=== PATIENT | female | born 1930 | race Caucasian/White ===

== ENCOUNTER 2017-11-14 11:50 | Inpatient (IN) | payer MEDICARE, OTHER ==
[2017-11-14] MEDS ORDERED: SODIUM CHLORIDE 1,000 ML IV STA (12:44)
[2017-11-14] MEDS ORDERED: ACETAMINOPHEN 1000 MG/100 ML VIAL (NON FORMULARY) IVPB ONE (12:47)
[2017-11-14] MEDS ORDERED: PIPERACILLIN/TAZOB 4.5 GM 4.5 GM in DEXTROSE 5%-WATER - 100 ML IVPB ONE (12:47)
[2017-11-14 12:49] VITALS: BMI 31.7
[2017-11-14] MEDS ORDERED: PIPERACILLIN/TAZOB 4.5 GM 4.5 GM/100 ML BAG IVPB ONE (13:05)
[2017-11-14] MEDS ORDERED: VANCOMYCIN 1 GRAM (PRE-DOCKED) 1,000 MG/250 ML BAG IVPB ONE (13:05)
[2017-11-14 13:10] LABS: BASO % 0.6 % (0-2.0); EOS % 0.2 % (0-4.5); HEMATOCRIT 40.9 % (32.4-45.2); HEMOGLOBIN 13.6 GM/dL (10.7-15.3); LYMPH % 7.7 % (8-40); MCH 32.2 pg (25.7-33.7); MCHC 33.3 g/dl (32.0-36.0); MEAN CELL VOLUME 96.9 fl (80-96); MEAN PLT VOLUME 11.3 fl (7.5-11.1); MONO % 10.4 % (3.8-10.2); NEUT % 81.1 % (42.8-82.8); PLATELET COUNT 118 K/MM3 (134-434); RBC 4.23 M/mm3 (3.60-5.2); RDW 12.2 % (11.6-15.6); WHITE BLOOD COUNT 6.1 K/mm3 (4.0-10.0)
[2017-11-14 13:13] LABS: URINE APPEARANCE CLEAR; URINE BILIRUBIN NEGATIVE (<2.0 mg/dL); URINE BLOOD NEGATIVE (NEGATIVE); URINE COLOR YELLOW; URINE GLUCOSE (UA) NEGATIVE (NEGATIVE); URINE KETONE NEGATIVE (NEGATIVE); URINE LEUK ESTERASE NEGATIVE (NEGATIVE); URINE NITRITE NEGATIVE (NEGATIVE); URINE UROBILINOGEN NEGATIVE mg/dL (0.2-1.0)
[2017-11-14 13:14] LABS: URINE PROTEIN 1+ (NEGATIVE)
--- NOTE | 2017-11-14 13:17 | PDOC ---
History of Present Illness - General History Source: Patient, Family, Snf Records Exam Limitations: Clinical Condition - History of Present Illness Initial Comments: 11/14/17 14:26 The patient is an 87 year old female, accompanied by her daughter, with past medical history of hypertension s/p pacemaker, arthritis, and dementia who presents to the ED with altered mental status that began today. The patients family member states she was increasingly lethargic over the past few days with a productive cough and decreased in appetite. This morning the daughter reports the patient was unarousable, not speaking clearly, and is not at her normal baseline where she is usually fully aware, walking and talking. She also reports the patient had urinary incontinence today as well. Family denies any sick contacts or recent illness. No further history can be provided due to patients change in mental status. <Kristie Mendoza - Last Filed: 11/14/17 15:59> <Valeria Leach - Last Filed: 11/14/17 16:21> - General Chief Complaint: Lethargy Stated Complaint: WEAKNESS Time Seen by Provider: 11/14/17 12:28 Past History <Kristie Mendoza - Last Filed: 11/14/17 15:59> - Past Medical History Cardiac Disorders: Yes COPD: No Dementia: Yes HTN: Yes Hypercholesterolemia: Yes Psychiatric Problems: Yes (DEPRESSION) - Surgical History Cardiac Surgery: Yes (PPM) - Suicide/Smoking/Psychosocial Hx Smoking History: Never smoked Have you smoked in the past 12 months: No Information on smoking cessation initiated: No Hx Alcohol Use: No Drug/Substance Use Hx: No Substance Use Type: None <Valeria Leach - Last Filed: 11/14/17 16:21> - Past Medical History Allergies/Adverse Reactions: Allergies Allergy/AdvReac Type Severity Reaction Status Date / Time No Known Allergies Allergy Verified 11/14/17 13:03 Home Medications: Ambulatory Orders Aspirin [ASA -] 81 mg PO DAILY 11/14/17 Furosemide [Lasix] 20 mg PO DAILY 11/14/17 Review of Systems - Review of Systems Able to Perform ROS?: No (due to clinical condition) <Kristie Mendoza - Last Filed: 11/14/17 15:59> *Physical Exam - Vital Signs Last Vital Signs Temp Pulse Resp BP Pulse Ox 101.4 F H 78 16 165/87 96 11/14/17 12:20 11/14/17 13:18 11/14/17 13:18 11/14/17 13:18 11/14/17 13:21 - Physical Exam Comments: 11/14/17 14:26 GENERAL: lethargic but arousable HEAD: No signs of trauma EYES: PERRLA, +roving eye movements ENT: mildly dry MM NECK: Normal ROM, supple, no lymphadenopathy, JVD, or masses LUNGS: Breath sounds equal, clear to auscultation bilaterally. No wheezes, and no crackles. tachypneic to 26, hypoxic to 87% RA, corrects to 94% on 4L HEART: Regular rate and rhythm, normal S1 and S2, no murmurs, rubs or gallops ABDOMEN: Obese.Soft, nontender, normoactive bowel sounds. No guarding, no rebound. No masses EXTREMITIES: Normal range of motion, no edema. No clubbing or cyanosis. No cords, erythema, or tenderness NEUROLOGICAL: cranial nerves intact, gait deferred SKIN: Warm, Dry, normal turgor, no rashes or lesions noted. <Kristie Mendoza - Last Filed: 11/14/17 15:59> - Vital Signs Last Vital Signs Temp Pulse Resp BP Pulse Ox 101.4 F H 80 16 164/78 88 L 11/14/17 12:20 11/14/17 12:20 11/14/17 12:20 11/14/17 12:20 11/14/17 12:20 <Valeria Leach - Last Filed: 11/14/17 16:21> ED Treatment Course - LABORATORY CBC & Chemistry Diagram: 11/14/17 12:50 11/14/17 12:50 - ADDITIONAL ORDERS Additional order review: Laboratory Results 11/14/17 11/14/17 11/14/17 13:00 12:51 12:50 PT with INR INR PTT (Actin FS) Sodium Potassium Chloride Carbon Dioxide Anion Gap BUN Creatinine Creat Clearance w eGFR POC Glucometer [id number] Random Glucose Lactic Acid Calcium Total Bilirubin AST ALT Alkaline Phosphatase Troponin I B-Natriuretic Peptide Cancelled Total Protein Albumin Urine Color Yellow Urine Appearance Clear Urine pH 5.0 Ur Specific [place] 1.017 Urine Protein 1+ H Urine Glucose (UA) Negative Urine Ketones Negative Urine Blood Negative Urine Nitrite Negative Urine Bilirubin Negative Urine Urobilinogen Negative Ur Leukocyte Esterase Negative Urine WBC (Auto) 2 Urine RBC (Auto) 1 Ur Epithelial Cells Rare 11/14/17 11/14/17 11/14/17 12:50 12:50 12:50 PT with INR INR PTT (Actin FS) Sodium 138 Potassium 4.0 Chloride 97 L Carbon Dioxide 32 Anion Gap 9 BUN 24 H Creatinine 1.5 H Creat Clearance w eGFR 33.00 POC Glucometer Random Glucose 195 H Lactic Acid 1.3 Calcium 9.4 Total Bilirubin 0.4 AST 26 ALT 19 Alkaline Phosphatase 70 Troponin I 0.14 H B-Natriuretic Peptide 3376.64 H Total Protein 7.5 Albumin 4.1 Urine Color Urine Appearance Urine pH Ur Specific [place] Urine Protein Urine Glucose (UA) Urine Ketones Urine Blood Urine Nitrite Urine Bilirubin Urine Urobilinogen Ur Leukocyte Esterase Urine WBC (Auto) Urine RBC (Auto) Ur Epithelial Cells 11/14/17 12:50 PT with INR 11.60 INR 1.03 PTT (Actin FS) 29.6 Sodium Potassium Chloride Carbon Dioxide Anion Gap BUN Creatinine Creat Clearance w eGFR POC Glucometer Random Glucose Lactic Acid Calcium Total Bilirubin AST ALT Alkaline Phosphatase Troponin I B-Natriuretic Peptide Total Protein Albumin Urine Color Urine Appearance Urine pH Ur Specific [place] Urine Protein Urine Glucose (UA) Urine Ketones Urine Blood Urine Nitrite Urine Bilirubin Urine Urobilinogen Ur Leukocyte Esterase Urine WBC (Auto) Urine RBC (Auto) Ur Epithelial Cells 11/14/17 12:50 Influenza Types A,B Antigen (KOBI) - Final Nasopharyngeal Swab - Final 11/14/17 11/14/17 12:51 12:50 RBC 4.23 MCV 96.9 H MCHC 33.3 RDW 12.2 MPV 11.3 H Neutrophils % 81.1 Lymphocytes % 7.7 L Monocytes % 10.4 H Eosinophils % 0.2 Basophils % 0.6 POC Glucometer [phone] - RADIOLOGY Radiograph Interpretation: 11/14/17 15:[address] as reviewed by Dr. Davies reports mild atrophy and extensive periventricular chronic microvascular ischemic changes. 4 mm focal hyperdensity in the right cerebellum, medially seen on axial image number 8 that may represent a tiny focus of acute/subacute hemmorhage, contusion in view of the clinical history. 11/14/17 15:25 Chest X-ray as reviewed by Dr. Anderson reports cardiomegaly but no acute disease. - Medications Given in the ED: ED Medications Discontinued Medications Generic Name Dose Route Start Last Admin Trade Name Marciano PRN Reason Stop Dose Admin Acetaminophen 1,000 mg 11/14/17 12:47 11/14/17 13:05 Ofirmev Injection - IVPB 11/14/17 12:48 1,000 mg ONCE ONE Administration Piperacillin Sod/Tazobactam 100 mls @ 200 mls/hr 11/14/17 12:47 11/14/17 13: 14 Sod 4.5 gm/ Dextrose IVPB 11/14/17 13:16 200 mls/hr ONCE ONE Administration Protocol <Kristie Mendoza - Last Filed: 11/14/17 15:59> - LABORATORY CBC & Chemistry Diagram: 11/14/17 12:50 11/14/17 12:50 - ADDITIONAL ORDERS Additional order review: Laboratory Results 11/14/17 11/14/17 13:00 12:50 B-Natriuretic Peptide Cancelled Urine Color Yellow Urine Appearance Clear Urine pH 5.0 Ur Specific [place] 1.017 Urine Protein 1+ H Urine Glucose (UA) Negative Urine Ketones Negative Urine Blood Negative Urine Nitrite Negative Urine Bilirubin Negative Urine Urobilinogen Negative Ur Leukocyte Esterase Negative - RADIOLOGY Radiology Studies Ordered: Category Date Time Status HEAD CT WITHOUT CONTRAST [CT] Stat CT Scan 11/14/17 12:46 Ordered CHEST X-RAY PORTABLE* [RAD] Stat Radiology 11/14/17 12:44 Completed <Valeria Leach - Last Filed: 11/14/17 16:21> Medical Decision Making - Medical Decision Making 11/14/17 15:59 Phone call placed to neurosurgery electrical electronics engineers. Case discussed with Dr. Ric Minor <Kristie Mendoza - Last Filed: 11/14/17 15:59> - Medical Decision Making 11/14/17 13:38 87-year-old female history of pacemaker, dementia, hypertension, cardiac arrest 5 years ago secondary to respiratory failure presents the emergency department with shortness of breath, new urine incontinence, hypoxia to 87% on room air and fever to 101.4. Patient's daughter reports she's had a cough for 3 days, however this morning was very weak and unable to get out of bed. Daughter reports she is lethargic, when at baseline she is very active, goes to the supermarket, and even partakes in dancing lessons. Concern for infection, possible pneumonia versus urinary tract infection. Will obtain a CT head to eval for intracranial pathology. Will cover empirically, patient will require admission 11/14/17 16:15 Flu A + Tamiflu given Pt continues to have O2 requirement +trop leak 0.49 BNP elevated CXR negative, will order CT Chest for further PNA eval CTh with 4mm possible SAH? pt with no head trauma Discussed case with Dr. Minor from [facility], will repeat CTH in 6hrs. He states 4mm lesion is unlikely to make patient that altered Case discussed with COUNTRY MANAGER Roxy, pt accepted for admission to inpatient telemetry under Dr. Mera Case discussed in detail with admitting physician including history, physical exam and ancillary studies. Admitting physician has assumed care for the patient, will follow all pending diagnostics and will complete the evaluation and treatment. <Valeria Leach - Last Filed: 11/14/17 16:21> *DC/Admit/Observation/Transfer - Attestations Scribe Attestion: 11/14/17 14:27 Documentation prepared by Kristie Mendoza, acting as program medical director for Valeria Leach MD. <Kristie Mendoza - Last Filed: 11/14/17 15:59> - Discharge Dispostion Admit: Yes - Attestations Physician Attestion: 11/14/17 16:21 I, Dr. Valeria Leach MD, attest that this document has been prepared under my direction and personally reviewed by me in its entirety. I further attest, that it accurately reflects all work, treatment, procedures and medical decision -making performed by me. <Valeria Leach - Last Filed: 11/14/17 16:21> Diagnosis at time of Disposition: Hypoxia, Altered mental status, Influenza A - Discharge Dispostion Condition at time of disposition: Stable - Referrals Referrals: Kev Justice MD [Primary Care Provider] - - Patient Instructions - Post Discharge Activity
[2017-11-14 13:27] LABS: INR 1.03 (0.82-1.09); PROTHROMBIN TIME (PATIENT) 11.6 SEC (9.98-11.88)
[2017-11-14 13:27] LABS: EPI CELLS RARE /HPF (FEW)
[2017-11-14 13:29] LABS: ACTIVATED PTT 29.6 SECONDS (26.9-34.4)
[2017-11-14] MEDS ORDERED: VANCOMYCIN 1,000 MG in DEXTROSE 5%-WATER - 250 ML IVPB ONE (13:30)
[2017-11-14 13:51] LABS: ALBUMIN 4.1 g/dl (3.4-5.0); ANION GAP 9 (8-16); BILIRUBIN,TOTAL 0.4 mg/dL (0.2-1.0); BLOOD UREA NITROGEN 24 mg/dL (7-18); CALCIUM 9.4 mg/dL (8.5-10.1); CHLORIDE 97 mmol/L (98-107); CO2 32 mmol/L (21-32); CREATININE 1.5 mg/dL (0.55-1.02); GLUCOSE,RANDOM 195 mg/dL (74-106); SGOT/AST 26 U/L (15-37); SGPT/ALT 19 U/L (12-78); SODIUM 138 mmol/L (136-145); TOT PROT 7.5 g/dl (6.4-8.2)
[2017-11-14 13:53] LABS: ALK PHOS 70 U/L (45-117); N-TERMINAL BNP 3376.64 pg/ml (5-450)
[2017-11-14] MEDS ORDERED: OSELTAMIVIR PHOSPHATE 75 MG CAPSULE PO ONE (13:53)
[2017-11-14 14:41] LABS: VENOUS PC02 55.6 mmHg (38-52); VENOUS PH 7.34 (7.32-7.42); VENOUS PO2 28.7 mmHg (28-48)
[2017-11-14] MEDS ORDERED: OSELTAMIVIR PHOSPHATE 75 MG CAPSULE ONE (15:18)
--- NOTE | 2017-11-14 16:53 | EKG ---
Test Reason : Blood Pressure : / mmHG Vent. Rate : 084 BPM Atrial Rate : 084 BPM P-R Int : 178 ms QRS Dur : 172 ms QT Int : 480 ms P-R-T Axes : 067 -69 102 degrees QTc Int : 567 ms Atrial-sensed ventricular-paced rhythm ABNORMAL ECG NO PREVIOUS ECGS AVAILABLE Confirmed by MD Jerrod, Dewey ([id number]) on 11/14/2017 4:52:33 PM Referred By: Confirmed By:Deewy Elder MD
--- NOTE | 2017-11-14 17:26 | PN ---
Progress Note (short form) - Note Progress Note: NEUROSURGERY H/o hypertension s/p pacemaker, OA and dementia who presents to the ED with altered mental status today. The patients family member reported pt to be increasingly lethargic over the past few days with a productive cough and decreased in appetite. This morning the daughter reports the patient was unarousable, not speaking clearly, and is not at her normal baseline where she is usually fully aware, walking and talking. Urinary incontinence is also reported. Daughter at bedside in ED. PE: T 98.9, VSS HEENT- NBC/AT; neck- supple; cor- RR; lungs- decreased BS LL B; ext- no sign of DVT Lethargic, minimally arousable, does not follow commands well CN- intact II-XII; Motor- 4/5 b UE/LE; Sensation- intact LT; DTR- hyporeflexic INR 1.03, ptt 29.6; WBC 6.1, Hgb 13.[address]- extensive B periventricular small vessel dz; moderate atrophy, R cerebellar dentate 3 mm hyperdensity; small hypertensive bleed vs cavernous angioma Influenza A Extensive periventricular microvascular disease, though chronic appearing Repeat head CT in 6 hoursto ascertain stability of R cerebellar small hyperdensity No anticonvulsant given infratentorial lesion D/w ED team and daughter
--- NOTE | 2017-11-14 17:42 | HP ---
CHIEF COMPLAINT: Altered mental status PCP: unknown HISTORY OF PRESENT ILLNESS: Obtained from chart review, patient not speaking This is an 87 year old female with PMHx of arthritis, dementia, HTN, pacemaker, who presented to the ED with altered mental status. The patient was increasingly more lethargic over the past few days with a productive cough, runny nose, and decreased appetite. The daughter reported this morning she was unarousable and then not speaking clearly. She also fell twice (no head trauma) . The patient also had one episode of urinary incontinence today as well. ER course was notable for: (1) Temp 101.4, pulse 80, BP 164/78, resp 16, O2 88% on RA (2) Platelets 118 (3) Cr 1.5 (4) Trop 0.14 (5) Influenza A positive (6) Head CT: moderate atrophy and extensive periventricular chronic microvascular ischemic changes. 4mm focal hyperdenisty in the right cerebellum, medially (7) Chest X-ray with no acute disease (8) UA negative Recent Travel: unknown PAST MEDICAL HISTORY: as above PAST SURGICAL HISTORY: as above Social History: Smoking: unable to obtain Alcohol: unable to obtain Drugs: unable to obtain Family History: Allergies No Known Allergies Allergy (Verified 11/14/17 13:03) HOME MEDICATIONS: Home Medications Medication Instructions Recorded Aspirin [ASA -] 81 mg PO DAILY 11/14/17 Furosemide [Lasix] 20 mg PO DAILY 11/14/17 REVIEW OF SYSTEMS: limited, obtained from chart review HEENT: Absent: nasal discharge RESPIRATORY: +cough GENITOURINARY: Urinary incontinence this morning NEUROLOGIC: Lethargy, change in mental status x3 days. PHYSICAL EXAMINATION Vital Signs - 24 hr 11/14/17 11/14/17 11/14/17 12:20 13:18 13:21 Temperature 101.4 F H Pulse Rate 80 Pulse Rate [ 78 Apical] Respiratory 16 16 Rate Blood Pressure 164/78 Blood Pressure 165/87 [Right Arm] O2 Sat by Pulse 88 L 96 96 Oximetry (%) 11/14/17 15:25 Temperature 98.9 F Pulse Rate Pulse Rate [ 69 Apical] Respiratory 17 Rate Blood Pressure Blood Pressure 144/66 [Right Arm] O2 Sat by Pulse 96 Oximetry (%) GENERAL: Lethargic, eyes closed. Moans with verbal stimuli HEAD: Normal with no signs of trauma. EYES: Uncooperative for exam EARS, NOSE, THROAT: Ears normal, nares patent. Moist mucous membranes. LUNGS: Breath sounds equal, clear to auscultation bilaterally. HEART: Regular rate and rhythm, normal S1 and S2 ABDOMEN: Soft, nontender, not distended, normoactive bowel sounds UPPER EXTREMITIES: 2+ pulses, warm, well-perfused. No cyanosis. No clubbing. No peripheral edema. LOWER EXTREMITIES: 2+ pulses, warm, well-perfused. No calf tenderness. No peripheral edema. NEUROLOGICAL: Unable to assess cranial nerves, patient uncooperative PSYCHIATRIC: Lethargic SKIN: Warm, dry, normal turgor, normal capillary refill. Laboratory Results - last 24 hr 11/14/17 11/14/17 11/14/17 12:44 12:50 12:50 WBC 6.1 RBC 4.23 Hgb 13.6 Hct 40.9 MCV 96.9 H MCH 32.2 MCHC 33.3 RDW 12.2 Plt Count 118 L MPV 11.3 H Neutrophils % 81.1 Lymphocytes % 7.7 L Monocytes % 10.4 H Eosinophils % 0.2 Basophils % 0.6 PT with INR 11.60 INR 1.03 PTT (Actin FS) 29.6 VBG pH 7.34 POC VBG pCO2 55.6 H POC VBG pO2 28.7 Mixed VBG HCO3 28.9 H Sodium Potassium Chloride Carbon Dioxide Anion Gap BUN Creatinine Creat Clearance w eGFR POC Glucometer Random Glucose Lactic Acid Calcium Total Bilirubin AST ALT Alkaline Phosphatase Troponin I B-Natriuretic Peptide Total Protein Albumin Urine Color Urine Appearance Urine pH Ur Specific [place] Urine Protein Urine Glucose (UA) Urine Ketones Urine Blood Urine Nitrite Urine Bilirubin Urine Urobilinogen Ur Leukocyte Esterase Urine WBC (Auto) Urine RBC (Auto) Ur Epithelial Cells 11/14/17 11/14/17 11/14/17 12:50 12:50 12:50 WBC RBC Hgb Hct MCV MCH MCHC RDW Plt Count MPV Neutrophils % Lymphocytes % Monocytes % Eosinophils % Basophils % PT with INR INR PTT (Actin FS) VBG pH POC VBG pCO2 POC VBG pO2 Mixed VBG HCO3 Sodium 138 Potassium 4.0 Chloride 97 L Carbon Dioxide 32 Anion Gap 9 BUN 24 H Creatinine 1.5 H Creat Clearance w eGFR 33.00 POC Glucometer Random Glucose 195 H Lactic Acid 1.3 Calcium 9.4 Total Bilirubin 0.4 AST 26 ALT 19 Alkaline Phosphatase 70 Troponin I 0.14 H B-Natriuretic Peptide 3376.64 H Total Protein 7.5 Albumin 4.1 Urine Color Urine Appearance Urine pH Ur Specific [place] Urine Protein Urine Glucose (UA) Urine Ketones Urine Blood Urine Nitrite Urine Bilirubin Urine Urobilinogen Ur Leukocyte Esterase Urine WBC (Auto) Urine RBC (Auto) Ur Epithelial Cells 11/14/17 11/14/17 11/14/17 12:50 12:51 13:00 WBC RBC Hgb Hct MCV MCH MCHC RDW Plt Count MPV Neutrophils % Lymphocytes % Monocytes % Eosinophils % Basophils % PT with INR INR PTT (Actin FS) VBG pH POC VBG pCO2 POC VBG pO2 Mixed VBG HCO3 Sodium Potassium Chloride Carbon Dioxide Anion Gap BUN Creatinine Creat Clearance w eGFR POC Glucometer 198.28996 Random Glucose Lactic Acid Calcium Total Bilirubin AST ALT Alkaline Phosphatase Troponin I B-Natriuretic Peptide Cancelled Total Protein Albumin Urine Color Yellow Urine Appearance Clear Urine pH 5.0 Ur Specific [place] 1.017 Urine Protein 1+ H Urine Glucose (UA) Negative Urine Ketones Negative Urine Blood Negative Urine Nitrite Negative Urine Bilirubin Negative Urine Urobilinogen Negative Ur Leukocyte Esterase Negative Urine WBC (Auto) 2 Urine RBC (Auto) 1 Ur Epithelial Cells Rare Assessment: This is an 87 year old female with PMHx of arthritis, dementia, HTN , pacemaker, who presented to the ED with altered mental status. The patient was increasingly more lethargic over the past few days with a productive cough, runny nose, and decreased appetite. Plan: 1) Acute metabolic encephalopathy 2/2 influenza, Acute hypoxic respiratory failure 2/2 Influenza A - Isolation precautions - Tamiflu 30mg po bid (if more alert; crcl 36) - O2 via NC as needed - F/u chest ct; no evidence of acute process on x-ray. Given Zosyn and Vancomycin in the ED. Will hold abx and f/u CT chest, urine culture, blood cultures - F/u pulmonary consult 2) 4mm hyperdenisty in right cerebellum - Repeat head CT in 6 hours - Appreciate neurosurgery consult - F/u neurology consult 3) OPAL on CKD - UA with 1+ protein, indicating possible chronic kidney disease - Continue to trend, if Cr not improving, consider urine/kidney ultrasound, urine lytes 4) Pacemaker - F/u interrogation 5) F/E/N: - Monitor electrolytes - NPO until more awake and alert 6) Prophylaxis: - SCDs bilaterally - No chemical anticoagulation give CT head findings 7) Dispo: - Requires continued inpatient care CODE STATUS: FULL CODE Visit type - Emergency Visit Emergency Visit: Yes ED Registration Date: 11/14/17 Care time: The patient presented to the Emergency Department on the above date and was hospitalized for further evaluation of their emergent condition. - New Patient This patient is new to me today: Yes Date on this admission: 11/14/17 - Critical Care Critical Care patient: No Hospitalist Screening - Colonoscopy Questionnaire Colonoscopy Questionnaire: Colonoscopy Questionnaire - Patient: 50 - 75 years old and never had a screening colonoscopy: Unknown History of colon or rectal polyps, or CA: Unknown History of IBD, Crohn's disease or UC: Unknown History of abdominal radiation therapy as a child: Unknown - Relative: 1 with colon or rectal CA, or polyps at age 60 or younger: Unknown Colon or rectal CA diagnosed at age 45 or younger: Unknown Multiple relatives with colon or rectal CA: Unknown - Outcome: Screening Result: Negative Screen
[2017-11-15] MEDS: ALBUTEROL SO4 0.083% IH SOL 2.5 MG/3 ML VIAL.NEB. NEB PRN (02:02)
[2017-11-15] MEDS ORDERED: HEMOQUE TEST 1 EACH EACH ONE (02:03)
[2017-11-15] MEDS ORDERED: ALBUTEROL SO4 0.083% IH SOL 2.5 MG/3 ML VIAL.NEB. NEB ONE (02:03)
[2017-11-15] MEDS: OSELTAMIVIR PHOSPHATE 30 MG CAPSULE PO SCH ×2 (06:42→18:57)
--- NOTE | 2017-11-15 07:52 | CONS ---
DATE OF CONSULTATION: REQUESTING PHYSICIAN: Dr. Leach MINE SURVEYOR: Jesse Pyle MD, Neurosurgery. CHIEF COMPLAINT: Cough and altered mental status. HISTORY OF PRESENT ILLNESS: The patient is an 87-year-old right-handed female with history of hypertension, osteoarthritis, pacemaker placement, borderline diabetes, dementia, who was found to have altered mental status changes today at home. She had moved from [place] to [place] recently. The patient has become increasingly lethargic over the past 2 days with a productive cough and decreased mental status and appetite. She was not arousable today and was not speaking clearly and was brought in by the daughter. At baseline, she is able to walk and able to perform most activities of daily living on her own. The daughter was present through the examination. PAST MEDICAL HISTORY: Significant for hypertension, pacemaker, osteoarthritis, and dementia. CURRENT MEDICATIONS: Included baby aspirin and Lasix. ALLERGIES: There are no known drug allergies. FAMILY HISTORY: Noncontributory. SOCIAL HISTORY: She does not smoke or drink. She lives at home with her daughter. REVIEW OF SYSTEMS: Otherwise negative for other major constitutional, head and neck, cardiovascular, pulmonary, gastrointestinal, genitourinary, endocrinological, neurological, psychological problem except for the above. PHYSICAL EXAMINATION: General: She is drowsy. Vital Signs: Temperature is 98.9. Blood pressure is 147/72 with a pulse rate of 65. O2 saturation is 96% on 2 L. HEENT: Head normocephalic, atraumatic. Anicteric. Neck: Supple, with no carotid bruit. There is no obvious nuchal rigidity. Coronary: Examination demonstrated a regular rhythm. Lungs: Clear. There is an implanted pacemaker in the chest. Lungs show decreased breath sounds in the bases. Abdomen: Obese but benign. Extremities: No signs of DVT. Neurologic: She is drowsy and periodically arousable. She does not consistently follow commands. Cranial nerve examination is grossly intact. Motor examination shows her to have at least 3/5 strength upper and lower extremities; however, she does not follow commands enough for one to perform a full exam. Sensory examination is grossly intact to light touch. Deep tendon reflexes are hyporeflexic throughout. LABORATORY: Examination shows white blood cell count of 6.1. Hemoglobin was 13.6. Platelet count is 118,000. INR is 1.03 and PTT is 29.6. Blood gas shows a PCO2 of 55.6 and PO2 was 28.7, with pH of 7.36. Serum sodium was 138. BUN and creatinine are 24 and 1.5, respectively. Urinalysis shows 2 RBCs and 1 WBC. Leukocyte esterase was negative. Chest x-ray shows some cardiomegaly with a dual-chamber pacemaker in place. There is no acute infiltrate. CT scan of the head demonstrated marked periventricular small vessel disease. There is mild atrophy. There is a 3- to 4-mm right cerebellar dentate hyperdensity which could be acute/subacute hemorrhage. IMPRESSION: 1. Right cerebellar dentate 3- to 4-mm hyperdensity, rule out small hypertensive hemorrhage, though the patient is not hypertensive at this time. 2. Influenza A positive. 3. Obesity/borderline diabetes. 4. Cardiac arrhythmia status post pacemaker placement. 5. Dementia. RECOMMENDATIONS: The patient presents with several-day history of decreasing appetite and this morning presented with worsening mental status. She has no fever in the emergency room, even though she had had a cough for several days. Influenza A antigen was positive. She should be treated by her medical team as such. She does have a punctate hyperdensity in the right cerebellar dentate region which could be a cavernous angioma or small hypertensive hemorrhage in the acute/subacute stage. A repeat CT scan is to be done in the next 6-12 hours or so to assess the nature and the stability of the lesion. Given the relatively small lesion in the right cerebellum, I do not expect that to be the cause of her current mental status deterioration. The patient does have underlying marked periventricular small vessel disease, but that is also unlikely to be the cause of her current acute deterioration. The above was discussed with patient at bedside as well as the emergency room team. All questions were answered at bedside. JESSE PYLE M.D. ZACHARY/[id number]
[2017-11-15 07:56] LABS: BASO % 0.5 % (0-2.0); EOS % 0.1 % (0-4.5); HEMATOCRIT 37.6 % (32.4-45.2); HEMOGLOBIN 12.8 GM/dL (10.7-15.3); LYMPH % 19.7 % (8-40); MCH 32.7 pg (25.7-33.7); MEAN CELL VOLUME 96.3 fl (80-96); MEAN PLT VOLUME 11.3 fl (7.5-11.1); MONO % 15.4 % (3.8-10.2); NEUT % 64.3 % (42.8-82.8); PLATELET COUNT 105 K/MM3 (134-434); RBC 3.91 M/mm3 (3.60-5.2); RDW 12.2 % (11.6-15.6); WHITE BLOOD COUNT 5.8 K/mm3 (4.0-10.0)
--- NOTE | 2017-11-15 08:10 | PN ---
Progress Note (short form) - Note Progress Note: NEUROSURGERY No new reported issues PE: Tmax 101.4 now 100.3; VSS HEENT- NC/AT; neck- supple; cor- RR; lungs- decreased BS LL B; ext- no sign of DVT Lethargic, minimally arousable, does not follow commands well CN- intact II-XII; Motor- 4/5 b UE/LE; Sensation- intact LT; DTR- hyporeflexic INR 1.03, ptt 29.6; WBC 6.1, Hgb 13.[address]- extensive B periventricular small vessel dz; moderate atrophy, R cerebellar dentate 3 mm hyperdensity; small hypertensive bleed vs cavernous angioma F/u CT- unchanged faint R dentate hyperdenisty 3 mm; no other changes Influenza A+ Extensive periventricular microvascular disease, 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
[2017-11-15 08:15] LABS: ALBUMIN 3.4 g/dl (3.4-5.0); ANION GAP 6 (8-16); BLOOD UREA NITROGEN 22 mg/dL (7-18); CALCIUM 8.7 mg/dL (8.5-10.1); CHLORIDE 102 mmol/L (98-107); CO2 30 mmol/L (21-32); CREATININE 1.3 mg/dL (0.55-1.02); GLUCOSE,RANDOM 90 mg/dL (74-106); MAGNESIUM 1.8 mg/dL (1.8-2.4); POTASSIUM 3.7 mmol/L (3.5-5.1); SGOT/AST 29 U/L (15-37); SGPT/ALT 15 U/L (12-78); SODIUM 138 mmol/L (136-145)
[2017-11-15 08:17] LABS: ALK PHOS 61 U/L (45-117); BILIRUBIN,TOTAL 0.2 mg/dL (0.2-1.0); CHOLESTEROL 172 mg/dL (50-200); HDL CHOLESTEROL 55 mg/dL (40-60); LDL CHOLESTEROL (ONLY SJRH) 105 mg/dL (5-100); PHOSPHOROUS 3.5 mg/dL (2.5-4.9); TOT PROT 6.7 g/dl (6.4-8.2); TRIGLYCERIDES 126 mg/dL (35-160)
--- NOTE | 2017-11-15 10:52 | CON.NEURO ---
Consult - History of Present Illness History of Present Illness: 87 year old female with PMHx of arthritis, dementia, HTN, pacemaker, who presented to the ED with altered mental status. The patient was increasingly more lethargic over the past few days with a productive cough, runny nose, and decreased appetite. The daughter reported this morning she was unarousable and then not speaking clearly. She also fell twice (no head trauma). The patient also had one episode of urinary incontinence today as well. Pt sleeping awakens but then goes back to asleep. she is a very limited HX. Head CT: moderate atrophy and extensive periventricular chronic microvascular ischemic changes. 4mm focal hyperdenisty in the right cerebellum, medially - Alcohol/Substance Use Hx Alcohol Use: No - Smoking History Smoking history: Never smoked Have you smoked in the past 12 months: No Home Medications - Allergies Allergies/Adverse Reactions: Allergies Allergy/AdvReac Type Severity Reaction Status Date / Time No Known Allergies Allergy Verified 11/14/17 13:03 - Home Medications Home Medications: Ambulatory Orders Aspirin [ASA -] 81 mg PO DAILY 11/14/17 Furosemide [Lasix] 20 mg PO DAILY 11/14/17 Physical Exam-Neuro Vital Signs: Vital Signs Temperature 100.3 F H 11/14/17 23:51 Pulse Rate 77 11/15/17 06:37 Respiratory Rate 21 11/15/17 06:37 Blood Pressure 115/54 11/15/17 06:37 O2 Sat by Pulse Oximetry (%) 97 11/15/17 06:37 Labs: CBC, BMP 11/15/17 07:13 11/15/17 07:13 INR, PTT INR 1.03 (0.82-1.09) 11/14/17 12:50 - Neuro Exam Level Of Consciousness: Yes: Sedated (sleepy, answers name buyt goes back to sleep, no facial, limited cooperation with strength testing, plantars dwon, no neck stiffness ) Problem List - Problems (1) Acute kidney injury Code(s): N17.9 - ACUTE KIDNEY FAILURE, UNSPECIFIED (2) Altered mental status Code(s): R41.82 - ALTERED MENTAL STATUS, UNSPECIFIED (3) Hypoxia Code(s): R09.02 - HYPOXEMIA (4) Influenza A Code(s): J10.1 - FLU DUE TO OTH IDENT INFLUENZA VIRUS W OTH RESP MANIFEST Assessment/Plan suspect encephalopathy from influeza, ARF, ? component of hypoxia CT -r cerebellar hyperdentisty -- may have small hypertensive bleed -would no account for mental state repeat CT in AM (or just get MRI BRAIN ) + viral source, less likely meningitis /encephalitis --if continues to be sedated will LP metabolic KULKARNI and PULM ERIKA Mccain
--- NOTE | 2017-11-15 11:17 | CON.CARD ---
Consult Consult Specialty:: Cardiology Referred by:: Gianna Mera Reason for Consultation:: Troponin - History of Present Illness Chief Complaint: AMS. cough. fever History of Present Illness: 87 year old female with a pmhx of dementia, arthritis, htn, and h/o ppm who presents with worsening lethargy over last few days. +cough and runny nose. No chest pain. No palpitations. Patient was less arousable this morning and fell twice. 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 Cardio/Vascular: Yes: HTN, Other (ppm) - Alcohol/Substance Use Hx Alcohol Use: No - Smoking History Smoking history: Never smoked Have you smoked in the past 12 months: No Home Medications - Allergies Allergies/Adverse Reactions: Allergies Allergy/AdvReac Type Severity Reaction Status Date / Time No Known Allergies Allergy Verified 11/14/17 13:03 - Home Medications Home Medications: Ambulatory Orders Aspirin [ASA -] 81 mg PO DAILY 11/14/17 Furosemide [Lasix] 20 mg PO DAILY 11/14/17 Vital Signs: Vital Signs Temperature 100.3 F H 11/14/17 23:51 Pulse Rate 77 11/15/17 06:37 Respiratory Rate 21 11/15/17 06:37 Blood Pressure 115/54 11/15/17 06:37 O2 Sat by Pulse Oximetry (%) 97 11/15/17 06:37 Constitutional: Yes: Mild Distress Neck: Yes: Supple Respiratory: Yes: Rales, Rhonchi Gastrointestinal: Yes: Soft Cardiovascular: Yes: Regular Rate and Rhythm JVD: No Carotid Bruit: No PMI: Non-Displaced Heart Sounds: Yes: S1, S2 Murmur: No: Systolic Murmur Edema: No - Other Data Labs, Other Data: CBC, BMP 11/15/17 07:13 11/15/17 07:13 INR, PTT INR 1.03 (0.82-1.09) 11/14/17 12:50 Troponin, BNP 11/14/17 11/14/17 11/14/17 12:50 12:50 12:50 Troponin I 0.14 H B-Natriuretic Peptide 3376.64 H Cancelled 11/14/17 11/15/17 11/15/17 19:20 07:13 09:20 Troponin I 0.15 H 0.18 H Cancelled B-Natriuretic Peptide Troponin, BNP 11/14/17 11/14/17 11/14/17 12:50 12:50 12:50 Troponin I 0.14 H B-Natriuretic Peptide 3376.64 H Cancelled 11/14/17 11/15/17 11/15/17 19:20 07:13 09:20 Troponin I 0.15 H 0.18 H Cancelled B-Natriuretic Peptide Imaging - Results Chest X-ray: Report Reviewed EKG: Image Reviewed Assessment/Plan 87 year old female with a pmhx of dementia, arthritis, htn, and h/o ppm who presents with worsening lethargy over last few days. +cough and runny nose. No chest pain. No palpitations. Patient was less arousable this morning and fell twice. Found to have temp 101.4 Influenza A positive Trop 0.14 CXR no acute disease EKG: a sensed and v paced at 84bpm 1) Troponin minimally elevated and not significantly rising on repeats with normal CK. No chest pain. This troponin level is likely due to demand/stress in setting of influenza and decreased 02 sats Would treat influenza as per primary team with tamiflu and supportive care On aspirin Should attempt to get records from patients doctors in [place] regarding cardiac history/ppm history
[2017-11-15] MEDS: SODIUM CHLORIDE 1,000 ML IV SCH (11:29)
--- NOTE | 2017-11-15 12:41 | CON.PULM ---
Consult Consult Specialty:: PULMONARY Referred by:: PRAKASH Hernandes Reason for Consultation:: influenza - History of Present Illness Chief Complaint: altered mental status History of Present Illness: 87yo female with h/o HTN, arthritis, s/p PPM who was admitted with worsening lethargy. History obtained from daughter at bedside. Reports a nonproductive cough, subjective fevers and decreased PO intake. No chest pain or palpitations. Reports multiple sick contacts at home. Febrile to 101.4 o presentation and hypoxic to 88% on room air. Reports being a never smoker. No history of asthma or COPD. 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 Cardio/Vascular: Yes: HTN, Other (ppm) - Alcohol/Substance Use Hx Alcohol Use: No - Smoking History Smoking history: Never smoked Have you smoked in the past 12 months: No Home Medications - Allergies Allergies/Adverse Reactions: Allergies Allergy/AdvReac Type Severity Reaction Status Date / Time No Known Allergies Allergy Verified 11/14/17 13:03 - Home Medications Home Medications: Ambulatory Orders Aspirin [ASA -] 81 mg PO DAILY 11/14/17 Furosemide [Lasix] 20 mg PO DAILY 11/14/17 Review of Systems - Review of Systems Constitutional: reports: Lethargy, Weakness Eyes: denies: Recent Change in Vision HENT: denies: Nasal Congestion, Throat Pain Neck: denies: Tenderness Cardiovascular: denies: Chest Pain, Palpitations, Shortness of Breath Respiratory: reports: Cough. denies: Hemoptysis, Wheezing Gastrointestinal: denies: Abdominal Pain, Nausea, Vomiting Genitourinary: denies: Dysuria, Hematuria Neurological: reports: Dizziness, Headache Physical Exam Vital Sings: Vital Signs Temperature 99 F 11/15/17 11:35 Pulse Rate 70 11/15/17 11:35 Respiratory Rate 16 11/15/17 11:35 Blood Pressure 141/58 11/15/17 11:35 O2 Sat by Pulse Oximetry (%) 98 11/15/17 11:35 Constitutional: Yes: Calm Eyes: Yes: Conjunctiva Clear, EOM Intact HENT: Yes: Atraumatic, Normocephalic Neck: Yes: Supple, Trachea Midline Cardiovascular: Yes: Regular Rate and Rhythm Respiratory: Yes: Rhonchi (bilateral) ...Clubbing: No Gastrointestinal: Yes: Normal Bowel Sounds, Soft. No: Tenderness Edema: No Neurological: Yes: Alert, Oriented Labs: CBC, BMP 11/15/17 07:13 11/15/17 07:13 Problem List - Problems (1) Influenza A Code(s): J10.1 - FLU DUE TO OTH IDENT INFLUENZA VIRUS W OTH RESP MANIFEST (2) Altered mental status Code(s): R41.82 - ALTERED MENTAL STATUS, UNSPECIFIED (3) Hypoxia Code(s): R09.02 - HYPOXEMIA (4) Sepsis Code(s): A41.9 - SEPSIS, UNSPECIFIED ORGANISM (5) Acute kidney injury Code(s): N17.9 - ACUTE KIDNEY FAILURE, UNSPECIFIED (6) Demand ischemia Code(s): I24.8 - OTHER FORMS OF ACUTE ISCHEMIC HEART DISEASE Assessment/Plan Altered Mental Status Influenza A r/o Bacteremia Sepsis Acute Kidney Injury +Troponins likely Demand Ischemia s/p PPM - tamiflu - inhaled bronchodilators standing and PRN - if no improvement of lung exam, can start short course of steroids - O2 to keep SpO2 >90% - monitor urine output, creatinine - empiric antibiotics, repeat blood cultures - ?contaminant - DVT prophylaxis Thank you for this consult Jose Osborne MD
--- NOTE | 2017-11-15 12:49 | PN ---
Progress Note (short form) - Note Progress Note: ID Consult dictated Acute influenza A +BC GPCCL ? significance Toxic metabolic encephalopathy Await c/s Tamiflu Empiric ceftriaxone/ vancomycin
--- NOTE | 2017-11-15 13:20 | CONS ---
DATE OF CONSULTATION: DATE OF DICTATION: 11/15/2017 INFECTIOUS DISEASE CONSULTATION HISTORY OF PRESENT ILLNESS: The patient is an 87-year-old female who was evaluated for sepsis and positive blood cultures. History was obtained from the chart as well as the patient's daughter, who was present at the time of the examination. She resides at home. The daughter reports that family members have been ill with a viral illness. Over the past 3 days she has had worsening generalized weakness, body ache with cough, anorexia and lethargy. She has also had increased confusion. She was evaluated in the emergency room, where she was noted to have fever of 101.4. A rapid influenza swab was performed and was positive for influenza A. She was started on Tamiflu. Blood cultures are now positive for gram-positive cocci in clusters in 1 bottle. At the present time she is awake and alert. Via scientific programmer, she denies any focal complaint. She complains of generalized weakness. No complaints of chest pain, shortness of breath, cough or sputum production. She has urinary incontinence. Denies dysuria. No vomiting or diarrhea. 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 PAST SURGICAL HISTORY: Status post section, permanent pacemaker. ALLERGIES: No known allergies. MEDICATIONS: Tylenol, albuterol, Tamiflu. SOCIAL HISTORY: She lives at home with family members. She is originally from the [place]. She has been living in the [place] for many years. Nonsmoker, nondrinker. No recent travel or recent hospitalizations. REVIEW OF SYSTEMS: Neurologic: Positive for altered mental status. No loss of consciousness, seizure activity or focal weakness. Cardiac: Negative for chest pain or palpitations. Respiratory: As per HPI. Gastrointestinal: Negative for vomiting or diarrhea. Genitourinary: Negative for urinary tract infection. LABORATORY DATA: White count 5.8, neutrophils 64, lymphocytes 19, monocytes 15; hematocrit 37.6; platelet count 105. BUN 22, creatinine 1.3. Liver enzymes normal. Urinalysis with 2 white cells. Urine culture negative. Influenza swab positive for influenza A. RADIOLOGY: CAT scan of the chest negative for acute infiltrate. PHYSICAL EXAMINATION: General: She is awake. She is lying on the stretcher. She is responsive. She is appropriate, as per her daughter. Breathing is nonlabored. Vital Signs: Temperature 99, maximum temperature 101.4. Blood pressure 141/58, pulse 70 and regular, respirations 16 per minute. HEENT: Sclerae anicteric. Dry mucous membranes. Cardiac: Heart sounds S1, S2. Lungs: Diminished breath sounds bilaterally. No rhonchi, rales or wheezing. Abdomen: Soft. No tenderness elicited. Obese. No mass, rebound or rigidity. Healed surgical scar. Extremities: Positive for edema. IMPRESSION: 1. Acute influenza A. 2. Positive blood culture, unclear significance. 3. Toxic metabolic encephalopathy. 4. Azotemia. 5. Thrombocytopenia, likely secondary to influenza versus sepsis. PLAN: Await culture results. We will repeat blood cultures. Empiric antibiotic coverage with ceftriaxone plus vancomycin. Continue Tamiflu. Droplet precautions. The case was discussed with the patient's daughter, present at the time of the examination. Thank you for the kind referral. GLENN MEYER M.D. [id number]
[2017-11-15] MEDS ORDERED: VANCOMYCIN 1 GRAM (PRE-DOCKED) 1,000 MG/250 ML BAG IVPB ONE (14:38)
[2017-11-15] MEDS: VANCOMYCIN 1,000 MG in DEXTROSE 5%-WATER - 250 ML IVPB SCH (14:45)
[2017-11-15] MEDS: ALBUTEROL SO4 2.5/IPRATROPIUM 0.5 INH SOL 3 ML VIAL.NEB. NEB SCH ×2 (16:00→20:40)
--- NOTE | 2017-11-15 17:47 | PN ---
Progress Note (short form) - Note Progress Note: Subjective: The patient was seen and examined at the bedside, lethargic, arousable to name Current Medications Generic Name Dose Route Start Last Admin Trade Name Marciano PRN Reason Stop Dose Admin Albuterol Sulfate 1 amp 11/14/17 17:36 11/15/17 02:02 Ventolin 0.083% Nebulizer Soln - NEB 1 amp Q6H PRN Administration SHORT OF BREATH/WHEEZING Albuterol/Ipratropium 1 amp 11/15/17 16:00 Duoneb - NEB RQID RAZ Sodium Chloride 1,000 mls @ 75 mls/hr 11/15/17 08:30 11/15/17 11:29 Normal Saline - IV 75 mls/hr ASDIR RAZ Administration Ceftriaxone Sodium 2 gm/ 100 mls @ 200 mls/hr 11/15/17 14:15 Dextrose IVPB DAILY RAZ Vancomycin HCl 1,000 mg/ 250 mls @ 166.667 mls/hr 11/15/17 14:00 11/15/17 14: 45 Dextrose IVPB 166.667 mls/hr Q24H RZA Administration Oseltamivir Phosphate 30 mg 11/15/17 06:00 11/15/17 06:42 Tamiflu - PO 11/20/17 05:59 Not Given BID@0600,1800 RAZ Objective: Vital Signs Period Temp Pulse Resp BP Sys/Childress Pulse Ox Last 24 Hr 99 F-100.3 F 66-92 16-21 115-167/54-89 95-100 Physical Exam: General: NAD, lethargic, opens eyes to name Lungs: B/l rhonchi Heart: RRR, S1S2 Abd: Soft, non-distended. Normoactive bowel sounds Ext: Warm, well-perfused. No edema CBCD WBC 5.8 K/mm3 (4.0-10.0) 11/15/17 07:13 RBC 3.91 M/mm3 (3.60-5.2) 11/15/17 07:13 Hgb 12.8 GM/dL (10.7-15.3) 11/15/17 07:13 Hct 37.6 % (32.4-45.2) 11/15/17 07:13 MCV 96.3 fl (80-96) H 11/15/17 07:13 MCHC 34.0 g/dl (32.0-36.0) 11/15/17 07:13 RDW 12.2 % (11.6-15.6) 11/15/17 07:13 Plt Count 105 K/MM3 (134-434) L 11/15/17 07:13 MPV 11.3 fl (7.5-11.1) H 11/15/17 07:13 CMP Sodium 138 mmol/L (136-145) 11/15/17 07:13 Potassium 3.7 mmol/L (3.5-5.1) 11/15/17 07:13 Chloride 102 mmol/L (98-107) 11/15/17 07:13 Carbon Dioxide 30 mmol/L (21-32) 11/15/17 07:13 Anion Gap 6 (8-16) L 11/15/17 07:13 BUN 22 mg/dL (7-18) H 11/15/17 07:13 Creatinine 1.3 mg/dL (0.55-1.02) H 11/15/17 07:13 Creat Clearance w eGFR 38.93 (>60) 11/15/17 07:13 Random Glucose 90 mg/dL (74-106) 11/15/17 07:13 Calcium 8.7 mg/dL (8.5-10.1) 11/15/17 07:13 Total Bilirubin 0.2 mg/dL (0.2-1.0) D 11/15/17 07:13 AST 29 U/L (15-37) 11/15/17 07:13 ALT 15 U/L (12-78) 11/15/17 07:13 Alkaline Phosphatase 61 U/L (45-117) 11/15/17 07:13 Total Protein 6.7 g/dl (6.4-8.2) 11/15/17 07:13 Albumin 3.4 g/dl (3.4-5.0) 11/15/17 07:13 CARDIAC ENZYMES Creatine Kinase 102 IU/L (26-192) 11/15/17 07:13 Troponin I 0.18 ng/ml (0.00-0.05) H 11/15/17 07:13 Microbiology 11/14/17 12:55 Blood - Peripheral Venous Blood Culture - Preliminary NO GROWTH OBTAINED AFTER 24 HOURS, INCUBATION TO CONTINUE FOR 4 DAYS. 11/14/17 13:00 Urine - Urine Clean Catch Urine Culture - Final NO GROWTH OBTAINED 11/14/17 12:50 Blood - Peripheral Venous Blood Culture - Preliminary Pending Organism 11/14/17 12:50 Nasopharyngeal Swab Influenza Types A,B Antigen (KOBI) - Final 11/14/17 12:50 Nasopharyngeal Swab - Final Assessment: This is an 87 year old female with PMHx of arthritis, dementia, HTN , pacemaker, who presented to the ED with altered mental status. The patient was increasingly more lethargic over the past few days with a productive cough, runny nose, and decreased appetite. 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 - Stable on repeat head CT - Appreciate neurosurgery consult - Appreciate neurology consult 4) OPAL on CKD - UA with 1+ protein, indicating possible chronic kidney disease - Cr improving 5) Pacemaker - Appreciate cardiology consult 6) F/E/N: - Monitor electrolytes - NPO until more awake and alert 7) Prophylaxis: - SCDs bilaterally - No chemical anticoagulation give CT head findings 8) Dispo: - Requires continued inpatient care CODE STATUS: FULL CODE Visit type - Emergency Visit Emergency Visit: Yes ED Registration Date: 11/14/17 Care time: The patient presented to the Emergency Department on the above date and was hospitalized for further evaluation of their emergent condition. - New Patient This patient is new to me today: No - Critical Care Critical Care patient: No
[2017-11-15] MEDS: CEFTRIAXONE 2 GM in DEXTROSE 5%-WATER - 100 ML IVPB SCH (20:57)
[2017-11-15] MEDS ORDERED: ONDANSETRON 4 MG/2 ML VIAL IVPUSH ONE (21:45)
[2017-11-16] MEDS: OSELTAMIVIR PHOSPHATE 30 MG CAPSULE PO SCH ×2 (06:32→18:18)
[2017-11-16] MEDS: ALBUTEROL SO4 2.5/IPRATROPIUM 0.5 INH SOL 3 ML VIAL.NEB. NEB SCH ×4 (07:38→19:10)
[2017-11-16 08:52] LABS: HEMATOCRIT 36.1 % (32.4-45.2); HEMOGLOBIN 12.3 GM/dL (10.7-15.3); MCH 32.8 pg (25.7-33.7); MCHC 34.1 g/dl (32.0-36.0); MEAN CELL VOLUME 96.3 fl (80-96); MEAN PLT VOLUME 11.5 fl (7.5-11.1); PLATELET COUNT 104 K/MM3 (134-434); RBC 3.75 M/mm3 (3.60-5.2); RDW 12.1 % (11.6-15.6); WHITE BLOOD COUNT 4.4 K/mm3 (4.0-10.0)
--- NOTE | 2017-11-16 08:53 | PN ---
Progress Note (short form) - Note Progress Note: NEUROSURGERY No new reported issues Good appetite Occ H/A, no visual changes or weakness PE: Tmax 100; VSS HEENT- NC/AT; neck- supple; cor- RR; lungs- decreased BS LL B; ext- no sign of DVT Fully awake/alert, speaking, follows commands, much better than previously CN- intact II-XII; Motor- 4/5 b UE/LE; Sensation- intact LT; DTR- hyporeflexic Head CT- extensive B periventricular small vessel dz; moderate atrophy, R cerebellar dentate 3 mm hyperdensity; small hypertensive bleed vs cavernous angioma F/u CT- unchanged faint R dentate hyperdenisty 3 mm; no other changes Blood culture + 1/2 GPC in clusters Influenza A+ Extensive periventricular microvascular disease, chronic 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
[2017-11-16 09:18] LABS: ALBUMIN 3.3 g/dl (3.4-5.0); ANION GAP 10 (8-16); BILIRUBIN,TOTAL 0.3 mg/dL (0.2-1.0); BLOOD UREA NITROGEN 23 mg/dL (7-18); CALCIUM 8.1 mg/dL (8.5-10.1); CHLORIDE 102 mmol/L (98-107); CO2 28 mmol/L (21-32); CREATININE 1.2 mg/dL (0.55-1.02); GLUCOSE,RANDOM 98 mg/dL (74-106); POTASSIUM 3.7 mmol/L (3.5-5.1); SGOT/AST 30 U/L (15-37); SGPT/ALT 15 U/L (12-78); SODIUM 140 mmol/L (136-145); TOT PROT 6.5 g/dl (6.4-8.2)
[2017-11-16 09:19] LABS: ALK PHOS 60 U/L (45-117)
[2017-11-16] MEDS ORDERED: PT OWN MED DRAWER 7, Y5N ONE ×3 (09:50→13:31)
--- NOTE | 2017-11-16 09:50 | PN ---
Progress Note (short form) - Note Progress Note: Subjective: The patient was seen and examined at the bedside, awake, alert. She states she feels good today Current Medications Generic Name Dose Route Start Last Admin Trade Name Freq PRN Reason Stop Dose Admin Albuterol Sulfate 1 amp 11/14/17 17:36 11/15/17 02:02 Ventolin 0.083% Nebulizer Soln - NEB 1 amp Q6H PRN Administration SHORT OF BREATH/WHEEZING Albuterol/Ipratropium 1 amp 11/15/17 16:00 11/16/17 07:38 Duoneb - NEB 1 amp RQID RAZ Administration Sodium Chloride 1,000 mls @ 75 mls/hr 11/15/17 08:30 11/15/17 11:29 Normal Saline - IV 75 mls/hr ASDIR RAZ Administration Ceftriaxone Sodium 2 gm/ 100 mls @ 200 mls/hr 11/15/17 14:15 11/15/17 20:57 Dextrose IVPB 200 mls/hr DAILY RAZ Administration Vancomycin HCl 1,000 mg/ 250 mls @ 166.667 mls/hr 11/15/17 14:00 11/15/17 14: 45 Dextrose IVPB 166.667 mls/hr Q24H RAZ Administration Oseltamivir Phosphate 30 mg 11/15/17 06:00 11/16/17 06:32 Tamiflu - PO 11/20/17 05:59 30 mg BID@0600,1800 RAZ Administration Objective: Vital Signs Period Temp Pulse Resp BP Sys/Childress Pulse Ox Last 24 Hr 99 F-99.9 F 66-79 16-20 118-156/58-79 95-99 Physical Exam: General: NAD, awake, alert Lungs: B/l rhonchi Heart: RRR, S1S2 Abd: Soft, non-distended. Normoactive bowel sounds Ext: Warm, well-perfused. No edema CBCD WBC 4.4 K/mm3 (4.0-10.0) 11/16/17 07:56 RBC 3.75 M/mm3 (3.60-5.2) 11/16/17 07:56 Hgb 12.3 GM/dL (10.7-15.3) 11/16/17 07:56 Hct 36.1 % (32.4-45.2) 11/16/17 07:56 MCV 96.3 fl (80-96) H 11/16/17 07:56 MCHC 34.1 g/dl (32.0-36.0) 11/16/17 07:56 RDW 12.1 % (11.6-15.6) 11/16/17 07:56 Plt Count 104 K/MM3 (134-434) L 11/16/17 07:56 MPV 11.5 fl (7.5-11.1) H 11/16/17 07:56 CMP Sodium 140 mmol/L (136-145) 11/16/17 07:07 Potassium 3.7 mmol/L (3.5-5.1) 11/16/17 07:07 Chloride 102 mmol/L (98-107) 11/16/17 07:07 Carbon Dioxide 28 mmol/L (21-32) 11/16/17 07:07 Anion Gap 10 (8-16) 11/16/17 07:07 BUN 23 mg/dL (7-18) H 11/16/17 07:07 Creatinine 1.2 mg/dL (0.55-1.02) H 11/16/17 07:07 Creat Clearance w eGFR 42.70 (>60) 11/16/17 07:07 Random Glucose 98 mg/dL (74-106) 11/16/17 07:07 Calcium 8.1 mg/dL (8.5-10.1) L 11/16/17 07:07 Total Bilirubin 0.3 mg/dL (0.2-1.0) D 11/16/17 07:07 AST 30 U/L (15-37) 11/16/17 07:07 ALT 15 U/L (12-78) 11/16/17 07:07 Alkaline Phosphatase 60 U/L (45-117) 11/16/17 07:07 Total Protein 6.5 g/dl (6.4-8.2) 11/16/17 07:07 Albumin 3.3 g/dl (3.4-5.0) L 11/16/17 07:07 CARDIAC ENZYMES Creatine Kinase 137 IU/L (26-192) 11/16/17 07:07 Troponin I 0.15 ng/ml (0.00-0.05) H 11/16/17 07:07 Microbiology 11/14/17 12:50 Blood - Peripheral Venous Blood Culture - Preliminary Staphylococcus Coagulase Neg 11/14/17 12:55 Blood - Peripheral Venous Blood Culture - Preliminary NO GROWTH OBTAINED AFTER 24 HOURS, INCUBATION TO CONTINUE FOR 4 DAYS. 11/14/17 13:00 Urine - Urine Clean Catch Urine Culture - Final NO GROWTH OBTAINED 11/14/17 12:50 Nasopharyngeal Swab Influenza Types A,B Antigen (KOBI) - Final 11/14/17 12:50 Nasopharyngeal Swab - Final Assessment: This is an 87 year old female with PMHx of arthritis, dementia, HTN , pacemaker, who presented to the ED with altered mental status. The patient was increasingly more lethargic over the past few days with a productive cough, runny nose, and decreased appetite. 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 - Stable on repeat head CT - Appreciate neurosurgery consult - Appreciate neurology consult 4) OPAL on CKD - UA with 1+ protein, indicating possible chronic kidney disease - Cr improving 5) Pacemaker - Appreciate cardiology consult 6) F/E/N: - Monitor electrolytes - Regular diet 7) Prophylaxis: - SCDs bilaterally - No chemical anticoagulation give CT head findings 8) Dispo: - Requires continued inpatient care CODE STATUS: FULL CODE Visit type - Emergency Visit Emergency Visit: Yes ED Registration Date: 11/14/17 Care time: The patient presented to the Emergency Department on the above date and was hospitalized for further evaluation of their emergent condition. - New Patient This patient is new to me today: No - Critical Care Critical Care patient: No
[2017-11-16] MEDS: SODIUM CHLORIDE 1,000 ML IV SCH (09:53)
[2017-11-16] MEDS: CEFTRIAXONE 2 GM in DEXTROSE 5%-WATER - 100 ML IVPB SCH (09:54)
[2017-11-16] MEDS: VANCOMYCIN 1,000 MG in DEXTROSE 5%-WATER - 250 ML IVPB SCH (13:51)
--- NOTE | 2017-11-16 14:15 | PN ---
Progress Note (short form) - Note Progress Note: PULMONARY Mental status much improved. States breathing is better. +cough with yellow sputum. No chest pain. No fevers or chills. Last Vital Signs Temp Pulse Resp BP Pulse Ox 99.5 F 78 20 152/74 95 11/16/17 06:00 11/16/17 06:00 11/16/17 06:00 11/16/17 06:00 11/15/17 21:00 Gen: NAD at rest Heart: RRR Lung: less rhonchi Abd: soft, nontender Ext: no edema CBC, BMP 11/16/17 07:56 11/16/17 07:07 Active Medications Albuterol Sulfate (Ventolin 0.083% Nebulizer Soln -) 1 amp NEB Q6H PRN PRN Reason: SHORT OF BREATH/WHEEZING Last Admin: 11/15/17 02:02 Dose: 1 amp Albuterol/Ipratropium (Duoneb -) 1 amp NEB RQID [facility] Last Admin: 11/16/17 11:04 Dose: 1 amp Sodium Chloride (Normal Saline -) 1,000 mls @ 75 mls/hr IV ASDIR [facility] Last Admin: 11/16/17 09:53 Dose: 75 mls/hr Ceftriaxone Sodium 2 gm/ (Dextrose) 100 mls @ 200 mls/hr IVPB DAILY [facility] Last Admin: 11/16/17 09:54 Dose: 200 mls/hr Vancomycin HCl 1,000 mg/ (Dextrose) 250 mls @ 166.667 mls/hr IVPB Q24H [facility] Last Admin: 11/16/17 13:51 Dose: 166.667 mls/hr Oseltamivir Phosphate (Tamiflu -) 30 mg PO BID@0600,1800 [facility] Stop: 11/20/17 05:59 Last Admin: 11/16/17 06:32 Dose: 30 mg A/P Altered Mental Status Influenza A r/o Bacteremia Sepsis Acute Kidney Injury +Troponins likely Demand Ischemia s/p PPM - tamiflu - inhaled bronchodilators standing and PRN - lung exam improved today, if worsens can start short course of steroids - O2 to keep SpO2 >90% - monitor urine output, creatinine - empiric antibiotics, repeat blood cultures - ?contaminant - DVT prophylaxis Problem List - Problems (1) Influenza A Code(s): J10.1 - FLU DUE TO OTH IDENT INFLUENZA VIRUS W OTH RESP MANIFEST (2) Altered mental status Code(s): R41.82 - ALTERED MENTAL STATUS, UNSPECIFIED (3) Hypoxia Code(s): R09.02 - HYPOXEMIA (4) Sepsis Code(s): A41.9 - SEPSIS, UNSPECIFIED ORGANISM (5) Acute kidney injury Code(s): N17.9 - ACUTE KIDNEY FAILURE, UNSPECIFIED (6) Demand ischemia Code(s): I24.8 - OTHER FORMS OF ACUTE ISCHEMIC HEART DISEASE
--- NOTE | 2017-11-16 15:59 | PN ---
Progress Note, Physician History of Present Illness: OOB in chair Feeling better + moist cough Breathing non-labored Low grade temp BC SCN x 1 bottle - Current Medication List Current Medications: Active Medications Albuterol Sulfate (Ventolin 0.083% Nebulizer Soln -) 1 amp NEB Q6H PRN PRN Reason: SHORT OF BREATH/WHEEZING Last Admin: 11/15/17 02:02 Dose: 1 amp Albuterol/Ipratropium (Duoneb -) 1 amp NEB RQID [facility] Last Admin: 11/16/17 11:04 Dose: 1 amp Sodium Chloride (Normal Saline -) 1,000 mls @ 75 mls/hr IV ASDIR [facility] Last Admin: 11/16/17 09:53 Dose: 75 mls/hr Ceftriaxone Sodium 2 gm/ (Dextrose) 100 mls @ 200 mls/hr IVPB DAILY [facility] Last Admin: 11/16/17 09:54 Dose: 200 mls/hr Vancomycin HCl 1,000 mg/ (Dextrose) 250 mls @ 166.667 mls/hr IVPB Q24H [facility] Last Admin: 11/16/17 13:51 Dose: 166.667 mls/hr Oseltamivir Phosphate (Tamiflu -) 30 mg PO BID@0600,1800 [facility] Stop: 11/20/17 05:59 Last Admin: 11/16/17 06:32 Dose: 30 mg - Objective Vital Signs: Vital Signs Temperature 99.5 F 11/16/17 06:00 Pulse Rate 78 11/16/17 06:00 Respiratory Rate 20 11/16/17 06:00 Blood Pressure 152/74 11/16/17 06:00 O2 Sat by Pulse Oximetry (%) 95 11/15/17 21:00 Constitutional: Yes: No Distress, Obese Cardiovascular: Yes: Regular Rate and Rhythm, S1, S2 Respiratory: Yes: Other (+ crepitations R > L base) Gastrointestinal: Yes: Normal Bowel Sounds, Soft, Abdomen, Obese. No: Tenderness Edema: Yes Edema: LLE: 1+, RLE: 1+ Labs: CBC, BMP 11/16/17 07:56 11/16/17 07:07 INR, PTT INR 1.03 (0.82-1.09) 11/14/17 12:50 Assessment/Plan Acute influenza Toxic metabolic encephalopathy- improved + BC SCN = contaminant Azotemia Thrombocytopenia Continue Tamiflu/ ceftriaxone D/C vancomycin
--- NOTE | 2017-11-16 16:03 | PN ---
Progress Note, Physician Chief Complaint: SOB improved Confusion improving History of Present Illness: 87 year old female with a pmhx of dementia, arthritis, htn, and h/o ppm who presents with worsening lethargy over last few days. +cough and runny nose. No chest pain. No palpitations. Patient was less arousable this morning and fell twice. Found to have temp 101.4 Influenza A positive Trop 0.14 CXR no acute disease EKG: a sensed and v paced at 84bpm - Current Medication List Current Medications: Active Medications Albuterol Sulfate (Ventolin 0.083% Nebulizer Soln -) 1 amp NEB Q6H PRN PRN Reason: SHORT OF BREATH/WHEEZING Last Admin: 11/15/17 02:02 Dose: 1 amp Albuterol/Ipratropium (Duoneb -) 1 amp NEB RQID [facility] Last Admin: 11/16/17 11:04 Dose: 1 amp Sodium Chloride (Normal Saline -) 1,000 mls @ 75 mls/hr IV ASDIR [facility] Last Admin: 11/16/17 09:53 Dose: 75 mls/hr Ceftriaxone Sodium 2 gm/ (Dextrose) 100 mls @ 200 mls/hr IVPB DAILY [facility] Last Admin: 11/16/17 09:54 Dose: 200 mls/hr Vancomycin HCl 1,000 mg/ (Dextrose) 250 mls @ 166.667 mls/hr IVPB Q24H [facility] Last Admin: 11/16/17 13:51 Dose: 166.667 mls/hr Oseltamivir Phosphate (Tamiflu -) 30 mg PO BID@0600,1800 [facility] Stop: 11/20/17 05:59 Last Admin: 11/16/17 06:32 Dose: 30 mg - Objective Vital Signs: Vital Signs Temperature 99.8 F H 11/16/17 10:00 Pulse Rate 78 11/16/17 10:00 Respiratory Rate 20 11/16/17 10:00 Blood Pressure 136/58 11/16/17 10:00 O2 Sat by Pulse Oximetry (%) 96 11/16/17 09:00 Constitutional: Yes: No Distress Cardiovascular: Yes: Regular Rate and Rhythm, Murmur (3/6 HSM RUSB and apex), S1 , S2 Respiratory: Yes: Rhonchi Edema: No Labs: CBC, BMP 11/16/17 07:56 11/16/17 07:07 INR, PTT INR 1.03 (0.82-1.09) 11/14/17 12:50 Assessment/Plan 87 year old female with a pmhx of dementia, arthritis, htn, and h/o ppm who presents with worsening lethargy over last few days. +cough and runny nose. No chest pain. No palpitations. Patient was less arousable this morning and fell twice. Found to have temp 101.4 Influenza A positive Trop 0.14 CXR no acute disease EKG: a sensed and v paced at 84bpm 1) Troponin minimally elevated and not significantly rising on repeats with normal CK. No chest pain. This troponin level is likely due to demand/stress in setting of influenza and decreased 02 sats Would treat influenza as per primary team with tamiflu and supportive care On aspirin Echocardiogram with normal LVEF, regional wall motion abnormalities, mod to sev MR and mod AR. Should attempt to get records from patients doctors in [place] regarding cardiac history/ppm history. Needs outpt cardiac follow up. As an outpt should be started on bblocker
[2017-11-17] MEDS: ACETAMINOPHEN 325 MG TABLET (FP) PO PRN ×2 (01:34→21:12)
[2017-11-17] MEDS ORDERED: PT OWN MED DRAWER 7, Y5N ONE (05:34)
[2017-11-17] MEDS: OSELTAMIVIR PHOSPHATE 30 MG CAPSULE PO SCH ×2 (05:36→17:08)
[2017-11-17] MEDS: ALBUTEROL SO4 2.5/IPRATROPIUM 0.5 INH SOL 3 ML VIAL.NEB. NEB SCH ×4 (07:33→21:00)
--- NOTE | 2017-11-17 08:36 | PN ---
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
[2017-11-17] MEDS: CEFTRIAXONE 2 GM in DEXTROSE 5%-WATER - 100 ML IVPB SCH (09:58)
[2017-11-17] MEDS: SODIUM CHLORIDE 1,000 ML IV SCH (09:59)
[2017-11-17 10:17] LABS: BASO % 0.4 % (0-2.0); EOS % 1.9 % (0-4.5); HEMATOCRIT 34.9 % (32.4-45.2); HEMOGLOBIN 11.7 GM/dL (10.7-15.3); LYMPH % 26.7 % (8-40); MCH 32.4 pg (25.7-33.7); MCHC 33.4 g/dl (32.0-36.0); MEAN CELL VOLUME 96.9 fl (80-96); MONO % 10.3 % (3.8-10.2); NEUT % 60.7 % (42.8-82.8); PLATELET COUNT 108 K/MM3 (134-434); RDW 12.5 % (11.6-15.6); WHITE BLOOD COUNT 4.2 K/mm3 (4.0-10.0)
[2017-11-17 10:39] LABS: ALBUMIN 3.2 g/dl (3.4-5.0); ANION GAP 9 (8-16); BLOOD UREA NITROGEN 23 mg/dL (7-18); CALCIUM 7.9 mg/dL (8.5-10.1); CHLORIDE 105 mmol/L (98-107); CO2 26 mmol/L (21-32); CREATININE 1.2 mg/dL (0.55-1.02); GLUCOSE,RANDOM 161 mg/dL (74-106); POTASSIUM 3.6 mmol/L (3.5-5.1); SGOT/AST 30 U/L (15-37); SODIUM 140 mmol/L (136-145)
[2017-11-17 10:42] LABS: ALK PHOS 59 U/L (45-117); BILIRUBIN,TOTAL 0.2 mg/dL (0.2-1.0); SGPT/ALT 15 U/L (12-78); TOT PROT 6.7 g/dl (6.4-8.2)
--- NOTE | 2017-11-17 12:34 | PN ---
Progress Note, Physician History of Present Illness: pulmonary alert,oob-chair,still congested,+cough - Current Medication List Current Medications: Active Medications Acetaminophen (Tylenol -) 650 mg PO Q6H PRN PRN Reason: FEVER Last Admin: 11/17/17 01:34 Dose: 650 mg Albuterol Sulfate (Ventolin 0.083% Nebulizer Soln -) 1 amp NEB Q6H PRN PRN Reason: SHORT OF BREATH/WHEEZING Last Admin: 11/15/17 02:02 Dose: 1 amp Albuterol/Ipratropium (Duoneb -) 1 amp NEB RQID [facility] Last Admin: 11/17/17 11:09 Dose: 1 amp Sodium Chloride (Normal Saline -) 1,000 mls @ 75 mls/hr IV ASDIR [facility] Last Admin: 11/17/17 09:59 Dose: 75 mls/hr Ceftriaxone Sodium 2 gm/ (Dextrose) 100 mls @ 200 mls/hr IVPB DAILY [facility] Last Admin: 11/17/17 09:58 Dose: 200 mls/hr Oseltamivir Phosphate (Tamiflu -) 30 mg PO BID@0600,1800 [facility] Stop: 11/20/17 05:59 Last Admin: 11/17/17 05:36 Dose: 30 mg - Objective Vital Signs: Vital Signs Temperature 98.8 F 11/17/17 11:35 Pulse Rate 80 11/17/17 11:35 Respiratory Rate 22 11/17/17 11:35 Blood Pressure 177/65 11/17/17 11:35 O2 Sat by Pulse Oximetry (%) 90 L 11/17/17 09:00 Constitutional: Yes: Well Nourished, Calm Eyes: Yes: WNL HENT: Yes: WNL Neck: Yes: WNL Cardiovascular: Yes: Regular Rate and Rhythm, S1, S2 Respiratory: Yes: Wheezes (scattered ankit wheezes) Gastrointestinal: Yes: Normal Bowel Sounds, Soft Extremities: Yes: WNL Edema: No Labs: CBC, BMP 11/17/17 09:50 11/17/17 09:50 INR, PTT INR 1.03 (0.82-1.09) 11/14/17 12:50 Assessment/Plan A/P Altered Mental Status Influenza A r/o Bacteremia Sepsis Acute Kidney Injury +Troponins likely Demand Ischemia s/p PPM - tamiflu - inhaled bronchodilators standing and PRN - O2 to keep SpO2 >90% - monitor urine output, creatinine - empiric antibiotics, repeat blood cultures - ?contaminant - DVT prophylaxis - medrol X 24-48hrs Problem List - Problems (1) Influenza A Code(s): J10.1 - FLU DUE TO OTH IDENT INFLUENZA VIRUS W OTH RESP MANIFEST (2) Altered mental status Code(s): R41.82 - ALTERED MENTAL STATUS, UNSPECIFIED (3) Hypoxia Code(s): R09.02 - HYPOXEMIA (4) Sepsis Code(s): A41.9 - SEPSIS, UNSPECIFIED ORGANISM (5) Acute kidney injury Code(s): N17.9 - ACUTE KIDNEY FAILURE, UNSPECIFIED (6) Demand ischemia Code(s): I24.8 - OTHER FORMS OF ACUTE ISCHEMIC HEART DISEASE
--- NOTE | 2017-11-17 13:06 | PN ---
Progress Note, Physician History of Present Illness: OOB in chair Feeling better No focal complaint + moist cough Breathing non-labored Low grade temp BC SCN x 1 bottle ( contaminant) - Current Medication List Current Medications: Active Medications Acetaminophen (Tylenol -) 650 mg PO Q6H PRN PRN Reason: FEVER Last Admin: 11/17/17 01:34 Dose: 650 mg Albuterol Sulfate (Ventolin 0.083% Nebulizer Soln -) 1 amp NEB Q6H PRN PRN Reason: SHORT OF BREATH/WHEEZING Last Admin: 11/15/17 02:02 Dose: 1 amp Albuterol/Ipratropium (Duoneb -) 1 amp NEB RQID [facility] Last Admin: 11/17/17 11:09 Dose: 1 amp Sodium Chloride (Normal Saline -) 1,000 mls @ 75 mls/hr IV ASDIR [facility] Last Admin: 11/17/17 09:59 Dose: 75 mls/hr Ceftriaxone Sodium 2 gm/ (Dextrose) 100 mls @ 200 mls/hr IVPB DAILY [facility] Last Admin: 11/17/17 09:58 Dose: 200 mls/hr Methylprednisolone Sodium Succinate (Solu-Medrol -) 40 mg IVPUSH Q6H-IV [facility] Stop: 11/19/17 03:01 Oseltamivir Phosphate (Tamiflu -) 30 mg PO BID@0600,1800 [facility] Stop: 11/20/17 05:59 Last Admin: 11/17/17 05:36 Dose: 30 mg - Objective Vital Signs: Vital Signs Temperature 98.8 F 11/17/17 11:35 Pulse Rate 80 11/17/17 11:35 Respiratory Rate 22 11/17/17 11:35 Blood Pressure 177/65 11/17/17 11:35 O2 Sat by Pulse Oximetry (%) 90 L 11/17/17 09:00 Constitutional: Yes: No Distress, Obese Cardiovascular: Yes: Regular Rate and Rhythm, S1, S2 Respiratory: Yes: Other (+ crepitations at bases) Gastrointestinal: Yes: Normal Bowel Sounds, Soft, Abdomen, Obese. No: Tenderness Labs: CBC, BMP 11/17/17 09:50 11/17/17 09:50 INR, PTT INR 1.03 (0.82-1.09) 11/14/17 12:50 Assessment/Plan Acute influenza Toxic metabolic encephalopathy- improved + BC SCN = contaminant Azotemia Thrombocytopenia Complete 5d course Tamiflu D/C ceftriaxone after today's dose
[2017-11-17] MEDS: methylPREDNISolone NA SUCC 40 MG/1 ML VIAL IVPUSH SCH ×3 (14:48→21:12)
--- NOTE | 2017-11-17 16:39 | PN ---
Progress Note (short form) - Note Progress Note: Subjective: The patient was seen and examined at the bedside, awake, alert. She states she feels good today Tmax 100.5 this AM Current Medications Generic Name Dose Route Start Last Admin Trade Name Freq PRN Reason Stop Dose Admin Acetaminophen 650 mg 11/17/17 01:24 11/17/17 01:34 Tylenol - PO 650 mg Q6H PRN Administration FEVER Albuterol Sulfate 1 amp 11/14/17 17:36 11/15/17 02:02 Ventolin 0.083% Nebulizer Soln - NEB 1 amp Q6H PRN Administration SHORT OF BREATH/WHEEZING Albuterol/Ipratropium 1 amp 11/15/17 16:00 11/17/17 16:14 Duoneb - NEB 1 amp RQID [facility] Administration Sodium Chloride 1,000 mls @ 75 mls/hr 11/15/17 08:30 11/17/17 09:59 Normal Saline - IV 75 mls/hr ASDIR [facility] Administration Ceftriaxone Sodium 2 gm/ 100 mls @ 200 mls/hr 11/15/17 14:15 11/17/17 09:58 Dextrose IVPB 200 mls/hr DAILY [facility] Administration Methylprednisolone Sodium Succinate 40 mg 11/17/17 12:45 11/17/17 14:49 Solu-Medrol - IVPUSH 11/19/17 03:01 Not Given Q6H-IV [facility] Oseltamivir Phosphate 30 mg 11/15/17 06:00 11/17/17 05:36 Tamiflu - PO 11/20/17 05:59 30 mg BID@0600,1800 [facility] Administration Objective: Vital Signs Period Temp Pulse Resp BP Sys/Childress Pulse Ox Last 24 Hr 98.8 F-100.5 F 70-90 20-22 118-177/62-77 90-96 Physical Exam: General: NAD, awake, alert Lungs: B/l rhonchi Heart: RRR, S1S2 Abd: Soft, non-distended. Normoactive bowel sounds Ext: Warm, well-perfused. No edema CBCD WBC 4.2 K/mm3 (4.0-10.0) 11/17/17 09:50 RBC 3.60 M/mm3 (3.60-5.2) 11/17/17 09:50 Hgb 11.7 GM/dL (10.7-15.3) 11/17/17 09:50 Hct 34.9 % (32.4-45.2) 11/17/17 09:50 MCV 96.9 fl (80-96) H 11/17/17 09:50 MCHC 33.4 g/dl (32.0-36.0) 11/17/17 09:50 RDW 12.5 % (11.6-15.6) 11/17/17 09:50 Plt Count 108 K/MM3 (134-434) L 11/17/17 09:50 MPV 11.0 fl (7.5-11.1) 11/17/17 09:50 CMP Sodium 140 mmol/L (136-145) 11/17/17 09:50 Potassium 3.6 mmol/L (3.5-5.1) 11/17/17 09:50 Chloride 105 mmol/L (98-107) 11/17/17 09:50 Carbon Dioxide 26 mmol/L (21-32) 11/17/17 09:50 Anion Gap 9 (8-16) 11/17/17 09:50 BUN 23 mg/dL (7-18) H 11/17/17 09:50 Creatinine 1.2 mg/dL (0.55-1.02) H 11/17/17 09:50 Creat Clearance w eGFR 42.70 (>60) 11/17/17 09:50 Random Glucose 161 mg/dL (74-106) H 11/17/17 09:50 Calcium 7.9 mg/dL (8.5-10.1) L 11/17/17 09:50 Total Bilirubin 0.2 mg/dL (0.2-1.0) D 11/17/17 09:50 AST 30 U/L (15-37) 11/17/17 09:50 ALT 15 U/L (12-78) 11/17/17 09:50 Alkaline Phosphatase 59 U/L (45-117) 11/17/17 09:50 Total Protein 6.7 g/dl (6.4-8.2) 11/17/17 09:50 Albumin 3.2 g/dl (3.4-5.0) L 11/17/17 09:50 CARDIAC ENZYMES Creatine Kinase 137 IU/L (26-192) 11/16/17 07:07 Troponin I 0.15 ng/ml (0.00-0.05) H 11/16/17 07:07 Microbiology 11/15/17 13:30 Blood - Peripheral Venous Blood Culture - Preliminary NO GROWTH OBTAINED AFTER 48 HOURS, INCUBATION TO CONTINUE FOR 3 DAYS. 11/15/17 13:30 Blood - Peripheral Venous Blood Culture - Preliminary NO GROWTH OBTAINED AFTER 48 HOURS, INCUBATION TO CONTINUE FOR 3 DAYS. 11/14/17 12:55 Blood - Peripheral Venous Blood Culture - Preliminary NO GROWTH OBTAINED AFTER 72 HOURS, INCUBATION TO CONTINUE FOR 2 DAYS. 11/14/17 12:50 Blood - Peripheral Venous Blood Culture - Preliminary Staphylococcus Coagulase Neg 11/14/17 13:00 Urine - Urine Clean Catch Urine Culture - Final NO GROWTH OBTAINED 11/14/17 12:50 Nasopharyngeal Swab Influenza Types A,B Antigen (KOBI) - Final 11/14/17 12:50 Nasopharyngeal Swab - Final Assessment: This is an 87 year old female with PMHx of arthritis, dementia, HTN , pacemaker, who presented to the ED with altered mental status. The patient was increasingly more lethargic over the past few days with a productive cough, runny nose, and decreased appetite. 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 - Stable on repeat head CT - Appreciate neurosurgery consult - Appreciate neurology consult 4) OPAL on CKD - UA with 1+ protein, indicating possible chronic kidney disease - Cr improving 5) Pacemaker - Appreciate cardiology consult 6) F/E/N: - Monitor electrolytes - Regular diet 7) Prophylaxis: - SCDs bilaterally - No chemical anticoagulation give CT head findings 8) Dispo: - Requires continued inpatient care CODE STATUS: FULL CODE Visit type - Emergency Visit Emergency Visit: Yes ED Registration Date: 11/14/17 Care time: The patient presented to the Emergency Department on the above date and was hospitalized for further evaluation of their emergent condition. - New Patient This patient is new to me today: No - Critical Care Critical Care patient: No
[2017-11-18] MEDS: methylPREDNISolone NA SUCC 40 MG/1 ML VIAL IVPUSH SCH ×4 (03:09→21:13)
[2017-11-18] MEDS: SODIUM CHLORIDE 1,000 ML IV SCH (03:10)
[2017-11-18] MEDS ORDERED: PT OWN MED DRAWER 7, Y5N ONE ×2 (05:08→16:40)
[2017-11-18] MEDS: ALBUTEROL SO4 0.083% IH SOL 2.5 MG/3 ML VIAL.NEB. NEB PRN (05:32)
[2017-11-18] MEDS: OSELTAMIVIR PHOSPHATE 30 MG CAPSULE PO SCH ×2 (05:33→17:15)
[2017-11-18] MEDS ORDERED: SODIUM CHLORIDE 1,000 ML IV SCH (06:27)
[2017-11-18] MEDS: ALBUTEROL SO4 2.5/IPRATROPIUM 0.5 INH SOL 3 ML VIAL.NEB. NEB SCH ×4 (08:10→20:30)
--- NOTE | 2017-11-18 08:28 | PN ---
Progress Note (short form) - Note Progress Note: Subjective: The patient was seen and examined at the bedside, awake, alert. Overnight she had difficulty breathing, she received a breathing treatment and her O2 saturation improved Current Medications Generic Name Dose Route Start Last Admin Trade Name Freq PRN Reason Stop Dose Admin Acetaminophen 650 mg 11/17/17 01:24 11/17/17 21:12 Tylenol - PO 650 mg Q6H PRN Administration FEVER Albuterol Sulfate 1 amp 11/14/17 17:36 11/18/17 05:32 Ventolin 0.083% Nebulizer Soln - NEB 1 amp Q6H PRN Administration SHORT OF BREATH/WHEEZING Albuterol/Ipratropium 1 amp 11/15/17 16:00 11/17/17 21:00 Duoneb - NEB 1 amp RQID [facility] Administration Furosemide 40 mg 11/18/17 08:25 Lasix Injection - IVPUSH 11/18/17 08:26 ONCE ONE Methylprednisolone Sodium Succinate 40 mg 11/17/17 21:00 11/18/17 03:09 Solu-Medrol - IVPUSH 11/19/17 09:01 40 mg Q6H-IV [facility] Administration Oseltamivir Phosphate 30 mg 11/15/17 06:00 11/18/17 05:33 Tamiflu - PO 11/20/17 05:59 30 mg BID@0600,1800 [facility] Administration Objective: Vital Signs Period Temp Pulse Resp BP Sys/Childress Pulse Ox Last 24 Hr 98.2 F-99.3 F 73-96 18-22 134-180/65-99 90-90 Physical Exam: General: NAD, awake, alert Lungs: B/l rhonchi, end expiratory wheezing Heart: RRR, S1S2 Abd: Soft, non-distended. Normoactive bowel sounds Ext: Warm, well-perfused. No edema CBCD WBC 4.2 K/mm3 (4.0-10.0) 11/17/17 09:50 RBC 3.60 M/mm3 (3.60-5.2) 11/17/17 09:50 Hgb 11.7 GM/dL (10.7-15.3) 11/17/17 09:50 Hct 34.9 % (32.4-45.2) 11/17/17 09:50 MCV 96.9 fl (80-96) H 11/17/17 09:50 MCHC 33.4 g/dl (32.0-36.0) 11/17/17 09:50 RDW 12.5 % (11.6-15.6) 11/17/17 09:50 Plt Count 108 K/MM3 (134-434) L 11/17/17 09:50 MPV 11.0 fl (7.5-11.1) 11/17/17 09:50 CMP Sodium 140 mmol/L (136-145) 11/17/17 09:50 Potassium 3.6 mmol/L (3.5-5.1) 11/17/17 09:50 Chloride 105 mmol/L (98-107) 11/17/17 09:50 Carbon Dioxide 26 mmol/L (21-32) 11/17/17 09:50 Anion Gap 9 (8-16) 11/17/17 09:50 BUN 23 mg/dL (7-18) H 11/17/17 09:50 Creatinine 1.2 mg/dL (0.55-1.02) H 11/17/17 09:50 Creat Clearance w eGFR 42.70 (>60) 11/17/17 09:50 Random Glucose 161 mg/dL (74-106) H 11/17/17 09:50 Calcium 7.9 mg/dL (8.5-10.1) L 11/17/17 09:50 Total Bilirubin 0.2 mg/dL (0.2-1.0) D 11/17/17 09:50 AST 30 U/L (15-37) 11/17/17 09:50 ALT 15 U/L (12-78) 11/17/17 09:50 Alkaline Phosphatase 59 U/L (45-117) 11/17/17 09:50 Total Protein 6.7 g/dl (6.4-8.2) 11/17/17 09:50 Albumin 3.2 g/dl (3.4-5.0) L 11/17/17 09:50 CARDIAC ENZYMES Creatine Kinase 137 IU/L (26-192) 11/16/17 07:07 Troponin I 0.15 ng/ml (0.00-0.05) H 11/16/17 07:07 Microbiology 11/15/17 13:30 Blood - Peripheral Venous Blood Culture - Preliminary NO GROWTH OBTAINED AFTER 48 HOURS, INCUBATION TO CONTINUE FOR 3 DAYS. 11/15/17 13:30 Blood - Peripheral Venous Blood Culture - Preliminary NO GROWTH OBTAINED AFTER 48 HOURS, INCUBATION TO CONTINUE FOR 3 DAYS. 11/14/17 12:55 Blood - Peripheral Venous Blood Culture - Preliminary NO GROWTH OBTAINED AFTER 72 HOURS, INCUBATION TO CONTINUE FOR 2 DAYS. 11/14/17 12:50 Blood - Peripheral Venous Blood Culture - Preliminary Staphylococcus Coagulase Neg 11/14/17 13:00 Urine - Urine Clean Catch Urine Culture - Final NO GROWTH OBTAINED 11/14/17 12:50 Nasopharyngeal Swab Influenza Types A,B Antigen (KOBI) - Final 11/14/17 12:50 Nasopharyngeal Swab - Final Assessment: This is an 87 year old female with PMHx of arthritis, dementia, HTN , pacemaker, who presented to the ED with altered mental status. The patient was increasingly more lethargic over the past few days with a productive cough, runny nose, and decreased appetite. Plan: 1) Acute metabolic encephalopathy 2/2 influenza, Acute hypoxic respiratory failure 2/2 Influenza A - Resolving, patient awake and alert today - Isolation precautions - Tamiflu 30mg po bid (crcl 36) - Duonebs, albuterol nebs - Continue Solu-medrol - Will give Lasix 40mg once, patient takes 20mg po at home daily. Some rhonchi on exam. 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 - Stable on repeat head CT - Appreciate neurosurgery consult - Appreciate neurology consult 4) OPAL on CKD - UA with 1+ protein, indicating possible chronic kidney disease - Cr improving 5) Pacemaker - Appreciate cardiology consult 6) F/E/N: - Monitor electrolytes - Regular diet 7) Prophylaxis: - SCDs bilaterally - No chemical anticoagulation give CT head findings 8) Dispo: - Requires continued inpatient care CODE STATUS: FULL CODE Visit type - Emergency Visit Emergency Visit: Yes ED Registration Date: 11/14/17 Care time: The patient presented to the Emergency Department on the above date and was hospitalized for further evaluation of their emergent condition. - New Patient This patient is new to me today: No - Critical Care Critical Care patient: No
[2017-11-18] MEDS ORDERED: FUROSEMIDE 40 MG/4 ML INJECTABLE VIAL IVPUSH ONE (09:00)
--- NOTE | 2017-11-18 09:55 | PN ---
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
[2017-11-18 13:43] LABS: URINE APPEARANCE CLEAR; URINE BILIRUBIN NEGATIVE (<2.0 mg/dL); URINE BLOOD NEGATIVE (NEGATIVE); URINE COLOR STRAW; URINE GLUCOSE (UA) NEGATIVE (NEGATIVE); URINE KETONE NEGATIVE (NEGATIVE); URINE LEUK ESTERASE NEGATIVE (NEGATIVE); URINE NITRITE NEGATIVE (NEGATIVE); URINE PROTEIN NEGATIVE (NEGATIVE); URINE UROBILINOGEN NEGATIVE mg/dL (0.2-1.0)
--- NOTE | 2017-11-18 15:36 | PN ---
Progress Note (short form) - Note Progress Note: PULMONARY Per daughter at bedside, breathing is better. No chest pain. No fevers or chills. Last Vital Signs Temp Pulse Resp BP Pulse Ox 98.4 F 93 H 20 174/88 92 L 11/18/17 08:33 11/18/17 08:33 11/18/17 08:33 11/18/17 08:33 11/18/17 08:35 Gen: NAD at rest Heart: RRR Lung: less rhonchi Abd: soft, nontender Ext: no edema CBC, BMP 11/17/17 09:50 11/17/17 09:50 Active Medications Acetaminophen (Tylenol -) 650 mg PO Q6H PRN PRN Reason: FEVER Last Admin: 11/17/17 21:12 Dose: 650 mg Albuterol Sulfate (Ventolin 0.083% Nebulizer Soln -) 1 amp NEB Q6H PRN PRN Reason: SHORT OF BREATH/WHEEZING Last Admin: 11/18/17 05:32 Dose: 1 amp Albuterol/Ipratropium (Duoneb -) 1 amp NEB RQID RAZ Last Admin: 11/18/17 12:00 Dose: 1 amp Methylprednisolone Sodium Succinate (Solu-Medrol -) 40 mg IVPUSH Q6H-IV RAZ Stop: 11/19/17 09:01 Last Admin: 11/18/17 15:10 Dose: 40 mg Oseltamivir Phosphate (Tamiflu -) 30 mg PO BID@0600,1800 RAZ Stop: 11/20/17 05:59 Last Admin: 11/18/17 05:33 Dose: 30 mg A/P Altered Mental Status Influenza A Sepsis Acute Kidney Injury +Troponins likely Demand Ischemia s/p PPM - tamiflu - inhaled bronchodilators standing and PRN - will decrease medrol - O2 to keep SpO2 >90% - monitor urine output, creatinine - DVT prophylaxis Problem List - Problems (1) Influenza A Code(s): J10.1 - FLU DUE TO OTH IDENT INFLUENZA VIRUS W OTH RESP MANIFEST (2) Altered mental status Code(s): R41.82 - ALTERED MENTAL STATUS, UNSPECIFIED (3) Hypoxia Code(s): R09.02 - HYPOXEMIA (4) Sepsis Code(s): A41.9 - SEPSIS, UNSPECIFIED ORGANISM (5) Acute kidney injury Code(s): N17.9 - ACUTE KIDNEY FAILURE, UNSPECIFIED (6) Demand ischemia Code(s): I24.8 - OTHER FORMS OF ACUTE ISCHEMIC HEART DISEASE
[2017-11-19] MEDS: methylPREDNISolone NA SUCC 40 MG/1 ML VIAL IVPUSH SCH ×2 (02:06→10:40)
[2017-11-19] MEDS ORDERED: PT OWN MED DRAWER 7, Y5N ONE (05:04)
[2017-11-19] MEDS: OSELTAMIVIR PHOSPHATE 30 MG CAPSULE PO SCH ×2 (05:21→17:25)
[2017-11-19 08:10] LABS: ANION GAP 5 (8-16); BLOOD UREA NITROGEN 29 mg/dL (7-18); CALCIUM 8.1 mg/dL (8.5-10.1); CHLORIDE 108 mmol/L (98-107); CO2 27 mmol/L (21-32); GLUCOSE,RANDOM 233 mg/dL (74-106); POTASSIUM 4.6 mmol/L (3.5-5.1); SODIUM 140 mmol/L (136-145)
[2017-11-19 08:11] LABS: CREATININE 1.1 mg/dL (0.55-1.02)
[2017-11-19] MEDS: ALBUTEROL SO4 2.5/IPRATROPIUM 0.5 INH SOL 3 ML VIAL.NEB. NEB SCH ×4 (08:15→20:00)
--- NOTE | 2017-11-19 08:35 | PN ---
Teaching Attending Note Name of Resident: Li Mera SUBJECTIVE: Patient seen and examined. Breathing continues to improve, no new complaints. OBJECTIVE: Vital Signs Period Temp Pulse Resp BP Sys/Childress Pulse Ox Last 24 Hr 98.2 F-99.6 F 86-95 18-20 150-174/66-99 92-92 Intake & Output 11/16/17 11/17/17 11/18/17 11/19/17 23:59 23:59 23:59 23:59 Intake Total 2150 2230 840 Output Total 450 Balance 1700 2230 840 Weight 173 lb 12.8 oz General sitting in chair in no acute distress Chest good air entry, occasional scattered wheezing Abdomen soft, obese, NT, ND CVS S1S2 regular Extremities no edema Home Medication List Medication Instructions Recorded Confirmed Type Aspirin [ASA -] 81 mg PO DAILY 11/14/17 11/14/17 History Furosemide [Lasix] 20 mg PO DAILY 11/14/17 11/14/17 History Active Medications Generic Name Dose Route Start Last Admin Trade Name Freq PRN Reason Stop Dose Admin Acetaminophen 650 mg 11/17/17 01:24 11/17/17 21:12 Tylenol - PO 650 mg Q6H PRN Administration FEVER Albuterol Sulfate 1 amp 11/14/17 17:36 11/18/17 05:32 Ventolin 0.083% Nebulizer Soln - NEB 1 amp Q6H PRN Administration SHORT OF BREATH/WHEEZING Albuterol/Ipratropium 1 amp 11/15/17 16:00 11/18/17 20:30 Duoneb - NEB 1 amp RQID RAZ Administration Methylprednisolone Sodium Succinate 40 mg 11/17/17 21:00 11/19/17 02:06 Solu-Medrol - IVPUSH 11/19/17 09:01 40 mg Q6H-IV RAZ Administration Oseltamivir Phosphate 30 mg 11/15/17 06:00 11/19/17 05:21 Tamiflu - PO 11/20/17 05:59 30 mg BID@0600,1800 RAZ Administration Microbiology 11/15/17 13:30 Blood - Peripheral Venous Blood Culture - Preliminary NO GROWTH OBTAINED AFTER 72 HOURS, INCUBATION TO CONTINUE FOR 2 DAYS. 11/15/17 13:30 Blood - Peripheral Venous Blood Culture - Preliminary NO GROWTH OBTAINED AFTER 72 HOURS, INCUBATION TO CONTINUE FOR 2 DAYS. 11/14/17 12:55 Blood - Peripheral Venous Blood Culture - Preliminary NO GROWTH OBTAINED AFTER 96 HOURS, INCUBATION TO CONTINUE FOR 1 DAYS. 11/14/17 12:50 Blood - Peripheral Venous Blood Culture - Preliminary Staphylococcus Auricularis 11/14/17 13:00 Urine - Urine Clean Catch Urine Culture - Final NO GROWTH OBTAINED 11/14/17 12:50 Nasopharyngeal Swab Influenza Types A,B Antigen (KOBI) - Final 11/14/17 12:50 Nasopharyngeal Swab - Final CT chest results reviewed 2D echo reivewed CT brain x 2 reviewed ASSESSMENT AND PLAN: 87 yof with PMhx of dementia, arthritis, s/p PPM, ?Cardiac history (moderate to severe MR, ?CAD, ?) admitted with AMS, acute influenza A illness -AMS, suspect toxic metabolic encephalopathy from influenza A illness/OPAL, ? 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 -Moderate to severe MR -?Moderate to severe Aortic stenosis. -Dementia -Arthritis Plan: Tamiflu day 4/, nebs, taper solumedrol. CT Chest and pulmonary input noted. Nebs. Off ceftriaxone, repeat blood cx neg, ID input noted, monitor for now. s/p lasix 11/18, monitor clinically, strict I/Os, daily, avoid severe volume depletion given concerns for moderate to severe . Troponin trended down, 2D echo noted, cardiology input appreciated. Monitor neurological status. Neurology/Neurosurgery input appreciated. renal function improved. DVTPPX with SCDs, no heparin given concerns of cerebral bleed on admission, low suspicion, address with neurosurgery if heparin ok. Dispo PT eval noted. Await re-eval for dispo planning in 24 hours. Pre and post ambulatory oxygen saturations. Plan discussed with patient and daughter at bedside in detail, all questions answered.
--- NOTE | 2017-11-19 09:48 | PN ---
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
--- NOTE | 2017-11-19 13:34 | PN ---
Progress Note (short form) - Note Progress Note: PULMONARY Per daughter at bedside, breathing is better. Nonproductive cough. No chest pain. No fevers or chills. Last Vital Signs Temp Pulse Resp BP Pulse Ox 98.5 F 90 19 176/88 92 L 11/19/17 09:30 11/19/17 09:30 11/19/17 09:30 11/19/17 09:30 11/19/17 09:30 Gen: NAD at rest Heart: RRR Lung: less rhonchi Abd: soft, nontender Ext: no edema CBC, BMP 11/17/17 09:50 11/19/17 06:00 Active Medications Acetaminophen (Tylenol -) 650 mg PO Q6H PRN PRN Reason: FEVER Last Admin: 11/17/17 21:12 Dose: 650 mg Albuterol Sulfate (Ventolin 0.083% Nebulizer Soln -) 1 amp NEB Q6H PRN PRN Reason: SHORT OF BREATH/WHEEZING Last Admin: 11/18/17 05:32 Dose: 1 amp Albuterol/Ipratropium (Duoneb -) 1 amp NEB RQID RAZ Last Admin: 11/19/17 08:15 Dose: 1 amp Oseltamivir Phosphate (Tamiflu -) 30 mg PO BID@0600,1800 [facility] Stop: 11/20/17 05:59 Last Admin: 11/19/17 05:21 Dose: 30 mg A/P Altered Mental Status Influenza A Sepsis Acute Kidney Injury +Troponins likely Demand Ischemia s/p PPM - tamiflu x 5 days total - inhaled bronchodilators standing and PRN - O2 to keep SpO2 >90% - monitor urine output, creatinine - DVT prophylaxis Problem List - Problems (1) Influenza A Code(s): J10.1 - FLU DUE TO OTH IDENT INFLUENZA VIRUS W OTH RESP MANIFEST (2) Altered mental status Code(s): R41.82 - ALTERED MENTAL STATUS, UNSPECIFIED (3) Hypoxia Code(s): R09.02 - HYPOXEMIA (4) Sepsis Code(s): A41.9 - SEPSIS, UNSPECIFIED ORGANISM (5) Acute kidney injury Code(s): N17.9 - ACUTE KIDNEY FAILURE, UNSPECIFIED (6) Demand ischemia Code(s): I24.8 - OTHER FORMS OF ACUTE ISCHEMIC HEART DISEASE
--- NOTE | 2017-11-19 20:06 | HOSP ---
Subjective - Review of Symptoms Events since last encounter: Hospitalist Encounter Notified by the RN that the patient desat 85% while ambulating, now reports chest pain near PM. Assessment 87 yof with PMhx of dementia, arthritis, s/p PPM, ?Cardiac history (moderate to severe MR, ?CAD, ?) admitted with AMS, acute influenza A illness Plan EKG-stat Trop I- stat Subjective: Arrived to bedside, patient is Alert, Awake and Oriented, Turkish speaking daughter was at bedside who translated. Patient reports having a pinching like pain to her RCW near her PM. Her daughter reports the patient gets NESS. Patient denies CP and reports that her breathing has improved after receiving the Neb treatment. See PE. Pulmonary: Yes: Dyspnea Cardiovascular: Yes: Chest Pain Physical Examination Vital Signs: Vital Signs Temperature 99.2 F 11/19/17 17:40 Pulse Rate 92 H 11/19/17 17:40 Respiratory Rate 20 11/19/17 17:40 Blood Pressure 153/75 11/19/17 17:40 O2 Sat by Pulse Oximetry (%) 92 L 11/19/17 09:30 Constitutional: Yes: Well Nourished, No Distress, Calm, Obese Eyes: Yes: WNL, Conjunctiva Clear, PERRL HENT: Yes: WNL, Atraumatic, Normocephalic Neck: Yes: WNL, Supple, Trachea Midline Cardiovascular: Yes: WNL, Regular Rate and Rhythm, S1, S2 Respiratory: Yes: Diminished (bases), On Nasal O2, Rhonchi Gastrointestinal: Yes: WNL, Normal Bowel Sounds, Soft, Abdomen, Obese Extremities: Yes: WNL Edema: Yes Edema: LLE: Trace, RLE: Trace Peripheral Pulses WNL: Yes Neurological: Yes: WNL, Alert, Oriented ...Motor Strength: WNL Psychiatric: Yes: WNL, Alert, Oriented Labs: CBC, BMP 11/17/17 09:50 11/19/17 06:00 Current Medications Generic Name Dose Route Start Last Admin Trade Name Freq PRN Reason Stop Dose Admin Acetaminophen 650 mg 11/17/17 01:24 11/17/17 21:12 Tylenol - PO 650 mg Q6H PRN Administration FEVER Albuterol Sulfate 1 amp 11/14/17 17:36 11/18/17 05:32 Ventolin 0.083% Nebulizer Soln - NEB 1 amp Q6H PRN Administration SHORT OF BREATH/WHEEZING Albuterol/Ipratropium 1 amp 11/15/17 16:00 11/19/17 15:51 Duoneb - NEB 1 amp RQID RAZ Administration Oseltamivir Phosphate 30 mg 11/15/17 06:00 11/19/17 17:25 Tamiflu - PO 11/20/17 05:59 30 mg BID@0600,1800 RAZ Administration Intake & Output 11/16/17 11/17/17 11/18/17 11/19/17 23:59 23:59 23:59 23:59 Intake Total 2150 2230 840 Output Total 450 Balance 1700 2230 840 Weight 78.834 kg Microbiology 11/15/17 13:30 Blood Culture - Preliminary Blood - Peripheral Venous NO GROWTH OBTAINED AFTER 96 HOURS, INCUBATION TO CONTINUE FOR 1 DAYS. 11/15/17 13:30 Blood Culture - Preliminary Blood - Peripheral Venous NO GROWTH OBTAINED AFTER 96 HOURS, INCUBATION TO CONTINUE FOR 1 DAYS. 11/14/17 12:55 Blood Culture - Final Blood - Peripheral Venous NO GROWTH AFTER 5 DAYS INCUBATION Hospitalist Encounter Outcome: EKG- no change compared to prior study Trop I - neg Patient resting comfortably at bedside
[2017-11-20 07:10] LABS: HEMATOCRIT 34.1 % (32.4-45.2); HEMOGLOBIN 11.6 GM/dL (10.7-15.3); LYMPH % 9.2 % (8-40); MCH 32.7 pg (25.7-33.7); MCHC 34.2 g/dl (32.0-36.0); MEAN CELL VOLUME 95.8 fl (80-96); MEAN PLT VOLUME 11.6 fl (7.5-11.1); MONO % 8.6 % (3.8-10.2); NEUT % 82.2 % (42.8-82.8); PLATELET COUNT 140 K/MM3 (134-434); RBC 3.56 M/mm3 (3.60-5.2); RDW 12.4 % (11.6-15.6); WHITE BLOOD COUNT 6.4 K/mm3 (4.0-10.0)
[2017-11-20] MEDS: ALBUTEROL SO4 2.5/IPRATROPIUM 0.5 INH SOL 3 ML VIAL.NEB. NEB SCH ×2 (08:46→13:05)
[2017-11-20 08:54] LABS: ANION GAP 8 (8-16); BLOOD UREA NITROGEN 29 mg/dL (7-18); CALCIUM 8.4 mg/dL (8.5-10.1); CHLORIDE 105 mmol/L (98-107); CO2 27 mmol/L (21-32); GLUCOSE,RANDOM 170 mg/dL (74-106); PHOSPHOROUS 1.9 mg/dL (2.5-4.9); POTASSIUM 4.2 mmol/L (3.5-5.1); SODIUM 140 mmol/L (136-145)
--- NOTE | 2017-11-20 11:13 | PN ---
Physical Exam: SUBJECTIVE: Patient seen and examined OBJECTIVE: Vital Signs Period Temp Pulse Resp BP Sys/Childress Pulse Ox Last 24 Hr 98.6 F-99.2 F 90-109 19-28 139-172/75-110 85-98 GENERAL: The patient is awake, alert, and fully oriented, in no acute distress. HEAD: Normal with no signs of trauma. EYES: PERRL, extraocular movements intact, sclera anicteric, conjunctiva clear. No ptosis. ENT: Ears normal, nares patent, oropharynx clear without exudates, moist mucous membranes. NECK: Trachea midline, full range of motion, supple. LUNGS: Breath sounds equal, clear to auscultation bilaterally, no wheezes, no crackles, no accessory muscle use. HEART: Regular rate and rhythm, S1, S2 without murmur, rub or gallop. ABDOMEN: Soft, nontender, nondistended, normoactive bowel sounds, no guarding, no rebound, no hepatosplenomegaly, no masses. EXTREMITIES: 2+ pulses, warm, well-perfused, no edema. NEUROLOGICAL: Cranial nerves II through XII grossly intact. Normal speech, gait not observed. PSYCH: Normal mood, normal affect. SKIN: Warm, dry, normal turgor, no rashes or lesions noted Laboratory Results - last 24 hr 11/19/17 11/20/17 11/20/17 20:00 06:42 06:42 WBC 6.4 D RBC 3.56 L Hgb 11.6 Hct 34.1 MCV 95.8 MCH 32.7 MCHC 34.2 RDW 12.4 Plt Count 140 D MPV 11.6 H Neutrophils % 82.2 D Lymphocytes % 9.2 D Monocytes % 8.6 Eosinophils % 0.0 D Basophils % 0.0 Sodium 140 Potassium 4.2 Chloride 105 Carbon Dioxide 27 Anion Gap 8 BUN 29 H Creatinine 1.0 Random Glucose 170 H Calcium 8.4 L Phosphorus 1.9 L Magnesium 2.0 Troponin I 0.06 H Active Medications Generic Name Dose Route Start Last Admin Trade Name Freq PRN Reason Stop Dose Admin Acetaminophen 650 mg 11/17/17 01:24 11/17/17 21:12 Tylenol - PO 650 mg Q6H PRN Administration FEVER Albuterol Sulfate 1 amp 11/14/17 17:36 11/18/17 05:32 Ventolin 0.083% Nebulizer Soln - NEB 1 amp Q6H PRN Administration SHORT OF BREATH/WHEEZING Albuterol/Ipratropium 1 amp 11/15/17 16:00 11/19/17 20:00 Duoneb - NEB 1 amp RQID RAZ Administration Aspirin 81 mg 11/20/17 11:15 Asa - PO DAILY RAZ Furosemide 20 mg 11/20/17 11:15 Lasix - PO DAILY RZA ASSESSMENT/PLAN:
--- NOTE | 2017-11-20 11:34 | EKG ---
Test Reason : Blood Pressure : / mmHG Vent. Rate : 091 BPM Atrial Rate : 091 BPM P-R Int : 170 ms QRS Dur : 168 ms QT Int : 454 ms P-R-T Axes : 067 -62 097 degrees QTc Int : 558 ms Atrial-sensed ventricular-paced rhythm ABNORMAL ECG WHEN COMPARED WITH ECG OF 14-NOV-2017 12:29, VENT. RATE HAS INCREASED BY 7 BPM Confirmed by MANUEL HENDRICKSON, CHRISTOPHER ([id number]) on 11/20/2017 11:33:32 AM Referred By: Confirmed By:CHRISTOPHER JACKSON MD
--- NOTE | 2017-11-20 11:56 | PN ---
Progress Note, Physician History of Present Illness: pulmonary alert,feeling better,less dyspneic,less cough - Current Medication List Current Medications: Active Medications Acetaminophen (Tylenol -) 650 mg PO Q6H PRN PRN Reason: FEVER Last Admin: 11/17/17 21:12 Dose: 650 mg Albuterol Sulfate (Ventolin 0.083% Nebulizer Soln -) 1 amp NEB Q6H PRN PRN Reason: SHORT OF BREATH/WHEEZING Last Admin: 11/18/17 05:32 Dose: 1 amp Albuterol/Ipratropium (Duoneb -) 1 amp NEB RQID RAZ Last Admin: 11/19/17 20:00 Dose: 1 amp Aspirin (Asa -) 81 mg PO DAILY RAZ Furosemide (Lasix -) 20 mg PO DAILY RAZ Metoprolol Tartrate (Lopressor -) 12.5 mg PO BID ARZ - Objective Vital Signs: Vital Signs Temperature 98.9 F 11/20/17 10:59 Pulse Rate 90 11/20/17 10:59 Respiratory Rate 20 11/20/17 10:59 Blood Pressure 145/110 11/20/17 10:59 O2 Sat by Pulse Oximetry (%) 97 11/20/17 09:00 Constitutional: Yes: Well Nourished, Calm Eyes: Yes: WNL HENT: Yes: WNL Neck: Yes: WNL Cardiovascular: Yes: Regular Rate and Rhythm, S1, S2 Respiratory: Yes: Wheezes (few wheezes) Gastrointestinal: Yes: Normal Bowel Sounds, Soft Extremities: Yes: WNL Edema: Yes Labs: CBC, BMP 11/20/17 06:42 11/20/17 06:42 INR, PTT INR 1.03 (0.82-1.09) 11/14/17 12:50 Assessment/Plan A/P Altered Mental Status improved Influenza A s/p tamiflu r/o Bacteremia Sepsis Acute Kidney Injury +Troponins likely Demand Ischemia s/p PPM - inhaled bronchodilators standing and PRN - O2 to keep SpO2 >90% - monitor urine output, creatinine - DVT prophylaxis Problem List - Problems (1) Influenza A Code(s): J10.1 - FLU DUE TO OTH IDENT INFLUENZA VIRUS W OTH RESP MANIFEST (2) Altered mental status Code(s): R41.82 - ALTERED MENTAL STATUS, UNSPECIFIED (3) Hypoxia Code(s): R09.02 - HYPOXEMIA (4) Sepsis Code(s): A41.9 - SEPSIS, UNSPECIFIED ORGANISM (5) Acute kidney injury Code(s): N17.9 - ACUTE KIDNEY FAILURE, UNSPECIFIED (6) Demand ischemia Code(s): I24.8 - OTHER FORMS OF ACUTE ISCHEMIC HEART DISEASE
[2017-11-20] MEDS: FUROSEMIDE 20 MG TABLET (FP) PO SCH (11:57)
[2017-11-20] MEDS: ASPIRIN 81 MG CHEWABLE TABLETS PO SCH (11:57)
[2017-11-20] MEDS: METOPROLOL TARTRATE 25 MG TABLET (FP) PO SCH ×2 (11:57→21:51)
--- NOTE | 2017-11-20 13:55 | DS ---
Physical Exam: SUBJECTIVE: Patient seen and examined OBJECTIVE: Vital Signs Period Temp Pulse Resp BP Sys/Childress Pulse Ox Last 24 Hr 98.6 F-99.2 F 90-109 19-28 139-172/75-110 85-98 PHYSICAL EXAM GENERAL: The patient is awake, alert, and fully oriented, in no acute distress. HEAD: Normal with no signs of trauma. EYES: PERRL, extraocular movements intact, sclera anicteric, conjunctiva clear. ENT: Ears normal, nares patent, oropharynx clear without exudates, moist mucous membranes. NECK: Trachea midline, full range of motion, supple. LUNGS: Breath sounds equal, clear to auscultation bilaterally, no wheezes, no crackles, no accessory muscle use. HEART: Regular rate and rhythm, S1, S2 without murmur, rub or gallop. ABDOMEN: Soft, nontender, nondistended, normoactive bowel sounds, no guarding, no rebound, no hepatosplenomegaly, no masses. EXTREMITIES: 2+ pulses, warm, well-perfused, no edema. NEUROLOGICAL: Cranial nerves II through XII grossly intact. Normal speech, gait not observed. PSYCH: Normal mood, normal affect. SKIN: Warm, dry, normal turgor, no rashes or lesions noted. LABS Laboratory Results - last 24 hr 11/19/17 11/20/17 11/20/17 20:00 06:42 06:42 WBC 6.4 D RBC 3.56 L Hgb 11.6 Hct 34.1 MCV 95.8 MCH 32.7 MCHC 34.2 RDW 12.4 Plt Count 140 D MPV 11.6 H Neutrophils % 82.2 D Lymphocytes % 9.2 D Monocytes % 8.6 Eosinophils % 0.0 D Basophils % 0.0 Sodium 140 Potassium 4.2 Chloride 105 Carbon Dioxide 27 Anion Gap 8 BUN 29 H Creatinine 1.0 Random Glucose 170 H Calcium 8.4 L Phosphorus 1.9 L Magnesium 2.0 Troponin I 0.06 H HOSPITAL COURSE: Date of Admission:11/14/17 Date of Discharge: 11/20/17 Minutes to complete discharge: 35 Discharge Summary Reason For Visit: HYPOXIA; AMS; INFLUENZA DUE TO INFLUENZA VIRUS Current Active Problems Acute kidney injury (Acute) Altered mental status (Acute) Demand ischemia (Acute) Hypoxia (Acute) Influenza A (Acute) Sepsis (Acute) Condition: Stable - Instructions Referrals: Kev Justice MD [Primary Care Provider] - - Home Medications Comprehensive Discharge Medication List: Ambulatory Orders Aspirin [ASA -] 81 mg PO DAILY 11/14/17 Furosemide [Lasix] 20 mg PO DAILY 11/14/17 This patient is new to me today: Yes Date on this admission: 11/20/17 Emergency Visit: Yes ED Registration Date: 11/14/17 Care time: The patient presented to the Emergency Department on the above date and was hospitalized for further evaluation of their emergent condition. Critical Care patient: No - Discharge Referral Referred to [facility] No
[2017-11-21] MEDS ORDERED: METOPROLOL TARTRATE 25 MG TABLET (FP) PO SCH (07:29)
[2017-11-21] MEDS: FUROSEMIDE 20 MG TABLET (FP) PO SCH (09:16)
[2017-11-21] MEDS: ASPIRIN 81 MG CHEWABLE TABLETS PO SCH (09:16)
[2017-11-21 10:25] VITALS: PULSE 87
[2017-11-21] MEDS: ACETAMINOPHEN 325 MG TABLET (FP) PO PRN (10:55)
--- NOTE | 2017-11-21 12:23 | PN ---
Progress Note (short form) - Note Progress Note: PULMONARY Per daughter at bedside, breathing is better. Nonproductive cough. No chest pain. No fevers or chills. No BM x 4 days. Last Vital Signs Temp Pulse Resp BP Pulse Ox 99.3 F 87 20 140/90 95 11/21/17 09:00 11/21/17 09:00 11/21/17 09:00 11/21/17 09:00 11/21/17 09:00 Gen: NAD at rest Heart: RRR Lung: less rhonchi Abd: soft, nontender Ext: no edema CBC, BMP 11/20/17 06:42 11/20/17 06:42 Active Medications Acetaminophen (Tylenol -) 650 mg PO Q6H PRN PRN Reason: FEVER Last Admin: 11/21/17 10:55 Dose: 650 mg Albuterol Sulfate (Ventolin 0.083% Nebulizer Soln -) 1 amp NEB Q6H PRN PRN Reason: SHORT OF BREATH/WHEEZING Last Admin: 11/18/17 05:32 Dose: 1 amp Aspirin (Asa -) 81 mg PO DAILY [facility] Last Admin: 11/21/17 09:16 Dose: 81 mg Furosemide (Lasix -) 20 mg PO DAILY [facility] Last Admin: 11/21/17 09:16 Dose: 20 mg Metoprolol Tartrate (Lopressor -) 25 mg PO BID [facility] Last Admin: 11/21/17 09:16 Dose: 25 mg A/P Altered Mental Status improved Influenza A Sepsis Acute Kidney Injury +Troponins likely Demand Ischemia s/p PPM - s/p tamiflu - inhaled bronchodilators standing and PRN - O2 to keep SpO2 >90%, will need home O2 - monitor urine output, creatinine - DVT prophylaxis Problem List - Problems (1) Influenza A Code(s): J10.1 - FLU DUE TO OTH IDENT INFLUENZA VIRUS W OTH RESP MANIFEST (2) Altered mental status Code(s): R41.82 - ALTERED MENTAL STATUS, UNSPECIFIED (3) Hypoxia Code(s): R09.02 - HYPOXEMIA (4) Sepsis Code(s): A41.9 - SEPSIS, UNSPECIFIED ORGANISM (5) Acute kidney injury Code(s): N17.9 - ACUTE KIDNEY FAILURE, UNSPECIFIED (6) Demand ischemia Code(s): I24.8 - OTHER FORMS OF ACUTE ISCHEMIC HEART DISEASE
[2017-11-21 13:33] VITALS: BP 156/84; TEMP 98.9
== END 2017-11-21 16:06 | disposition home or self-care (01) | DRG 193 ==
LOC: JER 11:50 → JERBED 16:21 → J4S 11-15 15:57
PROVIDERS: ADMIT Hospitalist; ATTEND Nurse Practitioner Acute Care
DX: J10.1 Influenza due to other identified influenza virus with other respiratory manifestations (principal); J96.01 Acute respiratory failure with hypoxia; I21.A1 Myocardial infarction type 2; N17.9 Acute kidney failure, unspecified; R41.82 Altered mental status, unspecified; F32.9 Major depressive disorder, single episode, unspecified; E78.00 Pure hypercholesterolemia, unspecified; J10.81 Influenza due to other identified influenza virus with encephalopathy; I12.9 Hypertensive chronic kidney disease with stage 1 through stage 4 chronic kidney disease, or unspecified chronic kidney disease; N18.9 Chronic kidney disease, unspecified; R32 Unspecified urinary incontinence; F03.90 Unspecified dementia, unspecified severity, without behavioral disturbance, psychotic disturbance, mood disturbance, and anxiety; M19.90 Unspecified osteoarthritis, unspecified site; D69.6 Thrombocytopenia, unspecified; D18.02 Hemangioma of intracranial structures; I34.0 Nonrheumatic mitral (valve) insufficiency; Z95.0 Presence of cardiac pacemaker
CPT/HCPCS: 36415; 70450-TC; 71045-TC-FY; 71250-TC; 80048; 80053; 80061; 81003; 81015; 82550; 82803; 82962; 83605; 83721; 83735; 83880; 84100; 84484; 85025; 85027; 85610; 85730; 87040; 87086; 87186; 87804; 93005; 93010; 93306-TC; 94640; 94761; 97116-GP; 97161-GP; 99285-25; J0131; J7030

== ENCOUNTER 2018-01-20 18:42 | Inpatient (IN) | payer MEDICARE, OTHER ==
[2018-01-20] MEDS ORDERED: ACETAMINOPHEN 1000 MG/100 ML VIAL (NON FORMULARY) IVPB ONE (22:53)
[2018-01-20] MEDS ORDERED: SODIUM CHLORIDE 0.9% 500 ML INFUS.BAG IV ONE (22:53)
--- NOTE | 2018-01-20 22:58 | PDOC ---
History of Present Illness - General Chief Complaint: Pain Stated Complaint: PAIN, ACUTE Time Seen by Provider: 01/20/18 22:24 History Source: Family Exam Limitations: No Limitations - History of Present Illness Initial Comments: 01/20/18 22:57 Patient is a 87 year old female h/o HTN, HLD, WI, C/S, pacemaker brought by daughter for c/o "wining" 3 days as if in pain. Per daughter has decreased appetite, today did not eat and when pressed on the abd she grunts in pain, vomited x 1 and when she tried to force feed she gags. Denies fever, chills, cough, sob, chest pain. Daughter states patient is not her usual self. PMD: [place] PMHX: as above PSOCHX; lives with daughter ALL: NKDA GENERAL/CONSTITUTIONAL: [No fever or chills. No weakness. No weight change.] HEAD, EYES, EARS, NOSE AND THROAT: [No change in vision. No ear pain or discharge. No sore throat.] CARDIOVASCULAR: [No chest pain or shortness of breath.] RESPIRATORY: [No cough, wheezing, or hemoptysis.] GASTROINTESTINAL: (+) nausea, (+) vomiting, (-) diarrhea or constipation. No rectal bleeding.] GENITOURINARY: [No dysuria, frequency, or change in urination.] MUSCULOSKELETAL: [No joint or muscle swelling or pain. No neck or back pain.] SKIN AND BREASTS: [No rash or easy bruising.] NEUROLOGIC: [No headache, vertigo, loss of consciousness, or loss of sensation.] PSYCHIATRIC: [No depression or anxiety.] ENDOCRINE: [No increased thirst. No abnormal weight change.] HEMATOLOGIC/LYMPHATIC: [No anemia, easy bleeding, or history of blood clots.] ALLERGIC/IMMUNOLOGIC: [No hives or skin allergy. No latex allergy.] GENERAL: [The patient is awake, alert, and fully oriented, in no acute distress. ] HEAD: [Normal with no signs of trauma.] EYES: [Pupils equal, round and reactive to light, extraocular movements intact, sclera anicteric, conjunctiva clear.] ENT: [Ears normal, nares patent, oropharynx clear without exudates. Moist mucous membranes.] NECK: [Normal range of motion, supple without lymphadenopathy, JVD, or masses.] LUNGS: [Breath sounds equal, clear to auscultation bilaterally. No wheezes, and no crackles.] HEART: [Regular rate and rhythm, normal S1 and S2 without murmur, rub.] ABDOMEN: [Soft, (+) tenderness generalized, normoactive bowel sounds. No guarding, no rebound. No masses, midline scar infraumblical .] EXTREMITIES: [Normal range of motion, no edema. No clubbing or cyanosis. No cords, erythema, or tenderness.] NEUROLOGICAL: [Cranial nerves II through XII grossly intact. Normal speech, normal gait.] PSYCH: [Normal mood, normal affect.] SKIN: [Warm, Dry, normal turgor, no rashes or lesions noted.] Past History - Past Medical History Allergies/Adverse Reactions: Allergies Allergy/AdvReac Type Severity Reaction Status Date / Time No Known Allergies Allergy Verified 01/20/18 19:18 Home Medications: Ambulatory Orders Aspirin [ASA -] 81 mg PO DAILY 11/14/17 Furosemide [Lasix] 20 mg PO DAILY 11/14/17 Metoprolol Tartrate [Lopressor -] 25 mg PO BID #60 tablet 11/21/17 Cardiac Disorders: Yes (cardiac arrest 5 yrs ago) COPD: No (resp failure) Dementia: Yes HTN: Yes Hypercholesterolemia: Yes Psychiatric Problems: Yes (DEPRESSION) - Surgical History Cardiac Surgery: Yes (PPM) - Suicide/Smoking/Psychosocial Hx Smoking History: Never smoked Have you smoked in the past 12 months: No Hx Alcohol Use: No Drug/Substance Use Hx: No Substance Use Type: None *Physical Exam - Vital Signs Last Vital Signs Temp Pulse Resp BP Pulse Ox 98.7 F 66 18 152/76 92 L 01/20/18 19:12 01/20/18 19:12 01/20/18 19:12 01/20/18 19:12 01/20/18 19:12 ED Treatment Course - LABORATORY CBC & Chemistry Diagram: 01/20/18 23:37 01/21/18 01:08 - RADIOLOGY Radiology Studies Ordered: Category Date Time Status ABDOMEN & PELVIS CT WITH CONTR [CT] Stat CT Scan 01/20/18 22:53 Ordered ABDOMEN FLAT & UPRIGHT [RAD] Stat Radiology 01/20/18 22:55 Ordered Medical Decision Making - Medical Decision Making 01/20/18 22:57 Patient is a 87 year old female h/o HTN, HLD, WI, C/S, pacemaker brought by daughter for c/o "whining" 3 days as if in pain, abd tenderness when touched, nausea, vomiting, decreased appetite, DDx: SBO, diverticultis, appendicitis, UTI, cholecystitis. will get labs, ct abd ekg EKG Ventricular Pacemaker rhythm 73, LAD, *DC/Admit/Observation/Transfer Diagnosis at time of Disposition: Poor appetite Abdominal pain Qualifiers: Abdominal location: generalized Qualified Code(s): R10.84 - Generalized abdominal pain - Discharge Dispostion Decision to Admit order: Yes - Referrals Referrals: Darwin Nicole PA [Primary Care Provider] - - Patient Instructions - Post Discharge Activity
[2018-01-20] MEDS ORDERED: ACETAMINOPHEN INJECTION 100 ML IVPB ONE (23:33)
[2018-01-20 23:47] LABS: BASO % 1.1 % (0-2.0); EOS % 3.4 % (0-4.5); HEMATOCRIT 35.1 % (32.4-45.2); HEMOGLOBIN 11.7 GM/dL (10.7-15.3); LYMPH % 28.3 % (8-40); MCH 32.2 pg (25.7-33.7); MCHC 33.2 g/dl (32.0-36.0); MEAN PLT VOLUME 11.1 fl (7.5-11.1); MONO % 9.3 % (3.8-10.2); NEUT % 57.9 % (42.8-82.8); PLATELET COUNT 149 K/MM3 (134-434); RBC 3.62 M/mm3 (3.60-5.2); RDW 12.9 % (11.6-15.6); WHITE BLOOD COUNT 7.3 K/mm3 (4.0-10.0)
[2018-01-21 01:36] LABS: ALBUMIN 3.6 g/dl (3.4-5.0); ANION GAP 7 (8-16); BILIRUBIN,TOTAL 0.5 mg/dL (0.2-1.0); BLOOD UREA NITROGEN 29 mg/dL (7-18); CALCIUM 10.9 mg/dL (8.5-10.1); CHLORIDE 104 mmol/L (98-107); CO2 30 mmol/L (21-32); CREATININE 1.8 mg/dL (0.55-1.02); GLUCOSE,RANDOM 111 mg/dL (74-106); POTASSIUM 4.3 mmol/L (3.5-5.1); SGOT/AST 20 U/L (15-37); SGPT/ALT 15 U/L (12-78); SODIUM 141 mmol/L (136-145); TOT PROT 6.8 g/dl (6.4-8.2)
[2018-01-21 01:37] LABS: ALK PHOS 63 U/L (45-117)
[2018-01-21] MEDS: SODIUM CHLORIDE 1,000 ML IV SCH ×2 (05:06→09:44)
--- NOTE | 2018-01-21 05:39 | HP ---
CHIEF COMPLAINT: Poor oral intake and abdominal pain PCP: Not on staff HISTORY OF PRESENT ILLNESS: Patient is an 87 year old female with a PMHx of CHF, CAD s/p PPM, HTN, HLD, COPD (02 at home), Alzheimers dementia who was brought over by her daughter for abdominal pain and poor oral intake associated with nausea. Patient is poor historian and all information obtained from daughter at bedside. Patient's daughter states that since (01/18/18) patient has had right sided upper and lower abdominal pain described as sharp and is worse when palpating. Patient has had decreased appetite since the pain started. Patient's daughter states that she was previously in [place] but came to [facility] due to her advancing alzheimers 8 months ago. Otherwise, patient denies chest pain, palpitations, headaches, dysuria, hematuria, melena, hematochezia. Daughter is unable to tell if she's had fevers because patient has been receiving Tylenol every 4 hours for the abdominal pain. ER course was notable for: (1) Abdominal CT- moderate gallbladder distention with sludge and cholelithiasis suggestive of chronic cholecystitis. (2) Chest X-ray showed cardiomegaly (3) Recent Travel: Recent move from [place] PAST MEDICAL HISTORY: HTN, HLD, CHF, CAD s/p PPM, COPD (on ), alzheimers dementia PAST SURGICAL HISTORY: Denies (however, patient as vertical lower abdominal scar ) Social History: Smoking:Never Alcohol: None Drugs: None Allergies: No Known Allergies Allergy (Verified 01/20/18 19:18) HOME MEDICATIONS: Home Medications Medication Instructions Recorded Aspirin [ASA -] 81 mg PO DAILY 11/14/17 Furosemide [Lasix] 20 mg PO DAILY 11/14/17 Metoprolol Tartrate [Lopressor -] 25 mg PO BID #60 tablet 11/21/17 REVIEW OF SYSTEMS unable to obtain PHYSICAL EXAMINATION Vital Signs - 24 hr 01/20/18 01/21/18 19:12 01:53 Temperature 98.7 F 97.9 F Pulse Rate 66 Pulse Rate [ 70 Left Radial] Respiratory 18 17 Rate Blood Pressure 152/76 Blood Pressure 155/79 [Right Arm] O2 Sat by Pulse 92 L 97 Oximetry (%) GENERAL: Awake, drowsy, not oriented, in no acute distress. HEAD: Normal with no signs of trauma. EYES: Pupils equal, round and reactive to light, extraocular movements intact, sclera anicteric, conjunctiva clear. No lid lag. EARS, NOSE, THROAT: Oropharynx clear without exudates. Moist mucous membranes with yellow thrush on tongue NECK: Normal range of motion, supple without lymphadenopathy, JVD, or masses. LUNGS: Decreased Breath sounds equal, clear to auscultation bilaterally. No wheezes, and no crackles. No accessory muscle use. HEART: Regular rate and rhythm, normal S1 and S2 without murmur, rub or gallop. ABDOMEN: Soft, TTP of RUQ, RLQ and suprapubic tenderness, mildly distended, normoactive bowel sounds, (+) montilla's sign no guarding, no rebound, no masses. No hepatomegaly or splenomegaly. Vertical lower midabdominal scar MUSCULOSKELETAL: No CVA tenderness. UPPER EXTREMITIES: No peripheral edema. LOWER EXTREMITIES: No calf tenderness. No peripheral edema. NEUROLOGICAL: unable to assess. No facial assymetry Laboratory Results - last 24 hr 01/20/18 01/20/18 01/21/18 23:37 23:37 01:08 WBC 7.3 RBC 3.62 Hgb 11.7 Hct 35.1 MCV 97.0 H MCH 32.2 MCHC 33.2 RDW 12.9 Plt Count 149 MPV 11.1 Neutrophils % 57.9 D Lymphocytes % 28.3 D Monocytes % 9.3 Eosinophils % 3.4 D Basophils % 1.1 D Nucleated RBC % 0 Sodium Cancelled 141 Potassium Cancelled 4.3 Chloride Cancelled 104 Carbon Dioxide Cancelled 30 Anion Gap Cancelled 7 L BUN Cancelled 29 H Creatinine Cancelled 1.8 H Creat Clearance w eGFR Cancelled 26.74 Random Glucose Cancelled 111 H Calcium Cancelled 10.9 H Total Bilirubin Cancelled 0.5 D AST Cancelled 20 ALT Cancelled 15 Alkaline Phosphatase Cancelled 63 Creatine Kinase Cancelled Troponin I Cancelled Total Protein Cancelled 6.8 Albumin Cancelled 3.6 Lipase Cancelled ASSESSMENT/PLAN: Patient is an 87 year old female who was sent over by her daughter for abdominal pain and decreased PO intake. Patient found to have OPAL with possible chronic cholecystitis. Abdominal Pain and Nausea likely secondary to UTI -Will need to rule out infectious vs. obstructive causes -CT abdomen revealed gallbladder distention with sludging with possible chronic cholecystitis -U/A revealed 1+ LE and WBC 40 -Labs reveal no elevated LFT's -Lactic negative -Clear liquids -Tylenol 650mg PO PRN -Urine and blood cultures sent OPAL -Baseline 1.0 and today 1.8 -Likely hypovolemia due to poor oral intake -Urine lytes -Would not recommend giving fluids due to history of CHF -Avoid nephrotoxic medications -Renally dose medications Oral Yellow thrush -Swish and swallow ordered HTN -hold home medication Lasix 20mg daily -Continue to monitor BP CHF -Daughter states she has a history of CHF and takes medications to help get rid of the fluids -Hold lasix due to OPAL CAD s/p PPM -Continue baby aspirin 81mg daily -BNP ordered HLD -Continue home medication Pravastatin 40mg daily COPD on 02 -Daughter states she's on of 3L but only puts it on her when needed -DuoNebs PRN Alzheimers Dementa -Continue Memantine 40mg HS F/E/N -On no fluids -Electrolytes wnl -Clear liquids Prophylaxis -Moderate risk. Hepatin 5000 units sq -No GI required Disposition -Will observe overnight for any vomiting Visit type - Emergency Visit Emergency Visit: Yes ED Registration Date: 01/21/18 Care time: The patient presented to the Emergency Department on the above date and was hospitalized for further evaluation of their emergent condition. - New Patient This patient is new to me today: Yes Date on this admission: 01/21/18 - Critical Care Critical Care patient: No Hospitalist Screening - Colonoscopy Questionnaire Colonoscopy Questionnaire: Colonoscopy Questionnaire - Patient: 50 - 75 years old and never had a screening colonoscopy: Unknown History of colon or rectal polyps, or CA: Unknown History of IBD, Crohn's disease or UC: Unknown History of abdominal radiation therapy as a child: Unknown - Relative: 1 with colon or rectal CA, or polyps at age 60 or younger: Unknown Colon or rectal CA diagnosed at age 45 or younger: Unknown Multiple relatives with colon or rectal CA: Unknown - Outcome: Screening Result: Negative Screen
[2018-01-21 05:49] LABS: URINE APPEARANCE SLCLOUDY; URINE BILIRUBIN NEGATIVE (<2.0 mg/dL); URINE COLOR YELLOW; URINE GLUCOSE (UA) NEGATIVE (NEGATIVE); URINE KETONE NEGATIVE (NEGATIVE); URINE NITRITE NEGATIVE (NEGATIVE); URINE PROTEIN NEGATIVE (NEGATIVE); URINE UROBILINOGEN NEGATIVE mg/dL (0.2-1.0)
[2018-01-21] MEDS ORDERED: ALBUTEROL SO4 2.5/IPRATROPIUM 0.5 INH SOL 3 ML VIAL.NEB. NEB PRN (05:51)
[2018-01-21 05:57] LABS: URINE LEUK ESTERASE 1+ (NEGATIVE)
[2018-01-21] MEDS ORDERED: morphine SULFATE 4 MG/ML VIAL IVPUSH PRN (05:58)
[2018-01-21 06:00] LABS: EPI CELLS RARE /HPF (FEW); URINE BACTERIA FEW /hpf (NONE SEEN); URINE HYALINE CAST 69 /lpf; URINE MUCUS RARE
[2018-01-21 06:06] LABS: LIPASE 173 U/L (73-393)
[2018-01-21] MEDS ORDERED: HEPARIN NA (PORCINE) 5,000 UNITS/ML 1ML VIAL ONE (06:15)
[2018-01-21] MEDS: HEPARIN NA (PORCINE) 5,000 UNITS/ML 1ML VIAL SQ SCH ×3 (06:16→21:05)
[2018-01-21] MEDS: NYSTATIN 500,000 UNITS/5 ML SUSPENSION PO SCH ×3 (06:47→17:19)
--- NOTE | 2018-01-21 07:20 | PN ---
Teaching Attending Note Name of Resident: Anahi Frazier ATTENDING PHYSICIAN STATEMENT I saw and evaluated the patient. Chart, data, imaging reviewed. I reviewed the resident's note and discussed the case with the resident. I agree with the resident's findings and plan as documented. SUBJECTIVE: 87 year old female with a PMHx of CHF, CAD s/p PPM, HTN, HLD, COPD (02 at home) , Alzheimers dementia brought to hospital by her daughter for abdominal pain and poor oral intake associated with nausea. No mention of diarrhea. No recent travels noted. There is no fever or chills. OBJECTIVE: Last Vital Signs Temp Pulse Resp BP Pulse Ox 97.9 F 70 17 155/79 97 01/21/18 01:53 01/21/18 01:53 01/21/18 01:53 01/21/18 01:53 01/21/18 01:53 general -aaox3, nad heent - at, normocephalic neck -supple cv-s1+s2+RRR chest-cta b/l abdomen -soft, nt, BS+ skin - no rashes appreciated Abnormal Lab Results 01/20/18 01/21/18 01/21/18 23:37 01:08 05:28 MCV 97.0 H Anion Gap 7 L BUN 29 H Creatinine 1.8 H Random Glucose 111 H Calcium 10.9 H Ur Leukocyte Esterase 1+ H ASSESSMENT AND PLAN: #87yo woman with abdominal pain and failure to thrive, with possible UTI as UA showed pyuria. CT of abdomen showing no free air under diaphragm or bowel obstruction. -urine culture -ceftriaxone 1g IV q24hrs -observation -zofran IV for nausea/vomiting -tylenol prn if abdominal pain #OPAL -urine lytes, cr, osm -serum osm -renal U/S #heparin sc for DVT ppx
[2018-01-21] MEDS ORDERED: cefTRIAXone SODIUM 1 GM VIAL ONE (09:36)
[2018-01-21] MEDS ORDERED: DEXTROSE 5%-WATER - 50 ML IVPB ONE (09:37)
[2018-01-21] MEDS: QUEtiapine FUMARATE 25 MG TABLET (FP) PO SCH (09:40)
[2018-01-21] MEDS: CEFTRIAXONE 1 GM in DEXTROSE 5%-WATER - 50 ML IVPB SCH (09:40)
[2018-01-21] MEDS: MEMANTINE HCL 10 MG TABLET (FP) PO SCH (09:40)
[2018-01-21] MEDS: ASPIRIN 81 MG CHEWABLE TABLETS PO SCH (09:40)
[2018-01-21] MEDS ORDERED: CEFTRIAXONE 1 GM in DEXTROSE 5%-WATER - 100 ML IVPB SCH (10:00)
[2018-01-21] MEDS ORDERED: FUROSEMIDE 20 MG TABLET (FP) PO SCH (10:00)
[2018-01-21] MEDS ORDERED: FUROSEMIDE 40 MG/4 ML INJECTABLE VIAL IVPUSH ONE (15:38)
--- NOTE | 2018-01-21 15:44 | PN ---
Progress Note (short form) - Note Progress Note: Subjective: poor historian but complains of SOB. [employer] phone was used with her son in law at bed side . abd pain and increased lethargy were noted at home , no diarrhea , no N/V. Objective: Vital Signs: Last Vital Signs Temp Pulse Resp BP Pulse Ox 97.9 F 74 20 152/68 94 L 01/21/18 15:18 01/21/18 15:18 01/21/18 15:18 01/21/18 15:18 01/21/18 13:51 Laboratory Results - last 24 hr 01/20/18 01/20/18 01/21/18 23:37 23:37 01:08 WBC 7.3 RBC 3.62 Hgb 11.7 Hct 35.1 MCV 97.0 H MCH 32.2 MCHC 33.2 RDW 12.9 Plt Count 149 MPV 11.1 Neutrophils % 57.9 D Lymphocytes % 28.3 D Monocytes % 9.3 Eosinophils % 3.4 D Basophils % 1.1 D Nucleated RBC % 0 Sodium Cancelled 141 Potassium Cancelled 4.3 Chloride Cancelled 104 Carbon Dioxide Cancelled 30 Anion Gap Cancelled 7 L BUN Cancelled 29 H Creatinine Cancelled 1.8 H Creat Clearance w eGFR Cancelled 26.74 Random Glucose Cancelled 111 H Hemoglobin A1c % Lactic Acid Calcium Cancelled 10.9 H Total Bilirubin Cancelled 0.5 D AST Cancelled 20 ALT Cancelled 15 Alkaline Phosphatase Cancelled 63 Creatine Kinase Cancelled 29 Troponin I Cancelled 0.03 B-Natriuretic Peptide Total Protein Cancelled 6.8 Albumin Cancelled 3.6 Lipase Cancelled 173 Urine Color Urine Appearance Urine pH Ur Specific [place] Urine Protein Urine Glucose (UA) Urine Ketones Urine Blood Urine Nitrite Urine Bilirubin Urine Urobilinogen Ur Leukocyte Esterase Urine WBC (Auto) Urine RBC (Auto) Ur Epithelial Cells Urine Bacteria Hyaline Casts Urine Mucus 01/21/18 01/21/18 01/21/18 05:28 05:28 05:28 WBC RBC Hgb Hct MCV MCH MCHC RDW Plt Count MPV Neutrophils % Lymphocytes % Monocytes % Eosinophils % Basophils % Nucleated RBC % Sodium Potassium Chloride Carbon Dioxide Anion Gap BUN Creatinine Creat Clearance w eGFR Random Glucose Hemoglobin A1c % Lactic Acid 0.8 Calcium Total Bilirubin AST ALT Alkaline Phosphatase Creatine Kinase 52 Troponin I 0.03 B-Natriuretic Peptide Total Protein Albumin Lipase Urine Color Yellow Urine Appearance Slcloudy Urine pH 5.0 Ur Specific [place] 1.018 Urine Protein Negative Urine Glucose (UA) Negative Urine Ketones Negative Urine Blood Negative Urine Nitrite Negative Urine Bilirubin Negative Urine Urobilinogen Negative Ur Leukocyte Esterase 1+ H Urine WBC (Auto) 40 Urine RBC (Auto) 2 Ur Epithelial Cells Rare Urine Bacteria Few Hyaline Casts 69 Urine Mucus Rare 01/21/18 01/21/18 06:50 09:40 WBC RBC Hgb Hct MCV MCH MCHC RDW Plt Count MPV Neutrophils % Lymphocytes % Monocytes % Eosinophils % Basophils % Nucleated RBC % Sodium Potassium Chloride Carbon Dioxide Anion Gap BUN Creatinine Creat Clearance w eGFR Random Glucose Hemoglobin A1c % 6.4 H Lactic Acid Calcium Total Bilirubin AST ALT Alkaline Phosphatase Creatine Kinase Troponin I B-Natriuretic Peptide 2389.73 H Total Protein Albumin Lipase Urine Color Urine Appearance Urine pH Ur Specific [place] Urine Protein Urine Glucose (UA) Urine Ketones Urine Blood Urine Nitrite Urine Bilirubin Urine Urobilinogen Ur Leukocyte Esterase Urine WBC (Auto) Urine RBC (Auto) Ur Epithelial Cells Urine Bacteria Hyaline Casts Urine Mucus Physical Exam: NAD, sleeping comfortably CV: RRR, 3/6 SM all over especially apex with radiation to axilla . No JVD Lungs: crackles half way down on both lung robles Ext: trace edema Abd: soft, ND, obese, TTP in suprapubic area. mid line surgical scar Assessment/Plan: 87 y/o lady with h/o diastolic CHF, CAD , s/p PPM, HTN, HLD, COPD (02 at home), Alzheimers dementia who presented with ABd painand increased lethargy, and was found ot have UTI 1- UTI: - cont ceftriaxone - follow urine cx and blood cx 2- toxic metabolic encephalopathy due to infection . treat infection 3- Acute diastolic heart failure: s/p IVF @ 150 cc/hr. last echo in 11/05 with LVH and severe MR. - stop IVF - give IV lasix x 1 - monitor lung exam 4- OPAL: not sure if due to hypocolemia ( per admitting MD yesterday ) or from heart failure. Now in heart failure after fluids - check cr tomorrow - check US to r/o obstruction - bladder scan 5- CAD: - cont ASA - not on BB . has PPM 6- HTN: uncontrolled. not on any BP meds at home. - give 2.5 of norvasc now . if needed can continue 7- DVT PX : heparin sq Visit type - Emergency Visit Emergency Visit: Yes ED Registration Date: 01/21/18 Care time: The patient presented to the Emergency Department on the above date and was hospitalized for further evaluation of their emergent condition. - New Patient This patient is new to me today: Yes Date on this admission: 01/21/18 - Critical Care Critical Care patient: No - Discharge Referral Referred to [facility] Med P.C.: No
[2018-01-21 20:46] LABS: URINE CREATININE 8.6 mg/dL (20-320)
[2018-01-21] MEDS: ATORVASTATIN CA 10 MG TABLET (FP) PO SCH (21:05)
--- NOTE | 2018-01-21 22:08 | EKG ---
Test Reason : Blood Pressure : / mmHG Vent. Rate : 073 BPM Atrial Rate : 067 BPM P-R Int : 000 ms QRS Dur : 176 ms QT Int : 484 ms P-R-T Axes : 070 -68 093 degrees QTc Int : 533 ms Ventricular-paced rhythm ABNORMAL ECG WHEN COMPARED WITH ECG OF 19-NOV-2017 20:15, VENT. RATE HAS DECREASED BY 18 BPM Confirmed by RAYMOND SOMMERS MD ([id number]) on 01/21/2018 10:08:03 PM Referred By: Confirmed By:RAYMOND SOMMERS MD
[2018-01-22] MEDS: NYSTATIN 500,000 UNITS/5 ML SUSPENSION PO SCH ×4 (01:25→18:21)
[2018-01-22] MEDS: HEPARIN NA (PORCINE) 5,000 UNITS/ML 1ML VIAL SQ SCH ×3 (05:12→21:50)
[2018-01-22 08:23] LABS: BASO % 0.7 % (0-2.0); EOS % 3.8 % (0-4.5); HEMATOCRIT 32.4 % (32.4-45.2); LYMPH % 14.5 % (8-40); MCH 32.8 pg (25.7-33.7); MCHC 34.1 g/dl (32.0-36.0); MEAN CELL VOLUME 96.4 fl (80-96); MEAN PLT VOLUME 10.7 fl (7.5-11.1); MONO % 7.6 % (3.8-10.2); NEUT % 73.4 % (42.8-82.8); PLATELET COUNT 130 K/MM3 (134-434); RBC 3.36 M/mm3 (3.60-5.2); RDW 12.8 % (11.6-15.6); WHITE BLOOD COUNT 7.1 K/mm3 (4.0-10.0)
[2018-01-22 08:35] LABS: PROTHROMBIN TIME (PATIENT) 11.3 SEC (9.7-13.0)
[2018-01-22 08:38] LABS: ACTIVATED PTT 51.6 SECONDS (26.9-34.4)
[2018-01-22 09:04] LABS: ALBUMIN 3.6 g/dl (3.4-5.0); ANION GAP 5 (8-16); BLOOD UREA NITROGEN 27 mg/dL (7-18); CALCIUM 9.5 mg/dL (8.5-10.1); CHLORIDE 106 mmol/L (98-107); CO2 32 mmol/L (21-32); GLUCOSE,RANDOM 85 mg/dL (74-106); POTASSIUM 3.9 mmol/L (3.5-5.1); SODIUM 143 mmol/L (136-145)
[2018-01-22 09:09] LABS: ALK PHOS 63 U/L (45-117); BILIRUBIN,TOTAL 0.6 mg/dL (0.2-1.0); CREATININE 1.8 mg/dL (0.55-1.02); PHOSPHOROUS 2.9 mg/dL (2.5-4.9); SGOT/AST 22 U/L (15-37); SGPT/ALT 14 U/L (12-78); TOT PROT 6.5 g/dl (6.4-8.2)
[2018-01-22] MEDS ORDERED: PT OWN MED DRAWER 7, Y5N ONE (09:30)
[2018-01-22] MEDS ORDERED: DEXTROSE 5%-WATER - 50 ML IVPB ONE (09:31)
[2018-01-22] MEDS ORDERED: cefTRIAXone SODIUM 1 GM VIAL ONE (09:31)
[2018-01-22] MEDS: CEFTRIAXONE 1 GM in DEXTROSE 5%-WATER - 50 ML IVPB SCH (09:34)
[2018-01-22] MEDS: MEMANTINE HCL 10 MG TABLET (FP) PO SCH (09:34)
[2018-01-22] MEDS: QUEtiapine FUMARATE 25 MG TABLET (FP) PO SCH (09:35)
[2018-01-22] MEDS: ASPIRIN 81 MG CHEWABLE TABLETS PO SCH (09:35)
[2018-01-22] MEDS: amLODIPine BESYLATE 5 MG TABLET (FP) PO SCH (12:29)
--- NOTE | 2018-01-22 13:39 | PN ---
Physical Exam: SUBJECTIVE: Patient seen and examined at bedside. OBJECTIVE: Vital Signs Period Temp Pulse Resp BP Sys/[place] Pulse Ox Last 24 Hr 97.9 F-99.3 F 71-78 18-20 136-166/68-86 94-95 GENERAL/NEURO: Sleeping, does not answer questions but makes verbal sounds with physical exam, resists eye opening LUNGS: Anterior breath sounds CTA HEART: Regular rate and rhythm, S1, S2, +III/ systolic murmur ABDOMEN: Soft, nontender, nondistended, normoactive bowel sounds, no guarding, no rebound EXTREMITIES: 2+ pulses, warm, well-perfused, no edema. Laboratory Results - last 24 hr 01/21/18 01/21/18 01/21/18 18:15 19:15 19:15 WBC Corrected WBC (auto) RBC Hgb Hct MCV MCH MCHC RDW Plt Count MPV Neutrophils % Lymphocytes % Monocytes % Eosinophils % Basophils % Nucleated RBC % Manual Slide Review Platelet Comment PT with INR INR PTT (Actin FS) Sodium Potassium Chloride Carbon Dioxide Anion Gap BUN Creatinine Creat Clearance w eGFR POC Glucometer 107 Random Glucose Calcium Phosphorus Magnesium Total Bilirubin AST ALT Alkaline Phosphatase Total Protein Albumin Ur Random Sodium 133 Ur Random Urea Nitrogn 79 Urine Creatinine 8.6 L 01/22/18 01/22/18 01/22/18 07:20 07:42 07:42 WBC Cancelled Corrected WBC (auto) Cancelled RBC Cancelled Hgb Cancelled Hct Cancelled MCV Cancelled MCH Cancelled MCHC Cancelled RDW Cancelled Plt Count Cancelled MPV Cancelled Neutrophils % Lymphocytes % Monocytes % Eosinophils % Basophils % Nucleated RBC % Manual Slide Review Cancelled Platelet Comment Cancelled PT with INR 11.30 INR 1.00 PTT (Actin FS) 51.6 H D Sodium 143 Potassium 3.9 Chloride 106 Carbon Dioxide 32 Anion Gap 5 L BUN 27 H Creatinine 1.8 H Creat Clearance w eGFR 26.74 POC Glucometer Random Glucose 85 Calcium 9.5 Phosphorus 2.9 Magnesium 2.0 Total Bilirubin 0.6 AST 22 ALT 14 Alkaline Phosphatase 63 Total Protein 6.5 Albumin 3.6 Ur Random Sodium Ur Random Urea Nitrogn Urine Creatinine 01/22/18 07:42 WBC 7.1 Corrected WBC (auto) RBC 3.36 L Hgb 11.0 Hct 32.4 MCV 96.4 H MCH 32.8 MCHC 34.1 RDW 12.8 Plt Count 130 L MPV 10.7 Neutrophils % 73.4 D Lymphocytes % 14.5 D Monocytes % 7.6 Eosinophils % 3.8 Basophils % 0.7 Nucleated RBC % 0 Manual Slide Review Platelet Comment PT with INR INR PTT (Actin FS) Sodium Potassium Chloride Carbon Dioxide Anion Gap BUN Creatinine Creat Clearance w eGFR POC Glucometer Random Glucose Calcium Phosphorus Magnesium Total Bilirubin AST ALT Alkaline Phosphatase Total Protein Albumin Ur Random Sodium Ur Random Urea Nitrogn Urine Creatinine Active Medications Generic Name Dose Route Start Last Admin Trade Name Freq PRN Reason Stop Dose Admin Albuterol/Ipratropium 1 amp 01/21/18 05:51 Duoneb - NEB Q6H PRN SHORTNESS OF BREATH Amlodipine Besylate 5 mg 01/22/18 11:15 01/22/18 12:29 Norvasc - PO 5 mg DAILY RAZ Administration Aspirin 81 mg 01/21/18 10:00 01/22/18 09:35 Asa - PO 81 mg DAILY RAZ Administration Atorvastatin Calcium 10 mg 01/21/18 22:00 01/21/18 21:05 Lipitor - PO 10 mg HS RAZ Administration Heparin Sodium (Porcine) 5,000 unit 01/21/18 06:00 01/22/18 05:12 Heparin - SQ 5,000 unit TID RAZ Administration Ceftriaxone Sodium 1 gm/ 50 mls @ 100 mls/hr 01/21/18 10:00 01/22/18 09:34 Dextrose IVPB 100 mls/hr Q24H RAZ Administration Protocol Memantine 10 mg 01/21/18 10:00 01/22/18 09:34 Namenda - PO 10 mg DAILY RAZ Administration Morphine Sulfate 1 mg 01/21/18 05:58 Morphine Sulfate IVPUSH Q4H PRN PAIN LEVEL 6-10 Nystatin 500,000 units 01/21/18 06:00 01/22/18 12:29 Nystatin Oral Suspension - PO 500,000 units Q6HPO RAZ Administration Quetiapine Fumarate 25 mg 01/21/18 10:00 01/22/18 09:35 Seroquel - PO 25 mg DAILY RAZ Administration ASSESSMENT/PLAN 87 year-old male with a PMH significant for HTN, HLD, CAD s/p PPM, diastolic heart failure, COPD on O2, and dementia. Admitted for UTI and OPAL. UTI Metabolic encephalopathy --sleepy, not responding to commands but volitional pulling back from physical exam, resists eye opening --afebrile, no leukocytosis --continue ceftriaxone (day #2) OPAL --Cr. 1.8, baseline 1.1 --FeUrea 61% suggesting intrinsic process --US renal unremarkable --renal consult requested Diastolic heart failure --11/15/17 Echo: apical anterior septal wall hypokinesis, apical septal wall hypokinesis, moderate apical wall hypokinesis --got one dose IV Lasix yesterday --hold diuretics, no ACEI/ARB --cxr in am Hypertension --BP elevated, not on anti-hypertensives at home --start amlodipine 5mg, consider starting beta boy if HR permits Hyperlipidemia --continue Lipitor Coronary artery disease --continue ASA, statin COPD --duonebs PRN Dementia --continue Namenda, Seroquel FEN Fluids: PO intake adequate Electrolytes: replete as indicated Nutrition: clear DVT prophylaxis: subq heparin Dispo: continues to require inpatient care. Full code. Visit type - Emergency Visit Emergency Visit: Yes ED Registration Date: 01/21/18 Care time: The patient presented to the Emergency Department on the above date and was hospitalized for further evaluation of their emergent condition. - New Patient This patient is new to me today: Yes Date on this admission: 01/22/18 - Critical Care Critical Care patient: No
[2018-01-22] MEDS: ATORVASTATIN CA 10 MG TABLET (FP) PO SCH (21:51)
[2018-01-23] MEDS: NYSTATIN 500,000 UNITS/5 ML SUSPENSION PO SCH ×5 (00:15→19:21)
[2018-01-23] MEDS: HEPARIN NA (PORCINE) 5,000 UNITS/ML 1ML VIAL SQ SCH ×3 (06:20→21:19)
[2018-01-23] MEDS ORDERED: DEXTROSE 5%-WATER - 50 ML IVPB ONE (09:33)
[2018-01-23] MEDS ORDERED: cefTRIAXone SODIUM 1 GM VIAL ONE (09:33)
[2018-01-23] MEDS: CEFTRIAXONE 1 GM in DEXTROSE 5%-WATER - 50 ML IVPB SCH (09:59)
--- NOTE | 2018-01-23 10:00 | PN ---
Physical Exam: SUBJECTIVE: Patient seen and examined at bedside. Sitting up, smiling, interacting. Daughter present and provides following additional history. About 2 weeks ago patient was complaining of abdominal pain and was vomiting after eating. Daughter took her to PCP who prescribed amoxicillin. Patient completed 10-day course. About 3 days after finishing abx, symptoms of abdominal pain, nausea, and decreased PO intake recurred which is when daughter brought her to ED. OBJECTIVE: Vital Signs Period Temp Pulse Resp BP Sys/Childress Pulse Ox Last 24 Hr 98 F-99.0 F 69-78 20-20 145-157/68-72 95 GENERAL/NEURO: Awake, alert, oriented x 1. Cooperative. LUNGS: Anterior breath sounds CTA HEART: Regular rate and rhythm, S1, S2, +III/ systolic murmur ABDOMEN: Positive Baron's sign EXTREMITIES: 2+ pulses, warm, well-perfused, no edema. Active Medications Generic Name Dose Route Start Last Admin Trade Name Freq PRN Reason Stop Dose Admin Albuterol/Ipratropium 1 amp 01/21/18 05:51 Duoneb - NEB Q6H PRN SHORTNESS OF BREATH Amlodipine Besylate 5 mg 01/22/18 11:15 01/22/18 12:29 Norvasc - PO 5 mg DAILY RAZ Administration Aspirin 81 mg 01/21/18 10:00 01/22/18 09:35 Asa - PO 81 mg DAILY RAZ Administration Atorvastatin Calcium 10 mg 01/21/18 22:00 01/22/18 21:51 Lipitor - PO 10 mg HS RAZ Administration Heparin Sodium (Porcine) 5,000 unit 01/21/18 06:00 01/23/18 06:20 Heparin - SQ 5,000 unit TID RAZ Administration Ceftriaxone Sodium 1 gm/ 50 mls @ 100 mls/hr 01/21/18 10:00 01/22/18 09:34 Dextrose IVPB 100 mls/hr Q24H RAZ Administration Protocol Memantine 10 mg 01/21/18 10:00 01/22/18 09:34 Namenda - PO 10 mg DAILY RAZ Administration Morphine Sulfate 1 mg 01/21/18 05:58 Morphine Sulfate IVPUSH Q4H PRN PAIN LEVEL 6-10 Nystatin 500,000 units 01/21/18 06:00 01/23/18 05:25 Nystatin Oral Suspension - PO Not Given Q6HPO RAZ Quetiapine Fumarate 25 mg 01/21/18 10:00 01/22/18 09:35 Seroquel - PO 25 mg DAILY RAZ Administration ASSESSMENT/PLAN 87 year-old male with a PMH significant for HTN, HLD, CAD s/p PPM, diastolic heart failure, COPD on O2, and dementia. Admitted for UTI and OPAL. Abdominal pain --CTAP shows distended gallbladder, no clear evidence of cholelithiasis/ cholecystitis --+Baron's sign on exam; daughter provides history of several weeks of vomiting and abdominal pain associated with food --US abdomen ordered UTI Metabolic encephalopathy, resolved --alert, interactive, much improved --afebrile, no leukocytosis --first urine culture contaminated, second shows <10k colonies but after antibiotics started --will continue empiric ceftriaxone (day #3) OPAL --Cr. 1.8 on admission, 1.6 today, baseline 1.1 --FeUrea 61% suggesting intrinsic process --US renal unremarkable --renal consult requested Diastolic heart failure --11/15/17 Echo: apical anterior septal wall hypokinesis, apical septal wall hypokinesis, moderate apical wall hypokinesis --got one dose IV Lasix 01/21 --CXR today lungs are clear, no sign of overload --hold diuretics, no ACEI/ARB Hypertension --BP elevated, not on anti-hypertensives at home --continue amlodipine 5mg, consider starting beta boy if HR permits Hyperlipidemia --continue Lipitor Coronary artery disease --continue ASA, statin COPD --duonebs PRN Dementia --continue Namenda, Seroquel FEN Fluids: D51/2@50mL/hr while NPO Electrolytes: replete as indicated Nutrition: NPO DVT prophylaxis: subq heparin Dispo: continues to require inpatient care. Full code. Visit type - Emergency Visit Emergency Visit: Yes ED Registration Date: 01/21/18 Care time: The patient presented to the Emergency Department on the above date and was hospitalized for further evaluation of their emergent condition. - New Patient This patient is new to me today: No - Critical Care Critical Care patient: No
[2018-01-23] MEDS: MEMANTINE HCL 10 MG TABLET (FP) PO SCH (10:02)
[2018-01-23] MEDS: ASPIRIN 81 MG CHEWABLE TABLETS PO SCH (10:02)
[2018-01-23] MEDS: amLODIPine BESYLATE 5 MG TABLET (FP) PO SCH (10:02)
[2018-01-23] MEDS: QUEtiapine FUMARATE 25 MG TABLET (FP) PO SCH (10:02)
[2018-01-23 10:56] LABS: BASO % 0.7 % (0-2.0); EOS % 3.7 % (0-4.5); HEMATOCRIT 32.5 % (32.4-45.2); LYMPH % 16.9 % (8-40); MCH 32.6 pg (25.7-33.7); MCHC 33.7 g/dl (32.0-36.0); MEAN CELL VOLUME 96.5 fl (80-96); MEAN PLT VOLUME 10.4 fl (7.5-11.1); MONO % 6.7 % (3.8-10.2); PLATELET COUNT 132 K/MM3 (134-434); RBC 3.37 M/mm3 (3.60-5.2); RDW 12.8 % (11.6-15.6); WHITE BLOOD COUNT 6.3 K/mm3 (4.0-10.0)
[2018-01-23 12:08] LABS: ALBUMIN 3.3 g/dl (3.4-5.0); ANION GAP 7 (8-16); BLOOD UREA NITROGEN 24 mg/dL (7-18); CALCIUM 9.1 mg/dL (8.5-10.1); CHLORIDE 105 mmol/L (98-107); CO2 29 mmol/L (21-32); CREATININE 1.6 mg/dL (0.55-1.02); GLUCOSE,RANDOM 112 mg/dL (74-106); POTASSIUM 3.7 mmol/L (3.5-5.1); SGOT/AST 20 U/L (15-37); SGPT/ALT 14 U/L (12-78); SODIUM 141 mmol/L (136-145); TOT PROT 6.4 g/dl (6.4-8.2)
[2018-01-23 12:13] LABS: ALK PHOS 64 U/L (45-117); BILIRUBIN,TOTAL 0.4 mg/dL (0.2-1.0)
[2018-01-23] MEDS: DEXTROSE 5%-0.45% SALINE 1,000 ML IV SCH (13:00)
[2018-01-23 13:01] VITALS: BMI 25.1
--- NOTE | 2018-01-23 17:14 | CONSULT ---
Consult - text type - Consultation Consultation Note: Renal Consult for OPAL This is a 87 year old woman with PMhx of Hypertension, HLD, CAD s/p PPM, diastolic HF, COPD on O2, Dementia who presented with diffuse pain and poor apetite and found to have suspected UTI and OPAL with Cr of 1.8. Pt s/p recent admission during which she had OPAL with Cr peaking at 1.5. Denies any NSAID use or contrast exposure. No N/V/D. + Abd pain. No skin rash. Was on Abx at home. No leg swelling or sob. Making urine. PMhx: as above Allergies: NKDA Family Hx: NC Social hx: NO T/A/D ROS: as per HPI Home Medications Medication Instructions Recorded Aspirin [ASA -] 81 mg PO DAILY 11/14/17 Furosemide [Lasix] 20 mg PO DAILY 11/14/17 Memantine HCl [Namenda -] 10 mg PO DAILY 01/21/18 Pravastatin Sodium [Pravachol (Nf)] 40 mg PO HS 01/21/18 Quetiapine Fumarate [Seroquel -] 25 mg PO DAILY 01/21/18 Vital Signs Temperature 98.5 F 01/23/18 14:00 Pulse Rate 75 01/23/18 14:00 Respiratory Rate 20 01/23/18 14:00 Blood Pressure 160/73 01/23/18 14:00 O2 Sat by Pulse Oximetry (%) 95 01/22/18 21:00 Intake & Output 01/20/18 01/21/18 01/22/18 01/23/18 23:59 23:59 23:59 23:59 Intake Total 1200 Output Total 475 Balance 725 Weight 77.564 kg 72.121 kg 65.952 kg 68.492 kg NAD awake and alert Dry MM No JVD, Neck supple RRR, No M/R soft mild tenderness No LE edema, clubbing or cyanosis no bladder distension CBC, BMP 01/23/18 10:35 01/23/18 10:35 Current Medications Albuterol/Ipratropium (Duoneb -) 1 amp NEB Q6H PRN PRN Reason: SHORTNESS OF BREATH Amlodipine Besylate (Norvasc -) 5 mg PO DAILY [facility] Last Admin: 01/23/18 10:02 Dose: 5 mg Aspirin (Asa -) 81 mg PO DAILY [facility] Last Admin: 01/23/18 10:02 Dose: 81 mg Atorvastatin Calcium (Lipitor -) 10 mg PO HS [facility] Last Admin: 01/22/18 21:51 Dose: 10 mg Heparin Sodium (Porcine) (Heparin -) 5,000 unit SQ TID [facility] Last Admin: 01/23/18 06:20 Dose: 5,000 unit Ceftriaxone Sodium 1 gm/ (Dextrose) 50 mls @ 100 mls/hr IVPB Q24H RAZ; Protocol Last Admin: 01/23/18 09:59 Dose: 100 mls/hr Dextrose/Sodium Chloride (D5-1/2ns -) 1,000 mls @ 50 mls/hr IV ASDIR [facility] Last Admin: 01/23/18 13:00 Dose: 50 mls/hr Memantine (Namenda -) 10 mg PO DAILY [facility] Last Admin: 01/23/18 10:02 Dose: 10 mg Morphine Sulfate (Morphine Sulfate) 1 mg IVPUSH Q4H PRN PRN Reason: PAIN LEVEL 6-10 Nystatin (Nystatin Oral Suspension -) 500,000 units PO Q6HPO [facility] Last Admin: 01/23/18 05:25 Dose: Not Given Quetiapine Fumarate (Seroquel -) 25 mg PO DAILY [facility] Last Admin: 01/23/18 10:02 Dose: 25 mg 87 year old woman with PMhx of Hypertension, HLD, CAD s/p PPM, diastolic HF, COPD on O2, Dementia who presented with diffuse pain and poor apetite and found to have suspected UTI and OPAL with Cr of 1.8. #OPAL (differential includes AIN/ATN/Volume depletion, unlikely acute GN (no proteinuria or hematuria) #Possible UTI #distended gullbladder w/o stones #Hypertension Urine studies show elevated FeUrea consistent with tubular injury Check Urine Eosinophils US of the kidneys showed b/l cysts but no obstruction pt does not have PCKD as kidney size is normal to small can continue gentle IVF at the present time avoid nephrotoxins continue Abx as per ID Continue amlodpine, no KODY/ARB at this time Thank you Sanjay Willett DO
[2018-01-23] MEDS: ATORVASTATIN CA 10 MG TABLET (FP) PO SCH (21:19)
[2018-01-24] MEDS: NYSTATIN 500,000 UNITS/5 ML SUSPENSION PO SCH ×3 (06:40→11:15)
[2018-01-24] MEDS: HEPARIN NA (PORCINE) 5,000 UNITS/ML 1ML VIAL SQ SCH ×2 (06:41→14:42)
[2018-01-24 06:58] LABS: CHLORIDE 107 mmol/L (98-107); POTASSIUM 3.5 mmol/L (3.5-5.1); SODIUM 142 mmol/L (136-145)
[2018-01-24 07:23] LABS: ANION GAP 8 (8-16); BASO % 0.8 % (0-2.0); BLOOD UREA NITROGEN 19 mg/dL (7-18); CALCIUM 9.1 mg/dL (8.5-10.1); CO2 27 mmol/L (21-32); CREATININE 1.3 mg/dL (0.55-1.02); GLUCOSE,RANDOM 110 mg/dL (74-106); HEMATOCRIT 30.5 % (32.4-45.2); HEMOGLOBIN 10.6 GM/dL (10.7-15.3); LYMPH % 19.7 % (8-40); MCH 33.3 pg (25.7-33.7); MCHC 34.7 g/dl (32.0-36.0); MEAN CELL VOLUME 96.1 fl (80-96); MEAN PLT VOLUME 10.7 fl (7.5-11.1); MONO % 9.7 % (3.8-10.2); NEUT % 65.8 % (42.8-82.8); PLATELET COUNT 125 K/MM3 (134-434); RBC 3.17 M/mm3 (3.60-5.2); RDW 12.5 % (11.6-15.6); WHITE BLOOD COUNT 6.1 K/mm3 (4.0-10.0)
[2018-01-24] MEDS ORDERED: cefTRIAXone SODIUM 1 GM VIAL ONE (11:11)
[2018-01-24] MEDS ORDERED: DEXTROSE 5%-WATER - 50 ML IVPB ONE (11:11)
[2018-01-24] MEDS: CEFTRIAXONE 1 GM in DEXTROSE 5%-WATER - 50 ML IVPB SCH (11:13)
[2018-01-24] MEDS: amLODIPine BESYLATE 5 MG TABLET (FP) PO SCH (11:14)
[2018-01-24] MEDS: ASPIRIN 81 MG CHEWABLE TABLETS PO SCH (11:14)
[2018-01-24] MEDS: QUEtiapine FUMARATE 25 MG TABLET (FP) PO SCH (11:14)
[2018-01-24] MEDS: MEMANTINE HCL 10 MG TABLET (FP) PO SCH (11:14)
[2018-01-24] MEDS: DEXTROSE 5%-0.45% SALINE 1,000 ML IV SCH (11:15)
--- NOTE | 2018-01-24 12:34 | PN ---
Progress Note (short form) - Note Progress Note: Renal follow up for OPAL Pt seen and examined at the bedside no acute complaints no overnight events making urine on IVF Vital Signs Temperature 98.6 F 01/24/18 06:00 Pulse Rate 76 01/24/18 06:00 Respiratory Rate 20 01/24/18 06:00 Blood Pressure 155/68 01/24/18 06:00 O2 Sat by Pulse Oximetry (%) 95 01/23/18 09:00 Intake & Output 01/21/18 01/22/18 01/23/18 01/24/18 23:59 23:59 23:59 23:59 Intake Total 1200 400 600 Output Total 475 Balance 725 400 600 Weight 72.121 kg 65.952 kg 68.492 kg NAD Dry MM No JVD, Neck supple RRR, No M/R soft mild tenderness No LE edema, clubbing or cyanosis CBC, BMP 01/24/18 06:00 01/24/18 06:00 Current Medications Albuterol/Ipratropium (Duoneb -) 1 amp NEB Q6H PRN PRN Reason: SHORTNESS OF BREATH Amlodipine Besylate (Norvasc -) 5 mg PO DAILY [facility] Last Admin: 01/24/18 11:14 Dose: 5 mg Aspirin (Asa -) 81 mg PO DAILY [facility] Last Admin: 01/24/18 11:14 Dose: 81 mg Atorvastatin Calcium (Lipitor -) 10 mg PO HS [facility] Last Admin: 01/23/18 21:19 Dose: 10 mg Heparin Sodium (Porcine) (Heparin -) 5,000 unit SQ TID [facility] Last Admin: 01/24/18 06:41 Dose: 5,000 unit Ceftriaxone Sodium 1 gm/ (Dextrose) 50 mls @ 100 mls/hr IVPB Q24H RAZ; Protocol Last Admin: 01/24/18 11:13 Dose: 100 mls/hr Dextrose/Sodium Chloride (D5-1/2ns -) 1,000 mls @ 50 mls/hr IV ASDIR [facility] Last Admin: 01/24/18 11:15 Dose: 50 mls/hr Memantine (Namenda -) 10 mg PO DAILY [facility] Last Admin: 01/24/18 11:14 Dose: 10 mg Morphine Sulfate (Morphine Sulfate) 1 mg IVPUSH Q4H PRN PRN Reason: PAIN LEVEL 6-10 Nystatin (Nystatin Oral Suspension -) 500,000 units PO Q6HPO [facility] Last Admin: 01/24/18 11:15 Dose: 500,000 units Quetiapine Fumarate (Seroquel -) 25 mg PO DAILY [facility] Last Admin: 01/24/18 11:14 Dose: 25 mg 87 year old woman with PMhx of Hypertension, HLD, CAD s/p PPM, diastolic HF, COPD on O2, Dementia who presented with diffuse pain and poor apetite and found to have suspected UTI and OPAL with Cr of 1.8. #OPAL (differential includes AIN/ATN/Volume depletion, unlikely acute GN (no proteinuria or hematuria) #Possible UTI #distended gullbladder w/o stones #Hypertension Renal function improving at this time Urine Eios pending, FeUrea is high, US of kidney showed no obstruction Continue gentle IVF until oral intake is improved would avoid ARB at this time continue Abx as per ID Thank you Sanjay Willett DO
[2018-01-24 13:29] VITALS: BP 169/83; PULSE 78; TEMP 98.3
[2018-01-24] MEDS ORDERED: amLODIPine BESYLATE 5 MG TABLET (FP) PO STA (16:02)
--- NOTE | 2018-01-24 16:20 | DS ---
Physical Exam: SUBJECTIVE: Patient seen and examined OBJECTIVE: Vital Signs Period Temp Pulse Resp BP Sys/Childress Pulse Ox Last 24 Hr 98.3 F-99.8 F 73-78 18-20 141-169/68-83 PHYSICAL EXAM GENERAL/NEURO: Awake, alert, oriented x 1. Cooperative. LUNGS: Anterior breath sounds CTA HEART: Regular rate and rhythm, S1, S2, +III/ systolic murmur ABDOMEN: Positive Baron's sign EXTREMITIES: 2+ pulses, warm, well-perfused, no edema. LABS Laboratory Results - last 24 hr 01/24/18 01/24/18 06:00 06:00 WBC 6.1 RBC 3.17 L Hgb 10.6 L Hct 30.5 L MCV 96.1 H MCH 33.3 MCHC 34.7 RDW 12.5 Plt Count 125 L MPV 10.7 Absolute Neuts (auto) 4.0 Neutrophils % 65.8 Lymphocytes % 19.7 Monocytes % 9.7 Eosinophils % 4.0 Basophils % 0.8 Nucleated RBC % 0 Sodium 142 Potassium 3.5 Chloride 107 Carbon Dioxide 27 Anion Gap 8 BUN 19 H Creatinine 1.3 H Random Glucose 110 H Calcium 9.1 Magnesium 2.0 HOSPITAL COURSE: Date of Admission:01/21/18 Date of Discharge: 01/24/18 Pre hospital course 87 year old female with a PMH significant for CHF, CAD s/p PPM, HTN, HLD, COPD ( 02 at home), Alzheimers dementia. About 2 weeks ago patient was complaining of abdominal pain and was vomiting after eating. Daughter took her to PCP who prescribed amoxicillin. Patient completed 10-day course. About 3 days after finishing abx, symptoms of abdominal pain, nausea, and decreased PO intake recurred which is when daughter brought her to ED. No mention of diarrhea. No recent travels noted. There is no fever or chills. Hospital course Abdominal pain --CTAP shows distended gallbladder, no clear evidence of cholelithiasis/ cholecystitis; US also nonspecific findings --no surgical intervention UTI Metabolic encephalopathy, resolved --alert, interactive, much improved --afebrile, no leukocytosis --first urine culture contaminated, second shows <10k colonies but after antibiotics started --treated empirically with ceftriaxone x 4 days; discharged on augmentin OPAL --Cr. 1.8 on admission, 1.3 today, baseline 1.1 --US renal unremarkable Diastolic heart failure --11/15/17 Echo: apical anterior septal wall hypokinesis, apical septal wall hypokinesis, moderate apical wall hypokinesis --got one dose IV Lasix 01/21 --CXR lungs are clear, no sign of overload --hold diuretics, no ACEI/ARB Hypertension --BP elevated, not on anti-hypertensives at home --continued amlodipine 5mg Hyperlipidemia --continued Lipitor Coronary artery disease --continued ASA, statin COPD --duonebs PRN Dementia --continued Namenda, Seroquel Minutes to complete discharge: 35 Discharge Summary Reason For Visit: ABDOMINAL PAIN Current Active Problems Abdominal pain (Acute) Poor appetite (Acute) Condition: Improved - Instructions Diet, Activity, Other Instructions: Three prescriptions have been sent to your pharmacy. One is for amlodipine which is for your high blood pressure. One is for augmentin which is for your urinary tract infection. And one is for an increased dose of lasix. Take these medications as directed. It is important that you follow up with your primary care provider Dr. Murillo to have your blood pressure checked. Be sure to follow up with him within one week of your discharge. Return to the emergency department for any new or worsening symptoms. Referrals: Darwin Nicole PA [Primary Care Provider] - 1 Week Disposition: HOME - Home Medications Comprehensive Discharge Medication List: Ambulatory Orders Aspirin [ASA -] 81 mg PO DAILY 11/14/17 Memantine HCl [Namenda -] 10 mg PO DAILY 01/21/18 Pravastatin Sodium [Pravachol -] 40 mg PO HS 01/21/18 Quetiapine Fumarate [Seroquel -] 25 mg PO DAILY 01/21/18 Amlodipine Besylate [Norvasc -] 5 mg PO DAILY #30 tablet 01/24/18 Amoxicillin/Potassium Clav [Augmentin 875-125 Tablet] 1 each PO BID #6 tablet Furosemide [Lasix] 40 mg PO DAILY #30 tablet 01/24/18 This patient is new to me today: No Emergency Visit: Yes ED Registration Date: 01/21/18 Care time: The patient presented to the Emergency Department on the above date and was hospitalized for further evaluation of their emergent condition. Critical Care patient: No - Discharge Referral Referred to [facility] No
[2018-01-25] MEDS ORDERED: amLODIPine BESYLATE 10 MG TABLET (FP) PO SCH (10:00)
== END 2018-01-24 17:41 | disposition home or self-care (01) | DRG 682 ==
LOC: JER 18:42 → JERBED 01-21 05:53 → J8W 01-21 08:27 → OBSVTOIN 01-21 20:54
PROVIDERS: ADMIT Internal Medicine; ATTEND Nurse Practitioner Acute Care
DX: N17.9 Acute kidney failure, unspecified (principal); G93.41 Metabolic encephalopathy; I50.33 Acute on chronic diastolic (congestive) heart failure; B37.0 Candidal stomatitis; N39.0 Urinary tract infection, site not specified; R62.7 Adult failure to thrive; I25.10 Atherosclerotic heart disease of native coronary artery without angina pectoris; E78.5 Hyperlipidemia, unspecified; K82.8 Other specified diseases of gallbladder; J44.9 Chronic obstructive pulmonary disease, unspecified; G30.9 Alzheimer's disease, unspecified; E86.1 Hypovolemia; F02.80 Dementia in other diseases classified elsewhere, unspecified severity, without behavioral disturbance, psychotic disturbance, mood disturbance, and anxiety; F32.9 Major depressive disorder, single episode, unspecified; I11.0 Hypertensive heart disease with heart failure; Z95.0 Presence of cardiac pacemaker; Z99.81 Dependence on supplemental oxygen
CPT/HCPCS: 36415; 71045-TC-FY; 74176-TC; 76705-TC; 76775-TC; 80048; 80053; 81003; 81015; 82550; 82570; 82962; 83036; 83605; 83690; 83735; 83880; 84100; 84300; 84484; 84540; 85025; 85610; 85730; 87040; 87086; 87205; 93005; 93010; 97116-GP; 97161-GP; 99282-25; G0378; J0131; J1644; J7030

== ENCOUNTER 2018-03-09 23:44 | Inpatient (IN) | payer MEDICARE, OTHER ==
[2018-03-09] MEDS ORDERED: NALOXONE HCL 0.4 MG/ML VIAL ONE (23:48)
[2018-03-10] MEDS ORDERED: NALOXONE HCL 0.4 MG/ML VIAL IVPUSH ONE ×2 (00:43→01:40)
--- NOTE | 2018-03-10 01:02 | PDOC ---
Attending Attestation - HPI HPI: 03/10/18 01:04 The patient is a 87 year old female, with a significant past medical history of CHF, HTN, HLD, NV, C/S, pacemaker, depression, and dementia, who presents to the emergency department with, altered mental status. As per patients daughter and granddaughter her last known well was 10 hours ago when she took her normal afternoon nap. The family attempted to wake her when she began to groan and drool on one side. As per EMS, she was administered 0.4 mg of Narcan. The patient is on Aspirin. She started taking Remeron 2 nights ago. The family denies any recent trauma or recent travel. No further history can be provided due to patients change in mental status. Allergies: NKA Social history: Nonsmoker. Denies EtOH use and recreational drug use. Primary Care Physician: Dr. Nicole <Carlos Villalobos - Last Filed: 03/10/18 01:04> - Resident Resident Name: Jhnoy Talbot - ED Attending Attestation I have performed the following: I have examined & evaluated the patient, The case was reviewed & discussed with the resident, I agree w/resident's findings & plan, Exceptions are as noted - Physicial Exam PE: 03/10/18 01:48 Patient seen and evaluated immediately upon arrival. On arrival, Patient obtunded, bradypneic, moans to sternal rub Normocephalic, atraumatic Pupils pinpoint (increased to 3 mm bilaterally reactive after administration of 2 mg of Narcan) Neck is supple, there are no carotid bruits bilaterally CTA Right chest wall pacemaker is noted RRR Abdomen is soft, nontender, nondistended Babinski is negative bilaterally Patient's attended, localizes to sternal rub; after administration of 2 mg of Narcan, patient opening her eyes to verbal commands. - Medical Decision Making 03/10/18 01:50 87-year-old female with multiple comorbidities brought in by EMS for altered mental status (patient last seen in her baseline state of health at 2 PM on the day of arrival). Patient's pinpoint pupils and obtunded state improved upon administration of 2 mg of IV Narcan. I suspect polypharmacy with involvement of tramadol. Will rule out sepsis. We'll rule out intracranial pathology. Will obtain CT of head/CMP/CBC/UA/blood culture/drug screen. EKGs pain is without evidence of ischemia. Will reassess. Likely admission. 03/10/18 01:58 Patient again noted to become bradypneic requiring additional dose of Narcan at 2 mg. And tidal CO2 monitor applied which at this time is showing 33, with oxygen saturation 100% on 3 L via nasal cannula. We will start a Narcan drip at 2 mg an hour. 03/10/18 02:31 Patient's ammonia levels elevated without evidence of end stage liver disease. no known toxic ingestion or gi bleed. We'll administer lactulose. Will admit. 03/10/18 02:44 pts sxs are not localizing, stroke is unlikly and pt presented more than 8 hrs after last known. <Cedric Mendez - Last Filed: 03/10/18 02:46> Attestations - Attestations 03/10/18 01:04 Documentation prepared by Carlos Villalobos, acting as certified ophthalmic medical technician for Cedric Mendez MD. <Carlos Villalobos - Last Filed: 03/10/18 01:04>
--- NOTE | 2018-03-10 01:04 | PDOC ---
History of Present Illness - General Chief Complaint: Altered Mental Status Stated Complaint: POSSIBLE STROKE Time Seen by Provider: 03/10/18 00:34 - History of Present Illness Initial Comments: 03/10/18 01:04 Ms. Fred Browne is an 87 yo female w/ pmh of HTN, HLD, [place], arthritis, dementia, and pacemaker who presents for evaluation after family was unable to wake her earlier today. Per family she was at her baseline this morning when she ate her breakfast. Family reports she was her normal self until approximately 3pm when she went to the bathroom by herself. When she came back she sat in an easy chair. She was still sitting in this chair 6 hours later when they came home and family was unable to wake her. EMS was then called. Patient was observed to have pinpoint pupils with slow respirations to 5 however 0.4 narcan had no effect. Allergies: NKDA Past History - Past Medical History Allergies/Adverse Reactions: Allergies Allergy/AdvReac Type Severity Reaction Status Date / Time No Known Allergies Allergy Verified 03/10/18 00:16 Home Medications: Ambulatory Orders Aspirin [ASA -] 81 mg PO DAILY 11/14/17 Memantine HCl [Namenda -] 10 mg PO DAILY 01/21/18 Pravastatin Sodium [Pravachol -] 40 mg PO HS 01/21/18 Amlodipine Besylate [Norvasc -] 5 mg PO DAILY #30 tablet 01/24/18 Furosemide [Lasix] 40 mg PO DAILY #30 tablet 01/24/18 Donepezil HCl [Aricept -] 10 mg PO DAILY 03/10/18 Mirtazapine [Remeron -] 15 mg PO DAILY 03/10/18 Tramadol HCl/Acetaminophen [Tramadol-Acetaminophn 37.5-325] 1 tab PO PRN Cardiac Disorders: Yes (cardiac arrest 5 yrs ago) COPD: Yes CHF: Yes Dementia: Yes HTN: Yes Hypercholesterolemia: Yes Psychiatric Problems: Yes (DEPRESSION) - Surgical History Cardiac Surgery: Yes (PPM) - Suicide/Smoking/Psychosocial Hx Smoking History: Never smoked Have you smoked in the past 12 months: No Information on smoking cessation initiated: No Hx Alcohol Use: No Drug/Substance Use Hx: No Substance Use Type: None Review of Systems - Review of Systems Comments:: 03/10/18 01:16 Unable to obtain further. *Physical Exam - Vital Signs Last Vital Signs Temp Pulse Resp BP Pulse Ox 75 12 155/77 100 03/09/18 23:48 03/09/18 23:48 03/09/18 23:48 03/09/18 23:48 - Physical Exam Comments: 03/10/18 01:16 GENERAL: Patient on non-rebreather, extremely slow respirations HEAD: No signs of trauma, normocephalic, atraumatic EYES: +Pupils pinpoint and non-responsive ENT: Auricles normal inspection, nares patent, oropharynx clear without exudates. Moist mucosa NECK: Normal ROM, supple, no lymphadenopathy, JVD, or masses LUNGS: +Shallow and slow respirations, lungs clear to auscultation bilaterally on exam HEART: Regular rate and rhythm, normal S1 and S2, no murmurs, rubs or gallops, peripheral pulses normal and equal bilaterally. ABDOMEN: Soft, nontender, normoactive bowel sounds. No guarding, no rebound. No masses EXTREMITIES: Normal inspection, Normal range of motion, no edema. No clubbing or cyanosis. NEUROLOGICAL: +Unable to assess. SKIN: Warm, Dry, normal turgor, no rashes or lesions noted. ED Treatment Course - LABORATORY CBC & Chemistry Diagram: 03/10/18 01:22 03/10/18 01:22 - RADIOLOGY Radiology Studies Ordered: Category Date Time Status HEAD CT WITHOUT CONTRAST [CT] Stat CT Scan 03/10/18 00:44 Ordered CHEST X-RAY PORTABLE* [RAD] Stat Radiology 03/10/18 00:34 Ordered - Medications Given in the ED: ED Medications Discontinued Medications Generic Name Dose Route Start Last Admin Trade Name Marciano PRN Reason Stop Dose Admin Naloxone HCl 2 mg 03/10/18 00:43 03/10/18 00:01 Narcan - IVPUSH 03/10/18 00:44 2 mg ONCE ONE Administration Medical Decision Making - Medical Decision Making 03/10/18 01:27 Ms. Ibarra is an 87 yo female w/ pmh as described who presents for evaluation of ams. Patient given additional 2mg narcan upon presentation with subsequent return of consciousness. Patient remains depressed from baseline however per family. Family repeatedly adamant that no narcotics/opioids were administered today and patient had no access. Broad workup started to r/o alternate causes of AMS. 03/10/18 01:45 Patient noted to be lethargic 2 hours after presentation; 2mg narcan given again. Patient placed on narcan drip. 03/10/18 01:57 Patient currently pending multiple labs, head CT, ABG. EKG appears unchanged from previous. End-tital CO2 monitor applied. Patient currently satting at 100% on 3L NC. Patient signed out to Dr. Rogel for further evaluation. *DC/Admit/Observation/Transfer Diagnosis at time of Disposition: Altered mental status Qualifiers: Altered mental status type: unspecified Qualified Code(s): R41.82 - Altered mental status, unspecified - Discharge Dispostion Decision to Admit order: Yes - Referrals Referrals: Darwin Nicole PA [Primary Care Provider] - - Patient Instructions - Post Discharge Activity
[2018-03-10] MEDS ORDERED: NALOXONE HCL 0.4 MG/ML VIAL ONE (01:40)
[2018-03-10 01:44] LABS: BASO % 0.8 % (0-2.0); EOS % 2.3 % (0-4.5); HEMATOCRIT 39.9 % (32.4-45.2); HEMOGLOBIN 13.6 GM/dL (10.7-15.3); LYMPH % 23.9 % (8-40); MCH 32.9 pg (25.7-33.7); MCHC 34.1 g/dl (32.0-36.0); MEAN CELL VOLUME 96.4 fl (80-96); MEAN PLT VOLUME 10.5 fl (7.5-11.1); MONO % 6.1 % (3.8-10.2); NEUT % 66.9 % (42.8-82.8); PLATELET COUNT 184 K/MM3 (134-434); RBC 4.14 M/mm3 (3.60-5.2); RDW 12.2 % (11.6-15.6); WHITE BLOOD COUNT 8.5 K/mm3 (4.0-10.0)
[2018-03-10 02:06] LABS: VENOUS PH 7.32 (7.32-7.42); VENOUS PO2 41.2 mmHg (28-48)
[2018-03-10] MEDS: NALOXONE HCL 2 MG in DEXTROSE 5%-WATER - 495 ML IV SCH (02:10)
[2018-03-10 02:14] LABS: ALBUMIN 3.6 g/dl (3.4-5.0); ANION GAP 7 (8-16); BILIRUBIN,TOTAL 0.4 mg/dL (0.2-1.0); BLOOD UREA NITROGEN 25 mg/dL (7-18); CALCIUM 9.7 mg/dL (8.5-10.1); CHLORIDE 106 mmol/L (98-107); CO2 28 mmol/L (21-32); CREATININE 1.4 mg/dL (0.55-1.02); GLUCOSE,RANDOM 130 mg/dL (74-106); SGPT/ALT 25 U/L (12-78); SODIUM 141 mmol/L (136-145); TOT PROT 7.2 g/dl (6.4-8.2)
[2018-03-10 02:16] LABS: ALK PHOS 85 U/L (45-117); POTASSIUM 5.2 mmol/L (3.5-5.1); SGOT/AST 33 U/L (15-37)
[2018-03-10 02:23] LABS: INR 1.01 (0.82-1.09); PROTHROMBIN TIME (PATIENT) 11.4 SEC (9.7-13.0)
[2018-03-10] MEDS ORDERED: LACTULOSE 20 GM/30 ML UDC (FOR RECTAL USE ONLY) PR ONE (02:30)
[2018-03-10] MEDS ORDERED: SODIUM CHLORIDE 500 ML IV STA (02:31)
--- NOTE | 2018-03-10 03:00 | PN ---
Teaching Attending Note Name of Resident: Reji Fulton ATTENDING PHYSICIAN STATEMENT I saw and evaluated the patient. I reviewed the resident's note and discussed the case with the resident. I agree with the resident's findings and plan as documented. SUBJECTIVE: Patient is an 87 year old woman with a significant past medical history of CHF, HTN, HLD, IA, C/S, pacemaker, depression, and dementia, who presents to the emergency department with, altered mental status. As per patients daughter and granddaughter her last known well was 10 hours ago when she took her normal afternoon nap. The family attempted to wake her when she began to groan and drool on one side. As per EMS, she was administered 0.4 mg of Narcan. The patient is on Aspirin. She started taking Remeron 2 nights ago. The family denies any recent trauma or recent travel. No further history can be provided due to patients change in mental status. In the ER she remained lethargic and got a second dose of Narcan. She was give Romazicon and she woke up. OBJECTIVE: Lethargic before Romazicon. Vital Signs Period Temp Pulse Resp BP Sys/[place] Pulse Ox Last 24 Hr 75 12 155/77 100 HEENT: No Jaundice, eye redness or discharge, pinpoint pupils, Normocephalic, atraumatic. External ears are normal. No nasal discharge. Neck: Supple, nontender. No palpable adenopathy or thyromegaly. No JVD Chest: Good effort. Clear to auscultation and percussion. Heart: Regular. No S3, rub or murmur Abdomen: Not distended, soft, nontender and no HSM. No rebound or guarding. Normoactive bowel sounds. Ext: Peripheral pulses intact. No leg edema. Skin: Warm and dry. No petechiae, rash or ecchymosis. Neuro: Lethargic. Current Medications Generic Name Dose Route Start Last Admin Trade Name Freq PRN Reason Stop Dose Admin Naloxone HCl 2 mg/ Dextrose 500 mls @ 500 mls/hr 03/10/18 01:45 03/10/18 02: 10 IV 2 mg/hr TITR RAZ 500 mls/hr Administration Protocol 2 MG/HR Sodium Chloride 500 mls @ 1,000 mls/hr 03/10/18 02:31 03/10/18 02:35 Normal Saline - IV 03/10/18 03:00 1,000 mls/hr ASDIR STA Administration Home Medications Medication Instructions Recorded Aspirin [ASA -] 81 mg PO DAILY 11/14/17 Memantine HCl [Namenda -] 10 mg PO DAILY 01/21/18 Pravastatin Sodium [Pravachol -] 40 mg PO HS 01/21/18 Amlodipine Besylate [Norvasc -] 5 mg PO DAILY #30 tablet 01/24/18 Furosemide [Lasix] 40 mg PO DAILY #30 tablet 01/24/18 Donepezil HCl [Aricept -] 10 mg PO DAILY 03/10/18 Mirtazapine [Remeron -] 15 mg PO DAILY 03/10/18 Tramadol HCl/Acetaminophen 1 tab PO PRN 03/10/18 [Tramadol-Acetaminophn 37.5-325] Abnormal Lab Results 03/10/18 03/10/18 03/10/18 01:22 01:22 01:22 MCV 96.4 H POC VBG pCO2 Mixed VBG HCO3 Potassium 5.2 H Anion Gap 7 L BUN 25 H Creatinine 1.4 H Random Glucose 130 H Ammonia 62.2 H 03/10/18 01:22 MCV POC VBG pCO2 59.0 H Mixed VBG HCO3 29.3 H Potassium Anion Gap BUN Creatinine Random Glucose Ammonia ASSESSMENT AND PLAN: 1. Delirium - There is no obvious explanation for her AMS which seemed to have started suddenly today. Has COPD though there is no smoking history and is on 2L oxygen at home. We ordered an ABG. Head CT scan does not show any abnormality. No lateralizing signs, but will get a brain MRI. Drug side effect is the likely etiology. Responded to Romazicon? though urine toxicology is negative. Ammonia is elevated though the LFTs are normal and there is no history of liver disease. The ER started her on lactulose per rectum, though hepatic encephalopathy is unlikely. Continue NS at 100 cc/hour to enhance K+ excretion and correction of OPAL. Keep her NPO until swallow evaluation. Consult GI and Neurology. 2. OPAL - Etiology unclear. Will consult nephrology and avoid nephrotoxic agents such as NSAIDS, aminoglycosides, contrast dyes and certain alternative medicine products. 3. DVT prophylaxis - Heparin 5000u sq tid. 4. Advance directives - Full code
[2018-03-10] MEDS ORDERED: FLUMAZENIL 0.5 MG/5 ML VIAL IVPUSH ONE (03:19)
--- NOTE | 2018-03-10 03:19 | PDOC ---
*Physical Exam - Vital Signs Last Vital Signs Temp Pulse Resp BP Pulse Ox 75 12 155/77 100 03/09/18 23:48 03/09/18 23:48 03/09/18 23:48 03/09/18 23:48 ED Treatment Course - LABORATORY CBC & Chemistry Diagram: 03/10/18 01:22 03/10/18 01:22 - ADDITIONAL ORDERS Additional order review: Laboratory Results 03/10/18 03/10/18 03/10/18 01:45 01:22 01:22 PT with INR 11.40 INR 1.01 VBG pH 7.32 POC VBG pCO2 59.0 H POC VBG pO2 41.2 D Mixed VBG HCO3 29.3 H Sodium Potassium Chloride Carbon Dioxide Anion Gap BUN Creatinine Creat Clearance w eGFR Random Glucose Calcium Total Bilirubin AST ALT Alkaline Phosphatase Ammonia Creatine Kinase Troponin I Total Protein Albumin Salicylates < 4.0 Blood Type Antibody Screen 03/10/18 03/10/18 03/10/18 01:22 01:22 01:22 PT with INR INR VBG pH POC VBG pCO2 POC VBG pO2 Mixed VBG HCO3 Sodium 141 Potassium 5.2 H Chloride 106 Carbon Dioxide 28 Anion Gap 7 L BUN 25 H Creatinine 1.4 H Creat Clearance w eGFR 35.74 Random Glucose 130 H Calcium 9.7 Total Bilirubin 0.4 AST 33 ALT 25 Alkaline Phosphatase 85 Ammonia 62.2 H Creatine Kinase 58 Troponin I 0.03 Total Protein 7.2 Albumin 3.6 Salicylates Blood Type Cancelled Antibody Screen Cancelled 03/10/18 01:22 RBC 4.14 MCV 96.4 H MCHC 34.1 RDW 12.2 MPV 10.5 Neutrophils % 66.9 Lymphocytes % 23.9 D Monocytes % 6.1 Eosinophils % 2.3 Basophils % 0.8 - Medications Given in the ED: ED Medications Discontinued Medications Generic Name Dose Route Start Last Admin Trade Name Freq PRN Reason Stop Dose Admin Sodium Chloride 500 mls @ 1,000 mls/hr 03/10/18 02:31 03/10/18 02:35 Normal Saline - IV 03/10/18 03:00 1,000 mls/hr ASDIR STA Administration Naloxone HCl 2 mg 03/10/18 00:43 03/10/18 00:01 Narcan - IVPUSH 03/10/18 00:44 2 mg ONCE ONE Administration Naloxone HCl 2 mg 03/10/18 01:40 03/10/18 01:49 Narcan - IVPUSH 03/10/18 01:41 2 mg ONCE ONE Administration Medical Decision Making - Medical Decision Making 87 year old female signed out to me pending admission for likely tramadol overdose. Also has elevated ammonia. Unclear reason for ammonemia but unlikely related to GI bleed. Patient also does not appear to be a cirrhotic. Patient signed out to ICU team Dr Casey and medicine team Dr. Brady. 03/10/18 03:15 *DC/Admit/Observation/Transfer Diagnosis at time of Disposition: Hyperammonemia Altered mental status Qualifiers: Altered mental status type: unspecified Qualified Code(s): R41.82 - Altered mental status, unspecified Opioid overdose Qualifiers: Encounter type: initial encounter Injury intent: undetermined intent Qualified Code(s): T40.2X4A - Poisoning by other opioids, undetermined, initial encounter - Discharge Dispostion Condition at time of disposition: Stable Decision to Admit order: Yes - Referrals Referrals: Darwin Nicole PA [Primary Care Provider] - - Patient Instructions - Post Discharge Activity
[2018-03-10 03:23] LABS: URINE APPEARANCE CLEAR; URINE BILIRUBIN NEGATIVE (<2.0 mg/dL); URINE COLOR YELLOW; URINE GLUCOSE (UA) NEGATIVE (NEGATIVE); URINE KETONE NEGATIVE (NEGATIVE); URINE LEUK ESTERASE TRACE (NEGATIVE); URINE NITRITE NEGATIVE (NEGATIVE); URINE PROTEIN NEGATIVE (NEGATIVE); URINE UROBILINOGEN NEGATIVE mg/dL (0.2-1.0)
[2018-03-10 03:29] LABS: URINE MUCUS RARE
--- NOTE | 2018-03-10 03:42 | CONSULT ---
Consultation: REQUESTING PROVIDER: Vanessa CONSULT REQUEST: We have been asked to medically evaluate this patient for (ICU monitoring). HISTORY OF PRESENT ILLNESS: 87 year old female with PMH of CHF, HTN, COPD on home O2 (2L), HLD, pacemaker, depression, and dementia presents to the ED via ambulance after being found unresponsive in a chair by her family. She was found to have pinpoint pupils and decreased respirations and was given a dose of narcan by EMS which seemed to improved her mental status. She required another dose of narcan in the ED and was placed on a narcan drip at that time. She takes opioids at home for her arthritis pain, but all of her medications are managed carefully by her daughter who states she has not taken the opioid in the last week, and reports that her only new medication is mirtazapine which was started two days ago. When I saw the pt in the ED, she was arousable only to painful stimuli and not able to follow commands or respond to questioning. Family states that even with her dimentia, this is much lower than her current baseline. REVIEW OF SYSTEMS: Unable to obtain due to clinical status. PHYSICAL EXAMINATION Vital Signs - 24 hr 03/09/18 23:48 Pulse Rate 75 Respiratory 12 Rate Blood Pressure 155/77 O2 Sat by Pulse 100 Oximetry (%) GENERAL: Responsive only to painful stimuli, in no acute distress. HEAD: Normal with no signs of trauma. EYES: Pupils pinpoint, sclera anicteric, conjunctiva clear. No lid lag. EARS, NOSE, THROAT: Ears normal, nares patent, oropharynx clear without exudates. Moist mucous membranes. NECK: supple without lymphadenopathy, JVD, or masses. LUNGS: Breath sounds decreased, clear to auscultation bilaterally. No wheezes, and no crackles. No accessory muscle use. HEART: Regular rate and rhythm, normal S1 and S2 without murmur, rub or gallop. ABDOMEN: Soft, nontender, not distended, normoactive bowel sounds, no guarding, no rebound, no masses. MUSCULOSKELETAL: No bony deformities or tenderness. No CVA tenderness. UPPER EXTREMITIES: 2+ pulses, warm, well-perfused. No cyanosis. No clubbing. No peripheral edema. LOWER EXTREMITIES: 2+ pulses, warm, well-perfused. No calf tenderness. No peripheral edema. NEUROLOGICAL: Cranial nerves II-XII grossly intact, but unable to complete full neuro exam due to clinical status. SKIN: Warm, dry, normal turgor, no rashes or lesions noted. Laboratory Results - last 24 hr 03/10/18 03/10/18 03/10/18 01:22 01:22 01:22 WBC 8.5 RBC 4.14 Hgb 13.6 Hct 39.9 D MCV 96.4 H MCH 32.9 MCHC 34.1 RDW 12.2 Plt Count 184 D MPV 10.5 Absolute Neuts (auto) 5.7 Neutrophils % 66.9 Lymphocytes % 23.9 D Monocytes % 6.1 Eosinophils % 2.3 Basophils % 0.8 Nucleated RBC % 0 PT with INR INR VBG pH POC VBG pCO2 POC VBG pO2 Mixed VBG HCO3 Sodium 141 Potassium 5.2 H Chloride 106 Carbon Dioxide 28 Anion Gap 7 L BUN 25 H Creatinine 1.4 H Creat Clearance w eGFR 35.74 Random Glucose 130 H Calcium 9.7 Total Bilirubin 0.4 AST 33 ALT 25 Alkaline Phosphatase 85 Ammonia Creatine Kinase 58 Troponin I 0.03 Total Protein 7.2 Albumin 3.6 Urine Color Urine Appearance Urine pH Ur Specific [place] Urine Protein Urine Glucose (UA) Urine Ketones Urine Blood Urine Nitrite Urine Bilirubin Urine Urobilinogen Ur Leukocyte Esterase Salicylates Blood Type Cancelled Antibody Screen Cancelled 03/10/18 03/10/18 03/10/18 01:22 01:22 01:22 WBC RBC Hgb Hct MCV MCH MCHC RDW Plt Count MPV Absolute Neuts (auto) Neutrophils % Lymphocytes % Monocytes % Eosinophils % Basophils % Nucleated RBC % PT with INR INR VBG pH 7.32 POC VBG pCO2 59.0 H POC VBG pO2 41.2 D Mixed VBG HCO3 29.3 H Sodium Potassium Chloride Carbon Dioxide Anion Gap BUN Creatinine Creat Clearance w eGFR Random Glucose Calcium Total Bilirubin AST ALT Alkaline Phosphatase Ammonia 62.2 H Creatine Kinase Troponin I Total Protein Albumin Urine Color Urine Appearance Urine pH Ur Specific [place] Urine Protein Urine Glucose (UA) Urine Ketones Urine Blood Urine Nitrite Urine Bilirubin Urine Urobilinogen Ur Leukocyte Esterase Salicylates < 4.0 Blood Type Antibody Screen 03/10/18 03/10/18 01:45 03:10 WBC RBC Hgb Hct MCV MCH MCHC RDW Plt Count MPV Absolute Neuts (auto) Neutrophils % Lymphocytes % Monocytes % Eosinophils % Basophils % Nucleated RBC % PT with INR 11.40 INR 1.01 VBG pH POC VBG pCO2 POC VBG pO2 Mixed VBG HCO3 Sodium Potassium Chloride Carbon Dioxide Anion Gap BUN Creatinine Creat Clearance w eGFR Random Glucose Calcium Total Bilirubin AST ALT Alkaline Phosphatase Ammonia Creatine Kinase Troponin I Total Protein Albumin Urine Color Yellow Urine Appearance Clear Urine pH 6.0 Ur Specific [place] 1.013 Urine Protein Negative Urine Glucose (UA) Negative Urine Ketones Negative Urine Blood Negative Urine Nitrite Negative Urine Bilirubin Negative Urine Urobilinogen Negative Ur Leukocyte Esterase Trace Salicylates Blood Type Antibody Screen Active Medications Generic Name Dose Route Start Last Admin Trade Name Marciano PRN Reason Stop Dose Admin Naloxone HCl 2 mg/ Dextrose 500 mls @ 500 mls/hr 03/10/18 01:45 03/10/18 02: 10 IV 2 mg/hr TITR RAZ 500 mls/hr Administration Protocol 2 MG/HR ASSESSMENT/PLAN: 87 yo female admitted to the ICU after being found unresponsive with AMS s/p narcan with dDx of opioid overdose, CVA, medication interaction Neuro -AMS, responsive only to painful stimuli -Urine tox pending responsive to narcan at first but less so now Flumazenil given narcan drip -CT negative for hemorrhagic stroke Cardio -HTN, HLD, CHF Limit fluid as to avoid fluid overload Currently not tolerating PO due to mental status Hold resume statin once pt tolerates PO Home med Norvasc 5 mg PO Daily, will convert to IV in AM if not tolerating ASA 81 mg NR Daily Respiratory -Currently not in fluid overload -COPD on home O2 of 2L -Guarded respiratory status, some concern for pt ability to protect her airway -ABG pending GI -Hyperammonemia with undetermined cause, no evidence of acute or chronic liver failure or cirrhosis Renal -Mild renal insufficiency, seems to be at her baseline Cr. DVT Prophylaxis -SCD's -Heparin 5000 SQ TID FEN -Fluids: NS @ 100 cc/hr -Electrolytes: K+ 5.2, No EKG changes seen, will recheck BMP at 6 and correct if necessary -Nutrition: NPO until mental status improves Disposition Monitor in the ICU Problem List - Problems (1) Altered mental status Code(s): R41.82 - ALTERED MENTAL STATUS, UNSPECIFIED Qualifiers: Altered mental status type: unspecified Qualified Code(s): R41.82 - Altered mental status, unspecified (2) Hyperammonemia Code(s): E72.20 - DISORDER OF UREA CYCLE METABOLISM, UNSPECIFIED Visit type - Emergency Visit Emergency Visit: Yes ED Registration Date: 03/10/18 Care time: The patient presented to the Emergency Department on the above date and was hospitalized for further evaluation of their emergent condition. - New Patient This patient is new to me today: Yes Date on this admission: 03/10/18 - Critical Care Critical Care patient: Yes Total Critical Care Time (in minutes): 50 Critical Care Statement: The care of this patient involved high complexity decision making to prevent further life threatening deterioration of the patient 's condition and/or to evaluate & treat vital organ system(s) failure or risk of failure.
[2018-03-10] MEDS ORDERED: FLUMAZENIL 0.5 MG/5 ML VIAL ONE (03:43)
[2018-03-10] MEDS ORDERED: SODIUM CHLORIDE 1,000 ML IV SCH ×2 (03:45→10:09)
[2018-03-10 04:01] LABS: COCAINE, UR NEGATIVE ng/ml (CUTOFF=300); METHADONE, UR NEGATIVE ng/ml (CUTOFF=300); OPIATES, URI NEGATIVE ng/ml (CUTOFF=300); PHENCYCLIDINE,URINE NEGATIVE ng/ml (CUTOFF=25); URINE AMPHETAMINES NEGATIVE ng/ml (CUTOFF=500); URINE BARBITURATES NEGATIVE ng/ml (CUTOFF=200); URINE BENZODIAZEPINES NEGATIVE ng/ml (CUTOFF=200)
--- NOTE | 2018-03-10 04:05 | HP ---
CHIEF COMPLAINT: AMS PCP: HISTORY OF PRESENT ILLNESS: Patient is a 87 y/o F w/ PMHx CHF, COPD on 2L O2, Alzheimer dementia, AL, pacemaker, RA, HTN, HLD, cholelithiasis in [facility] until afternoon yesterday, then observed to be lethargic, groaning, drooling on one side. Noted to be bradypneic and have pinpoint pupils by EMS, given Narcan in the field. Started Remeron and Aricept 2 days prior to onset. Noted to have hyperammonemia to 62.2 in ED, given rectal lactulose, second dose of Narcan and Narcan drip. Obtundation temporarily improved with Narcan. Takes Tramadol for RA symptoms but has not had any in > 1 week per daughter. ER course was notable for: (1) Narcan (2) NH3 62.2 (3) Head CT negative Recent Travel: PAST MEDICAL HISTORY: As per HPI PAST SURGICAL HISTORY: Pacemaker placement, C/S Social History: (per family) Smoking: No Alcohol: No Drugs: No Family History: Allergies No Known Allergies Allergy (Verified 03/10/18 00:16) HOME MEDICATIONS: Home Medications Medication Instructions Recorded Aspirin [ASA -] 81 mg PO DAILY 11/14/17 Memantine HCl [Namenda -] 10 mg PO DAILY 01/21/18 Pravastatin Sodium [Pravachol -] 40 mg PO HS 01/21/18 Amlodipine Besylate [Norvasc -] 5 mg PO DAILY #30 tablet 01/24/18 Furosemide [Lasix] 40 mg PO DAILY #30 tablet 01/24/18 Donepezil HCl [Aricept -] 10 mg PO DAILY 03/10/18 Mirtazapine [Remeron -] 15 mg PO DAILY 03/10/18 Tramadol HCl/Acetaminophen 1 tab PO PRN 03/10/18 [Tramadol-Acetaminophn 37.5-325] REVIEW OF SYSTEMS Unable to ascertain PHYSICAL EXAMINATION Vital Signs - 24 hr 03/09/18 03/10/18 23:48 03:52 Temperature 97.9 F Pulse Rate 75 Pulse Rate [ 60 Right Radial] Respiratory 12 15 Rate Blood Pressure 155/77 Blood Pressure 148/70 [Right Arm] O2 Sat by Pulse 100 100 Oximetry (%) GENERAL: Obtunded, does not alert to noxious stimuli HEAD: NC/AT EYES: Pinpoint pupils LUNGS: symmetric chest rise observed, no adventitious sounds appreciated anteriorly HEART: RRR, pacemaker noted on right chest wall ABDOMEN: +bs, non-distended, no pain response to palpation Extremities: 2+ pulses NEUROLOGICAL: fully obtunded Laboratory Results - last 24 hr 03/10/18 03/10/18 03/10/18 01:22 01:22 01:22 WBC 8.5 RBC 4.14 Hgb 13.6 Hct 39.9 D MCV 96.4 H MCH 32.9 MCHC 34.1 RDW 12.2 Plt Count 184 D MPV 10.5 Absolute Neuts (auto) 5.7 Neutrophils % 66.9 Lymphocytes % 23.9 D Monocytes % 6.1 Eosinophils % 2.3 Basophils % 0.8 Nucleated RBC % 0 PT with INR INR VBG pH POC VBG pCO2 POC VBG pO2 Mixed VBG HCO3 Sodium 141 Potassium 5.2 H Chloride 106 Carbon Dioxide 28 Anion Gap 7 L BUN 25 H Creatinine 1.4 H Creat Clearance w eGFR 35.74 Random Glucose 130 H Calcium 9.7 Total Bilirubin 0.4 AST 33 ALT 25 Alkaline Phosphatase 85 Ammonia Creatine Kinase 58 Troponin I 0.03 Total Protein 7.2 Albumin 3.6 Urine Color Urine Appearance Urine pH Ur Specific [place] Urine Protein Urine Glucose (UA) Urine Ketones Urine Blood Urine Nitrite Urine Bilirubin Urine Urobilinogen Ur Leukocyte Esterase Urine WBC (Auto) Urine RBC (Auto) Urine Mucus Salicylates Opiates Screen Methadone Screen Barbiturate Screen Phencyclidine Screen Ur Amphetamines Screen MDMA (Ecstasy) Screen Benzodiazepines Screen Cocaine Screen U Marijuana (THC) Screen Blood Type Cancelled Antibody Screen Cancelled 03/10/18 03/10/18 03/10/18 01:22 01:22 01:22 WBC RBC Hgb Hct MCV MCH MCHC RDW Plt Count MPV Absolute Neuts (auto) Neutrophils % Lymphocytes % Monocytes % Eosinophils % Basophils % Nucleated RBC % PT with INR INR VBG pH 7.32 POC VBG pCO2 59.0 H POC VBG pO2 41.2 D Mixed VBG HCO3 29.3 H Sodium Potassium Chloride Carbon Dioxide Anion Gap BUN Creatinine Creat Clearance w eGFR Random Glucose Calcium Total Bilirubin AST ALT Alkaline Phosphatase Ammonia 62.2 H Creatine Kinase Troponin I Total Protein Albumin Urine Color Urine Appearance Urine pH Ur Specific [place] Urine Protein Urine Glucose (UA) Urine Ketones Urine Blood Urine Nitrite Urine Bilirubin Urine Urobilinogen Ur Leukocyte Esterase Urine WBC (Auto) Urine RBC (Auto) Urine Mucus Salicylates < 4.0 Opiates Screen Methadone Screen Barbiturate Screen Phencyclidine Screen Ur Amphetamines Screen MDMA (Ecstasy) Screen Benzodiazepines Screen Cocaine Screen U Marijuana (THC) Screen Blood Type Antibody Screen 03/10/18 03/10/18 03/10/18 01:45 03:10 03:10 WBC RBC Hgb Hct MCV MCH MCHC RDW Plt Count MPV Absolute Neuts (auto) Neutrophils % Lymphocytes % Monocytes % Eosinophils % Basophils % Nucleated RBC % PT with INR 11.40 INR 1.01 VBG pH POC VBG pCO2 POC VBG pO2 Mixed VBG HCO3 Sodium Potassium Chloride Carbon Dioxide Anion Gap BUN Creatinine Creat Clearance w eGFR Random Glucose Calcium Total Bilirubin AST ALT Alkaline Phosphatase Ammonia Creatine Kinase Troponin I Total Protein Albumin Urine Color Yellow Urine Appearance Clear Urine pH 6.0 Ur Specific [place] 1.013 Urine Protein Negative Urine Glucose (UA) Negative Urine Ketones Negative Urine Blood Negative Urine Nitrite Negative Urine Bilirubin Negative Urine Urobilinogen Negative Ur Leukocyte Esterase Trace Urine WBC (Auto) 21 Urine RBC (Auto) <1 Urine Mucus Rare Salicylates Opiates Screen Negative Methadone Screen Negative Barbiturate Screen Negative Phencyclidine Screen Negative Ur Amphetamines Screen Negative MDMA (Ecstasy) Screen Negative Benzodiazepines Screen Negative Cocaine Screen Negative U Marijuana (THC) Screen Negative Blood Type Antibody Screen ASSESSMENT/PLAN: 87 y/o F w/ PMHx CHF, COPD on 2L O2, Alzheimer dementia, AL, pacemaker, RA, p/w sudden onset AMS and obtundation since yesterday afternoon #AMS -Head CT: no acute pathology -NH3: 62.2 -INR, LFTs wnl -Narcan drip -1 dose flumazenil -ABG ordered -hicks in place -2LNC -NS @ 100 -UTox ordered -carotid dopplers ordered -echo ordered -Brain MRI w/o ordered #HCM -home aricept and remeron held, other home meds restarted #FEN -NS @ 100 -monitor lytes -NPO #PPX -heparin subq #dispo -admit to ICU Visit type - Emergency Visit Emergency Visit: Yes ED Registration Date: 03/10/18 Care time: The patient presented to the Emergency Department on the above date and was hospitalized for further evaluation of their emergent condition. - New Patient This patient is new to me today: Yes Date on this admission: 03/10/18 - Critical Care Critical Care patient: Yes Total Critical Care Time (in minutes): 35 Critical Care Statement: The care of this patient involved high complexity decision making to prevent further life threatening deterioration of the patient 's condition and/or to evaluate & treat vital organ system(s) failure or risk of failure. Hospitalist Screening - Colonoscopy Questionnaire Colonoscopy Questionnaire: Colonoscopy Questionnaire - Patient: 50 - 75 years old and never had a screening colonoscopy: Unknown History of colon or rectal polyps, or CA: Unknown History of IBD, Crohn's disease or UC: Unknown History of abdominal radiation therapy as a child: Unknown - Relative: 1 with colon or rectal CA, or polyps at age 60 or younger: Unknown Colon or rectal CA diagnosed at age 45 or younger: Unknown Multiple relatives with colon or rectal CA: Unknown - Outcome: Screening Result: Negative Screen
[2018-03-10 04:23] LABS: ARTERIAL BLD GAS O2 SATURATION 63.2 % (90-98.9); ARTERIAL BLOOD GAS PCO2 56.4 mmHg (35-45); ARTERIAL BLOOD GAS pH 7.31 (7.35-7.45); CARBOXYHEMOGLOBIN 1.6 gm% (0.5-2.0)
[2018-03-10 04:26] LABS: ALLENS TEST POSITIVE
[2018-03-10 06:44] LABS: EOS % 2.5 % (0-4.5); HEMATOCRIT 38.6 % (32.4-45.2); HEMOGLOBIN 13.3 GM/dL (10.7-15.3); INR 1.04 (0.82-1.09); LYMPH % 22.7 % (8-40); MCH 33.2 pg (25.7-33.7); MCHC 34.5 g/dl (32.0-36.0); MEAN CELL VOLUME 96.3 fl (80-96); MEAN PLT VOLUME 10.8 fl (7.5-11.1); MONO % 6.8 % (3.8-10.2); PLATELET COUNT 94 K/MM3 (134-434); PROTHROMBIN TIME (PATIENT) 11.7 SEC (9.7-13.0); RDW 11.8 % (11.6-15.6)
--- NOTE | 2018-03-10 06:52 | PN ---
Progress Note (short form) - Note Progress Note: patient slightly more arousable s/p flumazenil and narcan, although utox negative. pupils slightly less pinpoint, equal and reactive to light. abdomen toted to be distended, patient groans to palpation. Ordering KUB+ bladder scan.
[2018-03-10 06:54] LABS: ALBUMIN 2.9 g/dl (3.4-5.0); ANION GAP 7 (8-16); BILIRUBIN,TOTAL 0.3 mg/dL (0.2-1.0); BLOOD UREA NITROGEN 20 mg/dL (7-18); CALCIUM 7.9 mg/dL (8.5-10.1); CHLORIDE 115 mmol/L (98-107); CO2 25 mmol/L (21-32); CREATININE 1.2 mg/dL (0.55-1.02); GLUCOSE,RANDOM 107 mg/dL (74-106); MAGNESIUM 1.8 mg/dL (1.8-2.4); PHOSPHOROUS 2.9 mg/dL (2.5-4.9); POTASSIUM 3.8 mmol/L (3.5-5.1); SGOT/AST 20 U/L (15-37); SGPT/ALT 18 U/L (12-78); SODIUM 147 mmol/L (136-145)
[2018-03-10 07:03] LABS: ALK PHOS 71 U/L (45-117)
[2018-03-10 07:59] LABS: ARTERIAL BLD GAS O2 SATURATION 98.6 % (90-98.9); ARTERIAL BLOOD GAS BASE EXCESS -0.4 meq/l (-2-2); ARTERIAL BLOOD GAS PCO2 49.3 mmHg (35-45); ARTERIAL BLOOD GAS pH 7.33 (7.35-7.45)
[2018-03-10 08:23] LABS: ALLENS TEST POSITIVE
[2018-03-10] MEDS ORDERED: FUROSEMIDE 40 MG/4 ML INJECTABLE VIAL IVPUSH SCH (10:00)
[2018-03-10] MEDS ORDERED: ASPIRIN 81 MG CHEWABLE TABLETS PO SCH (10:00)
[2018-03-10] MEDS ORDERED: ASPIRIN 300 MG SUPP.RECT PR SCH (10:00)
[2018-03-10] MEDS ORDERED: amLODIPine BESYLATE 5 MG TABLET (FP) PO SCH (10:00)
[2018-03-10] MEDS ORDERED: FUROSEMIDE 40 MG TABLET (FP) PO SCH (10:00)
[2018-03-10] MEDS ORDERED: METOPROLOL TARTRATE 5 MG/5 ML VIAL IVPUSH ONE (10:09)
--- NOTE | 2018-03-10 10:13 | EKG ---
Test Reason : Blood Pressure : / mmHG Vent. Rate : 067 BPM Atrial Rate : 067 BPM P-R Int : 176 ms QRS Dur : 174 ms QT Int : 500 ms P-R-T Axes : 061 -72 103 degrees QTc Int : 528 ms AV dual-paced rhythm ABNORMAL ECG WHEN COMPARED WITH ECG OF 21-JAN-2018 00:21, VENT. RATE HAS DECREASED BY 6 BPM Confirmed by DAMARIS RUSSELL MD ([id number]) on 03/10/2018 10:12:35 AM Referred By: Confirmed By:DAMARIS RUSSELL MD
[2018-03-10] MEDS: MEMANTINE HCL 5 MG TABLET (UD) PO SCH (10:24)
[2018-03-10] MEDS: amLODIPine BESYLATE 5 MG TABLET (FP) PO SCH (10:25)
[2018-03-10] MEDS ORDERED: DEXTROSE 5%-0.45% SALINE 1,000 ML IV SCH (10:30)
[2018-03-10] MEDS ORDERED: PT OWN MED DRAWER 7, Y5N ONE (10:30)
[2018-03-10] MEDS: HEPARIN NA (PORCINE) 5,000 UNITS/ML 1ML VIAL SQ SCH ×2 (10:33→19:00)
[2018-03-10] MEDS: MUPIROCIN 2% TOPICAL OINTMENT FOR DECOLONIZATION NS SCH (10:46)
--- NOTE | 2018-03-10 10:46 | PN ---
Teaching Attending Note Name of Resident: Baljit Renteria ATTENDING PHYSICIAN STATEMENT I saw and evaluated the patient. I reviewed the resident's note and discussed the case with the resident. I agree with the resident's findings and plan as documented. SUBJECTIVE: Pt seen and examined in the ICU. Somnolent, poorly responsive. OBJECTIVE: Vital Signs Period Temp Pulse Resp BP Sys/[place] Pulse Ox Last 24 Hr 97.9 F-98.4 F 60-75 12-15 148-180/60-79 100-100 Intake & Output 03/07/18 03/08/18 03/09/18 03/10/18 23:59 23:59 23:59 23:59 Intake Total 200 Output Total 300 Balance -100 Weight 70.307 kg 70.942 kg Gen: somonolent HEENT: pinpoint pupils Heart: RRR Lung: decreased breath sounds at the bases Abd: soft, nontender Ext: no edema CBC, BMP 03/10/18 06:10 03/10/18 06:10 Active Medications Amlodipine Besylate (Norvasc -) 5 mg PO DAILY [facility] Last Admin: 03/10/18 10:25 Dose: Not Given Chlorhexidine Gluconate (Hibiclens For Decolonization -) 1 applic TP HS RAZ Heparin Sodium (Porcine) (Heparin -) 5,000 unit SQ Q8H-IV RAZ Naloxone HCl 2 mg/ Dextrose 500 mls @ 500 mls/hr IV TITR RAZ; Protocol Last Admin: 03/10/18 02:10 Dose: 2 mg/hr, 500 mls/hr Dextrose/Sodium Chloride (D5-1/2ns -) 1,000 mls @ 75 mls/hr IV ASDIR RAZ Memantine (Namenda -) 10 mg PO DAILY RAZ Last Admin: 03/10/18 10:24 Dose: Not Given Mupirocin (Bactroban Ointment (For Decolonization) -) 1 applic NS BID RAZ Stop: 03/15/18 09:59 ASSESSMENT AND PLAN: Altered Mental Status likely from overmedication COPD Chronic Hypoxic Respiratory Failure LV Diastolic Dysfunction Mitral Regurgitation Rheumatoid Arthritis CKD Dementia - hold remeron, aricept - IVF - monitor urine output, creatinine - BP control - NPO - aspiration precautions - DVT prophylaxis - continue ICU monitoring for now critical care time spent in reviewing chart, evaluating patient and formulating plan 35 min
[2018-03-10] MEDS ORDERED: FUROSEMIDE 40 MG/4 ML INJECTABLE VIAL ONE (10:53)
[2018-03-10] MEDS: FUROSEMIDE 40 MG/4 ML INJECTABLE VIAL IVPUSH SCH (11:02)
--- NOTE | 2018-03-10 11:04 | HOSP ---
Subjective - Review of Symptoms Events since last encounter: Responds to noise and falls right back to sleep, as per daughter , patient was started a new medication Remeron , that's when she became unresponsive. Vital Signs Temperature 97.9 F 03/10/18 07:00 Pulse Rate 63 03/10/18 10:46 Respiratory Rate 15 03/10/18 07:00 Blood Pressure 184/64 03/10/18 10:46 O2 Sat by Pulse Oximetry (%) 100 03/10/18 08:05 Lying in bed, responds to noise but ffalls right back to sleep HEENT: No Jaundice, eye redness or discharge, pinpoint pupils, Normocephalic, atraumatic. External ears are normal. Neck: Supple, nontender. No palpable adenopathy or thyromegaly. No JVD Chest: . Clear to auscultation and percussion. Heart: Regular. No S3, rub or murmur Abdomen: Not distended, soft, nontender and no HSM. No rebound or guarding. Normoactive bowel sounds. Ext: Peripheral pulses intact. No leg edema. Skin: Warm and dry. No petechiae, rash or ecchymosis. Neuro: Lethargic. CBCD WBC 8.0 K/mm3 (4.0-10.0) 03/10/18 06:10 RBC 4.00 M/mm3 (3.60-5.2) 03/10/18 06:10 Hgb 13.3 GM/dL (10.7-15.3) 03/10/18 06:10 Hct 38.6 % (32.4-45.2) 03/10/18 06:10 MCV 96.3 fl (80-96) H 03/10/18 06:10 MCHC 34.5 g/dl (32.0-36.0) 03/10/18 06:10 RDW 11.8 % (11.6-15.6) 03/10/18 06:10 Plt Count 94 K/MM3 (134-434) L D 03/10/18 06:10 MPV 10.8 fl (7.5-11.1) 03/10/18 06:10 CMP Sodium 147 mmol/L (136-145) H 03/10/18 06:10 Potassium 3.8 mmol/L (3.5-5.1) 03/10/18 06:10 Chloride 115 mmol/L (98-107) H 03/10/18 06:10 Carbon Dioxide 25 mmol/L (21-32) 03/10/18 06:10 Anion Gap 7 (8-16) L 03/10/18 06:10 BUN 20 mg/dL (7-18) H 03/10/18 06:10 Creatinine 1.2 mg/dL (0.55-1.02) H 03/10/18 06:10 Creat Clearance w eGFR 42.70 (>60) 03/10/18 06:10 Random Glucose 107 mg/dL (74-106) H 03/10/18 06:10 Calcium 7.9 mg/dL (8.5-10.1) L 03/10/18 06:10 Total Bilirubin 0.3 mg/dL (0.2-1.0) 03/10/18 06:10 AST 20 U/L (15-37) 03/10/18 06:10 ALT 18 U/L (12-78) 03/10/18 06:10 Alkaline Phosphatase 71 U/L (45-117) D 03/10/18 06:10 Total Protein 6.0 g/dl (6.4-8.2) L 03/10/18 06:10 Albumin 2.9 g/dl (3.4-5.0) L 03/10/18 06:10 CARDIAC ENZYMES Creatine Kinase 58 IU/L (26-192) 03/10/18 01:22 Troponin I 0.03 ng/ml (0.00-0.05) 03/10/18 01:22 Current Medications Generic Name Dose Route Start Last Admin Trade Name Marciano PRN Reason Stop Dose Admin Amlodipine Besylate 5 mg 03/10/18 10:00 03/10/18 10:25 Norvasc - PO Not Given DAILY RAZ Chlorhexidine Gluconate 1 applic 03/10/18 22:00 Hibiclens For Decolonization - TP HS RAZ Furosemide 20 mg 03/10/18 11:00 03/10/18 11:02 Lasix Injection - IVPUSH 20 mg DAILY RAZ Administration Heparin Sodium (Porcine) 5,000 unit 03/10/18 10:00 03/10/18 10:33 Heparin - SQ 5,000 unit Q8H-IV RAZ Administration Naloxone HCl 2 mg/ Dextrose 500 mls @ 500 mls/hr 03/10/18 01:45 03/10/18 02: 10 IV 2 mg/hr TITR RAZ 500 mls/hr Administration Protocol 2 MG/HR Dextrose/Sodium Chloride 1,000 mls @ 75 mls/hr 03/10/18 10:30 03/10/18 10:45 D5-1/2ns - IV 75 mls/hr ASDIR RAZ Administration Memantine 10 mg 03/10/18 10:00 03/10/18 10:24 Namenda - PO Not Given DAILY RAZ Mupirocin 1 applic 03/10/18 10:00 03/10/18 10:46 Bactroban Ointment (For Decolonization) - NS 03/15/18 09:59 1 applic BID RAZ Administration Home Medications Medication Instructions Recorded Aspirin [ASA -] 81 mg PO DAILY 11/14/17 Memantine HCl [Namenda -] 10 mg PO DAILY 01/21/18 Pravastatin Sodium [Pravachol -] 40 mg PO HS 01/21/18 Amlodipine Besylate [Norvasc -] 5 mg PO DAILY #30 tablet 01/24/18 Furosemide [Lasix] 40 mg PO DAILY #30 tablet 01/24/18 Donepezil HCl [Aricept -] 10 mg PO DAILY 03/10/18 Mirtazapine [Remeron -] 15 mg PO DAILY 03/10/18 Tramadol HCl/Acetaminophen 1 tab PO PRN 03/10/18 [Tramadol-Acetaminophn 37.5-325] A/P: Patient is an 87 year old woman with a significant past medical history of CHF, HTN, HLD, ME, C/S, pacemaker, depression, and dementia, who presents to the emergency department with, altered mental status. # Acute metabolic encephalopathy most likely due to Remeron, continue to monitor in ICU # OPAL - Etiology unclear. Will consult nephrology and avoid nephrotoxic agents such as NSAIDS, aminoglycosides, contrast dyes and certain alternative medicine products. # DVT prophylaxis - Heparin 5000u sq tid. # Advance directives - Full code Physical Examination Vital Signs: Vital Signs Temperature 97.9 F 03/10/18 07:00 Pulse Rate 63 03/10/18 10:46 Respiratory Rate 15 03/10/18 07:00 Blood Pressure 184/64 03/10/18 10:46 O2 Sat by Pulse Oximetry (%) 100 03/10/18 08:05 Labs: CBC, BMP 03/10/18 06:10 03/10/18 06:10
[2018-03-10] MEDS ORDERED: METOPROLOL TARTRATE 5 MG/5 ML VIAL IVPUSH PRN (11:31)
--- NOTE | 2018-03-10 13:16 | CON.GI ---
Consult Consult Specialty:: GI Reason for Consultation:: altered MS elevated amonia - History of Present Illness History of Present Illness: Chart reviewd. Events and consutls noted. Per initial intake: 87 year old female with PMH of CHF, HTN, COPD on home O2 (2L ), HLD, pacemaker, depression, and dementia presents to the ED via ambulance after being found unresponsive in a chair by her family. She was found to have pinpoint pupils and decreased respirations and was given a dose of narcan by EMS which seemed to improved her mental status. She required another dose of narcan in the ED and was placed on a narcan drip at that time. She takes opioids at home for her arthritis pain, but all of her medications are managed carefully by her daughter who states she has not taken the opioid in the last week, and reports that her only new medication is mirtazapine which was started two days ago. When I saw the pt in the ED, she was arousable only to painful stimuli and not able to follow commands or respond to questioning. Family states that even with her dementia, this is much lower than her current baseline. Obtund. Benign abdomina exam with good BS. Non-toxic appearing. Amonia 66 on admission and normal on repeat. 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 Normal coag. profile, transaminases, bili, and ALP. - Past Medical History PATIENT CARE ASSOCIATE: Yes: Dementia Cardio/Vascular: Yes: HTN, Other (ppm) - Alcohol/Substance Use Hx Alcohol Use: No - Smoking History Smoking history: Never smoked Have you smoked in the past 12 months: No Home Medications - Allergies Allergies/Adverse Reactions: Allergies Allergy/AdvReac Type Severity Reaction Status Date / Time No Known Allergies Allergy Verified 03/10/18 00:16 - Home Medications Home Medications: Ambulatory Orders Aspirin [ASA -] 81 mg PO DAILY 11/14/17 Memantine HCl [Namenda -] 10 mg PO DAILY 01/21/18 Pravastatin Sodium [Pravachol -] 40 mg PO HS 01/21/18 Amlodipine Besylate [Norvasc -] 5 mg PO DAILY #30 tablet 01/24/18 Furosemide [Lasix] 40 mg PO DAILY #30 tablet 01/24/18 Donepezil HCl [Aricept -] 10 mg PO DAILY 03/10/18 Mirtazapine [Remeron -] 15 mg PO DAILY 03/10/18 Tramadol HCl/Acetaminophen [Tramadol-Acetaminophn 37.5-325] 1 tab PO PRN Family Disease History - Family Disease History Family History: Unremarkable Review of Systems Findings/Remarks: as per hpi, h&p, ED Physical Exam-GI Vital Signs: Vital Signs Temperature 97.9 F 03/10/18 07:00 Pulse Rate 90 03/10/18 13:00 Respiratory Rate 13 03/10/18 13:00 Blood Pressure 158/71 03/10/18 13:00 O2 Sat by Pulse Oximetry (%) 100 03/10/18 08:05 Labs: CBC, BMP 03/10/18 06:10 03/10/18 06:10 INR, PTT INR 1.04 (0.82-1.09) 03/10/18 06:10 Imaging - Results Cat Scan: Report Reviewed (head) Problem List - Problems (1) Altered mental status Code(s): R41.82 - ALTERED MENTAL STATUS, UNSPECIFIED Qualifiers: Altered mental status type: unspecified Qualified Code(s): R41.82 - Altered mental status, unspecified (2) Hyperammonemia Code(s): E72.20 - DISORDER OF UREA CYCLE METABOLISM, UNSPECIFIED Assessment/Plan No stigmata of liver disease, or infectious process on available blood work results. Do not suspect advanced liver disease/hepatic encephalopathy. Recently started medications are the most likely etiology of acute onset AMS. Care as per ICU team. Will monitor. Discussed with pt's daughter and the nurse.
--- NOTE | 2018-03-10 21:32 | CONSULT ---
Consult - text type - Consultation Consultation Note: NEUROLOGY CONSULTATION is greatly appreciated: Events reviewed and discussed with Dr. Jeremy Renteria, ICU resident. Patient examined. This 87 yo woman lives with her family. PMH sig for: HTN, Chol, depression and dementia. 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 This AM was BIBA as family found her unresponsive at [address] of head (reviewed): Moderately severe, diffuse atrophy with diffuse microvascular changes. No bleed or acute changes. RACHAEL: Neck supple. Neg Kernig's. No bruits. Cor reg. NEURO: Awake, alert, cooperative. Follows simple commands in [place] Cannot give the month, year, or that she is in a hospital + Glabella, snout and grasps (symmetrical) Full robles to threat. No facial. Full EOM's. Gag OK No drift or tremor. Normal strength and reflexes. Downgoing toes. Withdraws all fours to pinch. IMP: Non-focal exam sig for moderately severe, B/L cerebral dysfunction (OMS/ Chronic) most likely Alzheimer's disease. Toxic-metabolic encephalopathy due to high dose drug initiation and histaminergic toxicity. (The starting dose of donepezil is 5 mg for the first month and the appropriate dose of Mirtazepine for this patient is 7.5 mg) SUGGEST: Check B12, TSH, RPR R/O occult infection. Thank you very much, Carlos Willoughby MD
--- NOTE | 2018-03-10 21:52 | PN ---
Physical Exam: SUBJECTIVE: Patient seen and examined this am and evening in icu. Pt resting in bed. Nonresponsive to questions, somnolent. OBJECTIVE: Vital Signs Period Temp Pulse Resp BP Sys/[place] Pulse Ox Last 24 Hr 97.9 F-98.4 F 60-75 12-15 122-184/26-79 100-100 GENERAL: Obtunded. HEAD: NC/AT EYES: Pinpoint. ENT: WNL NECK: supple. LUNGS: Decreased BS at bases HEART: ABDOMEN: Soft, nontender, nondistended, normoactive bowel sounds, no guarding, no rebound, no hepatosplenomegaly, no masses. EXTREMITIES: No CCE NEUROLOGICAL: Unable to observe SKIN: Warm. Laboratory Results - last 24 hr 03/10/18 03/10/18 03/10/18 01:22 01:22 01:22 WBC 8.5 RBC 4.14 Hgb 13.6 Hct 39.9 D MCV 96.4 H MCH 32.9 MCHC 34.1 RDW 12.2 Plt Count 184 D MPV 10.5 Absolute Neuts (auto) 5.7 Neutrophils % 66.9 Lymphocytes % 23.9 D Monocytes % 6.1 Eosinophils % 2.3 Basophils % 0.8 Nucleated RBC % 0 PT with INR INR Anticoagulation Therapy Puncture Site ABG pH ABG pCO2 at Pt Temp ABG pO2 at Pt Temp ABG HCO3 ABG O2 Sat (Measured) ABG O2 Content ABG Base Excess Will Test VBG pH POC VBG pCO2 POC VBG pO2 Mixed VBG HCO3 Carboxyhemoglobin Methemoglobin O2 Delivery Device Oxygen Flow Rate Vent Mode Vent Rate Mechanical Rate Pressure Support Vent Sodium 141 Potassium 5.2 H Chloride 106 Carbon Dioxide 28 Anion Gap 7 L BUN 25 H Creatinine 1.4 H Creat Clearance w eGFR 35.74 Random Glucose 130 H Calcium 9.7 Phosphorus Magnesium Total Bilirubin 0.4 AST 33 ALT 25 Alkaline Phosphatase 85 Ammonia Creatine Kinase 58 Troponin I 0.03 Total Protein 7.2 Albumin 3.6 TSH Urine Color Urine Appearance Urine pH Ur Specific [place] Urine Protein Urine Glucose (UA) Urine Ketones Urine Blood Urine Nitrite Urine Bilirubin Urine Urobilinogen Ur Leukocyte Esterase Urine WBC (Auto) Urine RBC (Auto) Urine Mucus Salicylates Opiates Screen Methadone Screen Barbiturate Screen Phencyclidine Screen Ur Amphetamines Screen MDMA (Ecstasy) Screen Benzodiazepines Screen Cocaine Screen U Marijuana (THC) Screen Blood Type Cancelled Antibody Screen Cancelled 03/10/18 03/10/18 03/10/18 01:22 01:22 01:22 WBC RBC Hgb Hct MCV MCH MCHC RDW Plt Count MPV Absolute Neuts (auto) Neutrophils % Lymphocytes % Monocytes % Eosinophils % Basophils % Nucleated RBC % PT with INR INR Anticoagulation Therapy Puncture Site ABG pH ABG pCO2 at Pt Temp ABG pO2 at Pt Temp ABG HCO3 ABG O2 Sat (Measured) ABG O2 Content ABG Base Excess Will Test VBG pH 7.32 POC VBG pCO2 59.0 H POC VBG pO2 41.2 D Mixed VBG HCO3 29.3 H Carboxyhemoglobin Methemoglobin O2 Delivery Device Oxygen Flow Rate Vent Mode Vent Rate Mechanical Rate Pressure Support Vent Sodium Potassium Chloride Carbon Dioxide Anion Gap BUN Creatinine Creat Clearance w eGFR Random Glucose Calcium Phosphorus Magnesium Total Bilirubin AST ALT Alkaline Phosphatase Ammonia 62.2 H Creatine Kinase Troponin I Total Protein Albumin TSH Urine Color Urine Appearance Urine pH Ur Specific [place] Urine Protein Urine Glucose (UA) Urine Ketones Urine Blood Urine Nitrite Urine Bilirubin Urine Urobilinogen Ur Leukocyte Esterase Urine WBC (Auto) Urine RBC (Auto) Urine Mucus Salicylates < 4.0 Opiates Screen Methadone Screen Barbiturate Screen Phencyclidine Screen Ur Amphetamines Screen MDMA (Ecstasy) Screen Benzodiazepines Screen Cocaine Screen U Marijuana (THC) Screen Blood Type Antibody Screen 03/10/18 03/10/18 03/10/18 01:45 03:10 03:10 WBC RBC Hgb Hct MCV MCH MCHC RDW Plt Count MPV Absolute Neuts (auto) Neutrophils % Lymphocytes % Monocytes % Eosinophils % Basophils % Nucleated RBC % PT with INR 11.40 INR 1.01 Anticoagulation Therapy Puncture Site ABG pH ABG pCO2 at Pt Temp ABG pO2 at Pt Temp ABG HCO3 ABG O2 Sat (Measured) ABG O2 Content ABG Base Excess Will Test VBG pH POC VBG pCO2 POC VBG pO2 Mixed VBG HCO3 Carboxyhemoglobin Methemoglobin O2 Delivery Device Oxygen Flow Rate Vent Mode Vent Rate Mechanical Rate Pressure Support Vent Sodium Potassium Chloride Carbon Dioxide Anion Gap BUN Creatinine Creat Clearance w eGFR Random Glucose Calcium Phosphorus Magnesium Total Bilirubin AST ALT Alkaline Phosphatase Ammonia Creatine Kinase Troponin I Total Protein Albumin TSH Urine Color Yellow Urine Appearance Clear Urine pH 6.0 Ur Specific [place] 1.013 Urine Protein Negative Urine Glucose (UA) Negative Urine Ketones Negative Urine Blood Negative Urine Nitrite Negative Urine Bilirubin Negative Urine Urobilinogen Negative Ur Leukocyte Esterase Trace Urine WBC (Auto) 21 Urine RBC (Auto) <1 Urine Mucus Rare Salicylates Opiates Screen Negative Methadone Screen Negative Barbiturate Screen Negative Phencyclidine Screen Negative Ur Amphetamines Screen Negative MDMA (Ecstasy) Screen Negative Benzodiazepines Screen Negative Cocaine Screen Negative U Marijuana (THC) Screen Negative Blood Type Antibody Screen 03/10/18 03/10/18 03/10/18 04:10 06:10 06:10 WBC 8.0 RBC 4.00 Hgb 13.3 Hct 38.6 MCV 96.3 H MCH 33.2 MCHC 34.5 RDW 11.8 Plt Count 94 L D MPV 10.8 Absolute Neuts (auto) 5.4 Neutrophils % 67.0 Lymphocytes % 22.7 Monocytes % 6.8 Eosinophils % 2.5 Basophils % 1.0 Nucleated RBC % 0 PT with INR 11.70 INR 1.04 Anticoagulation Therapy No Result Required. Puncture Site Right radial ABG pH 7.31 L ABG pCO2 at Pt Temp 56.4 H ABG pO2 at Pt Temp 35.0 L* ABG HCO3 27.7 H ABG O2 Sat (Measured) 63.2 L* ABG O2 Content 10.9 L ABG Base Excess 1.0 Will Test Positive VBG pH POC VBG pCO2 POC VBG pO2 Mixed VBG HCO3 Carboxyhemoglobin 1.6 Methemoglobin 1.6 H O2 Delivery Device Nasal Oxygen Flow Rate 3l Vent Mode No Result Required. Vent Rate No Result Required. Mechanical Rate No Result Required. Pressure Support Vent No Result Required. Sodium Potassium Chloride Carbon Dioxide Anion Gap BUN Creatinine Creat Clearance w eGFR Random Glucose Calcium Phosphorus Magnesium Total Bilirubin AST ALT Alkaline Phosphatase Ammonia Creatine Kinase Troponin I Total Protein Albumin TSH Urine Color Urine Appearance Urine pH Ur Specific [place] Urine Protein Urine Glucose (UA) Urine Ketones Urine Blood Urine Nitrite Urine Bilirubin Urine Urobilinogen Ur Leukocyte Esterase Urine WBC (Auto) Urine RBC (Auto) Urine Mucus Salicylates Opiates Screen Methadone Screen Barbiturate Screen Phencyclidine Screen Ur Amphetamines Screen MDMA (Ecstasy) Screen Benzodiazepines Screen Cocaine Screen U Marijuana (THC) Screen Blood Type Antibody Screen 03/10/18 03/10/18 03/10/18 06:10 07:50 09:00 WBC RBC Hgb Hct MCV MCH MCHC RDW Plt Count MPV Absolute Neuts (auto) Neutrophils % Lymphocytes % Monocytes % Eosinophils % Basophils % Nucleated RBC % PT with INR INR Anticoagulation Therapy Puncture Site Right radial ABG pH 7.33 L ABG pCO2 at Pt Temp 49.3 H ABG pO2 at Pt Temp 112.0 H D ABG HCO3 25.5 ABG O2 Sat (Measured) 98.6 ABG O2 Content 17.4 ABG Base Excess -0.4 Will Test Positive VBG pH POC VBG pCO2 POC VBG pO2 Mixed VBG HCO3 Carboxyhemoglobin Methemoglobin O2 Delivery Device Nasal Oxygen Flow Rate 3l Vent Mode Vent Rate Mechanical Rate Pressure Support Vent Sodium 147 H Potassium 3.8 Chloride 115 H Carbon Dioxide 25 Anion Gap 7 L BUN 20 H Creatinine 1.2 H Creat Clearance w eGFR 42.70 Random Glucose 107 H Calcium 7.9 L Phosphorus 2.9 Magnesium 1.8 Total Bilirubin 0.3 AST 20 ALT 18 Alkaline Phosphatase 71 D Ammonia 22.17 Creatine Kinase Troponin I Total Protein 6.0 L Albumin 2.9 L TSH 0.92 Urine Color Urine Appearance Urine pH Ur Specific [place] Urine Protein Urine Glucose (UA) Urine Ketones Urine Blood Urine Nitrite Urine Bilirubin Urine Urobilinogen Ur Leukocyte Esterase Urine WBC (Auto) Urine RBC (Auto) Urine Mucus Salicylates Opiates Screen Methadone Screen Barbiturate Screen Phencyclidine Screen Ur Amphetamines Screen MDMA (Ecstasy) Screen Benzodiazepines Screen Cocaine Screen U Marijuana (THC) Screen Blood Type Antibody Screen Active Medications Generic Name Dose Route Start Last Admin Trade Name Freq PRN Reason Stop Dose Admin Amlodipine Besylate 5 mg 03/10/18 10:00 03/10/18 10:25 Norvasc - PO Not Given DAILY RAZ Chlorhexidine Gluconate 1 applic 03/10/18 22:00 Hibiclens For Decolonization - TP HS RAZ Furosemide 20 mg 03/10/18 11:00 03/10/18 11:02 Lasix Injection - IVPUSH 20 mg DAILY RAZ Administration Heparin Sodium (Porcine) 5,000 unit 03/10/18 10:00 03/10/18 19:00 Heparin - SQ 5,000 unit Q8H-IV RAZ Administration Naloxone HCl 2 mg/ Dextrose 500 mls @ 500 mls/hr 03/10/18 01:45 03/10/18 02: 10 IV 2 mg/hr TITR RAZ 500 mls/hr Administration Protocol 2 MG/HR Dextrose/Sodium Chloride 1,000 mls @ 75 mls/hr 03/10/18 10:30 03/10/18 10:45 D5-1/2ns - IV 75 mls/hr ASDIR RAZ Administration Memantine 10 mg 03/10/18 10:00 03/10/18 10:24 Namenda - PO Not Given DAILY RAZ Metoprolol Tartrate 5 mg 03/10/18 11:31 Lopressor Injection - IVPUSH Q4H PRN HYPERTENSION Mupirocin 1 applic 03/10/18 10:00 03/10/18 10:46 Bactroban Ointment (For Decolonization) - NS 03/15/18 09:59 1 applic BID RAZ Administration ASSESSMENT/PLAN: 87 y/o lady with PMH of CHF, HTN, COPD on home O2 (2L), HLD, pacemaker, depression, and dementia presents to the ED via ambulance after being found unresponsive in a chair by her family. Neuro Altered Mental Status most likely 2/[address] of head (reviewed with Dr Willoughby): Moderately severe, diffuse atrophy with diffuse microvascular changes. No bleed or acute changes X-RAY Abdomen- Non specific bowel gas pattern with air-fluid colon . Naloxone HCl 2 mg/ Dextrose 500 mls/hr Withold Remeron and Aricept Neurology Dr Willoughby on board---> Toxic-metabolic encephalopathy due to high dose drug initiation and histaminergic toxicity. Non-focal exam sig for moderately severe, B/L cerebral dysfunction (OMS/Chronic) most likely Alzheimer' s disease. per Dr Willoughby-----> Check B12, TSH, RPR R/O occult infection. G.I Ammonia 62.2, repeat 22.17. G.I on board Dr Amin. Does not suspect advanced liver disease/hepatic encephalopathy. No longer receiving lactulose. Elevated ammonia level unlikely related to GI bleed Renal Acute Kidney Injury BUN/CR 20/1.2 Avoid nephrotoxic agents such as aminoglycosides, NSAIDS, and contrast dyes. Metoprolol Tartrate 5 mg IVPUSH Q4H PRN FEN D5 1/2 NS Monitor electrolytes NPO DVT ppx: Heparin 5,000 U SQ dispo: continue to monitor in icu. Visit type - Emergency Visit Emergency Visit: Yes ED Registration Date: 03/10/18 Care time: The patient presented to the Emergency Department on the above date and was hospitalized for further evaluation of their emergent condition. - New Patient This patient is new to me today: Yes Date on this admission: 03/10/18 - Critical Care Critical Care patient: Yes Total Critical Care Time (in minutes): 35 Critical Care Statement: The care of this patient involved high complexity decision making to prevent further life threatening deterioration of the patient 's condition and/or to evaluate & treat vital organ system(s) failure or risk of failure.
[2018-03-10] MEDS ORDERED: ATORVASTATIN CA 10 MG TABLET (FP) PO SCH (22:00)
[2018-03-10] MEDS ORDERED: CHLORHEXIDINE GLUCONATE 4% CLEANSER FOR DECOLONIZATION TP SCH (22:00)
[2018-03-11] MEDS: HEPARIN NA (PORCINE) 5,000 UNITS/ML 1ML VIAL SQ SCH ×3 (01:49→17:46)
[2018-03-11] MEDS: NALOXONE HCL 2 MG in DEXTROSE 5%-WATER - 495 ML IV SCH (05:38)
[2018-03-11 06:02] LABS: BASO % 0.9 % (0-2.0); EOS % 3.1 % (0-4.5); HEMATOCRIT 35.7 % (32.4-45.2); HEMOGLOBIN 12.4 GM/dL (10.7-15.3); LYMPH % 22.4 % (8-40); MCHC 34.7 g/dl (32.0-36.0); MEAN PLT VOLUME 9.8 fl (7.5-11.1); MONO % 5.8 % (3.8-10.2); NEUT % 67.8 % (42.8-82.8); PLATELET COUNT 155 K/MM3 (134-434); RBC 3.76 M/mm3 (3.60-5.2); WHITE BLOOD COUNT 7.4 K/mm3 (4.0-10.0)
[2018-03-11 06:53] LABS: ALBUMIN 3.1 g/dl (3.4-5.0); ALK PHOS 84 U/L (45-117); ANION GAP 6 (8-16); BILIRUBIN,TOTAL 0.3 mg/dL (0.2-1.0); BLOOD UREA NITROGEN 16 mg/dL (7-18); CALCIUM 8.7 mg/dL (8.5-10.1); CHLORIDE 109 mmol/L (98-107); CO2 28 mmol/L (21-32); CREATININE 1.1 mg/dL (0.55-1.02); GLUCOSE,RANDOM 123 mg/dL (74-106); MAGNESIUM 1.8 mg/dL (1.8-2.4); PHOSPHOROUS 3.3 mg/dL (2.5-4.9); SGOT/AST 18 U/L (15-37); SGPT/ALT 17 U/L (12-78); SODIUM 143 mmol/L (136-145); TOT PROT 6.1 g/dl (6.4-8.2)
--- NOTE | 2018-03-11 08:22 | PN ---
Physical Exam: SUBJECTIVE: Pt initially here for unresponsiveness thought to be from her new medication. Pt today is responsive in Ecuadorean and reports feelings okay. She states she's very hungry. Denies any chest pain, shortness of breath or abdominal pain currently. OBJECTIVE: Vital Signs Period Temp Pulse Resp BP Sys/Childress Pulse Ox Last 24 Hr 97.8 F-98.0 F 60-72 13-20 122-184/26-91 100-100 GENERAL: NAD, awake, alert, oriented x2 (to herself and place, not time) HEENT: NC/AT, EOMI, KEL[place], dry-moist mucosa LUNGS: CTA bilaterally, no wheezes, no crackles, no accessory muscle use. HEART: RRR, S1, S2 without murmur, ABDOMEN: Soft, NT/ND, normoactive bowel sounds, no guarding EXTREMITIES: 2+ DP pulses, warm, no edema. NEUROLOGICAL: Nonfocal exam. Symmetrical strength throughout. PSYCH: Normal mood, normal affect. SKIN: Warm, dry, normal turgor, no rashes or lesions noted Laboratory Results - last 24 hr 03/10/18 03/10/18 03/11/18 07:50 09:00 05:30 WBC 7.4 RBC 3.76 Hgb 12.4 Hct 35.7 MCV 95.0 MCH 33.0 MCHC 34.7 RDW 12.0 Plt Count 155 D MPV 9.8 Absolute Neuts (auto) 5.0 Neutrophils % 67.8 Lymphocytes % 22.4 Monocytes % 5.8 Eosinophils % 3.1 Basophils % 0.9 Nucleated RBC % 0 Puncture Site Right radial ABG pH 7.33 L ABG pCO2 at Pt Temp 49.3 H ABG pO2 at Pt Temp 112.0 H D ABG HCO3 25.5 ABG O2 Sat (Measured) 98.6 ABG O2 Content 17.4 ABG Base Excess -0.4 Will Test Positive O2 Delivery Device Nasal Oxygen Flow Rate 3l Sodium Potassium Chloride Carbon Dioxide Anion Gap BUN Creatinine Creat Clearance w eGFR Random Glucose Calcium Phosphorus Magnesium Total Bilirubin AST ALT Alkaline Phosphatase Ammonia 22.17 Total Protein Albumin 03/11/18 05:30 WBC RBC Hgb Hct MCV MCH MCHC RDW Plt Count MPV Absolute Neuts (auto) Neutrophils % Lymphocytes % Monocytes % Eosinophils % Basophils % Nucleated RBC % Puncture Site ABG pH ABG pCO2 at Pt Temp ABG pO2 at Pt Temp ABG HCO3 ABG O2 Sat (Measured) ABG O2 Content ABG Base Excess Will Test O2 Delivery Device Oxygen Flow Rate Sodium 143 Potassium 4.0 Chloride 109 H Carbon Dioxide 28 Anion Gap 6 L BUN 16 Creatinine 1.1 H Creat Clearance w eGFR 47.21 Random Glucose 123 H Calcium 8.7 Phosphorus 3.3 Magnesium 1.8 Total Bilirubin 0.3 AST 18 ALT 17 Alkaline Phosphatase 84 D Ammonia Total Protein 6.1 L Albumin 3.1 L Active Medications Generic Name Dose Route Start Last Admin Trade Name Freq PRN Reason Stop Dose Admin Amlodipine Besylate 5 mg 03/10/18 10:00 03/10/18 10:25 Norvasc - PO Not Given DAILY RAZ Chlorhexidine Gluconate 1 applic 03/10/18 22:00 03/11/18 00:00 Hibiclens For Decolonization - TP 1 applic HS RAZ Administration Furosemide 20 mg 03/10/18 11:00 03/10/18 11:02 Lasix Injection - IVPUSH 20 mg DAILY RAZ Administration Heparin Sodium (Porcine) 5,000 unit 03/10/18 10:00 03/11/18 01:49 Heparin - SQ 5,000 unit Q8H-IV RAZ Administration Dextrose/Sodium Chloride 1,000 mls @ 75 mls/hr 03/10/18 10:30 03/10/18 10:45 D5-1/2ns - IV 75 mls/hr ASDIR RAZ Administration Memantine 10 mg 03/10/18 10:00 03/10/18 10:24 Namenda - PO Not Given DAILY RAZ Metoprolol Tartrate 5 mg 03/10/18 11:31 03/10/18 20:52 Lopressor Injection - IVPUSH 5 mg Q4H PRN Administration HYPERTENSION Mupirocin 1 applic 03/10/18 10:00 03/11/18 00:00 Bactroban Ointment (For Decolonization) - NS 03/15/18 09:59 1 applic BID RAZ Administration ASSESSMENT/PLAN: Neuro: Altered mental status --2/2 to overmedicated --Markedly improved today; oriented x2 in Ecuadorean --Will likely see improvement over next day --Neurology on board Dementia: --Continue Memantine 10mg qDaily only Respiratory: COPD --Maintain oxygen supplementation for SpO2 88-93% --Not in exacerbation or distress currently Cardiac: HTN --Continue Norvasc 5mg qDaily --Lopressor 5mg IVP q4h PRN for HTN --Normotensive at the current moment Endocrine: ? DM: --Will add-on A1c due to pt's family reporting recent office lab was normal --Rpt showing 5.7% (improvement from January however still pre-diabetic) --Maintain proper diet only FEN: Fluids: Discontinue fluids as we advance diet Electrolyte abnormalities: None currently Nutrition: Soft diabetic diet PPX: DVT - Heparin SQ TID Dispo: Transfer to /S Case discussed with Dr. Dylon Gonzales, DO - IM PGY-2 Visit type - Emergency Visit Emergency Visit: No - New Patient This patient is new to me today: No - Critical Care Critical Care patient: Yes Total Critical Care Time (in minutes): 35 Critical Care Statement: The care of this patient involved high complexity decision making to prevent further life threatening deterioration of the patient 's condition and/or to evaluate & treat vital organ system(s) failure or risk of failure.
--- NOTE | 2018-03-11 09:52 | PN ---
Teaching Attending Note Name of Resident: Thomas Gonzales ATTENDING PHYSICIAN STATEMENT I saw and evaluated the patient. I reviewed the resident's note and discussed the case with the resident. I agree with the resident's findings and plan as documented. SUBJECTIVE: Pt seen and examined in the ICU. Mental status improved. No specific complaints. OBJECTIVE: Vital Signs Period Temp Pulse Resp BP Sys/Childress Pulse Ox Last 24 Hr 97.8 F-98.0 F 60-72 13-20 122-184/26-91 100-100 Intake & Output 03/08/18 03/09/18 03/10/18 03/11/18 23:59 23:59 23:59 23:59 Intake Total 975 900 Output Total 2100 500 Balance -1125 400 Weight 70.307 kg 70.942 kg 69.9 kg Gen: NAD at rest Heart: RRR Lung: decreased breath sounds at the bases Abd: soft, nontender Ext: no edema CBC, BMP 03/11/18 05:30 03/11/18 05:30 Active Medications Amlodipine Besylate (Norvasc -) 5 mg PO DAILY [facility] Last Admin: 03/10/18 10:25 Dose: Not Given Chlorhexidine Gluconate (Hibiclens For Decolonization -) 1 applic TP HS [facility] Last Admin: 03/11/18 00:00 Dose: 1 applic Furosemide (Lasix Injection -) 20 mg IVPUSH DAILY [facility] Last Admin: 03/10/18 11:02 Dose: 20 mg Heparin Sodium (Porcine) (Heparin -) 5,000 unit SQ Q8H-IV RAZ Last Admin: 03/11/18 01:49 Dose: 5,000 unit Memantine (Namenda -) 10 mg PO DAILY [facility] Last Admin: 03/10/18 10:24 Dose: Not Given Metoprolol Tartrate (Lopressor Injection -) 5 mg IVPUSH Q4H PRN PRN Reason: HYPERTENSION Last Admin: 03/10/18 20:52 Dose: 5 mg Mupirocin (Bactroban Ointment (For Decolonization) -) 1 applic NS BID [facility] Stop: 03/15/18 09:59 Last Admin: 03/11/18 00:00 Dose: 1 applic ASSESSMENT AND PLAN: Altered Mental Status likely from overmedication COPD Chronic Hypoxic Respiratory Failure LV Diastolic Dysfunction Mitral Regurgitation Rheumatoid Arthritis CKD Dementia - hold remeron, aricept - monitor urine output, creatinine - BP control - PO as tolerated - d/c IVF if tolerating PO - aspiration precautions - DVT prophylaxis - can monitor on floor
[2018-03-11] MEDS ORDERED: PT OWN MED DRAWER 7, Y5N ONE (09:53)
[2018-03-11] MEDS: FUROSEMIDE 40 MG/4 ML INJECTABLE VIAL IVPUSH SCH (09:54)
[2018-03-11] MEDS: MEMANTINE HCL 5 MG TABLET (UD) PO SCH (09:55)
[2018-03-11] MEDS: amLODIPine BESYLATE 5 MG TABLET (FP) PO SCH (09:56)
[2018-03-11] MEDS: MUPIROCIN 2% TOPICAL OINTMENT FOR DECOLONIZATION NS SCH ×2 (09:56)
[2018-03-11] MEDS ORDERED: INSULIN SLIDING SCALE (NOVOLOG) 1 VIAL SQ SCH (16:30)
[2018-03-11] MEDS ORDERED: METOPROLOL TARTRATE 5 MG/5 ML VIAL IVPUSH PRN (18:04)
--- NOTE | 2018-03-11 18:47 | PN ---
Progress Note (short form) - Note Progress Note: Awake and Alert today Vital Signs - 24 hr 03/10/18 03/10/18 03/10/18 19:00 20:00 20:14 Temperature Pulse Rate 60 60 Respiratory 14 15 Rate Blood Pressure 122/26 151/72 O2 Sat by Pulse 100 Oximetry (%) 03/10/18 03/10/18 03/10/18 20:30 20:52 21:00 Temperature Pulse Rate 60 60 60 Respiratory 16 17 Rate Blood Pressure 180/66 180/66 169/66 O2 Sat by Pulse Oximetry (%) 03/10/18 03/11/18 03/11/18 22:00 00:00 00:01 Temperature 98.0 F Pulse Rate 60 60 Respiratory 16 15 Rate Blood Pressure 151/91 166/70 O2 Sat by Pulse 100 Oximetry (%) 03/11/18 03/11/18 03/11/18 02:00 04:00 06:00 Temperature 97.8 F 97.8 F Pulse Rate 60 60 60 Respiratory 15 18 20 Rate Blood Pressure 160/62 160/65 159/72 O2 Sat by Pulse Oximetry (%) 03/11/18 03/11/18 03/11/18 08:00 08:22 10:00 Temperature Pulse Rate 60 60 Respiratory 16 17 Rate Blood Pressure 169/69 171/62 O2 Sat by Pulse 100 Oximetry (%) 03/11/18 03/11/18 03/11/18 12:00 14:00 16:00 Temperature 98 F Pulse Rate 60 60 60 Respiratory 17 20 14 Rate Blood Pressure 159/69 147/58 129/62 O2 Sat by Pulse Oximetry (%) 03/11/18 18:00 Temperature Pulse Rate 68 Respiratory 19 Rate Blood Pressure 143/96 O2 Sat by Pulse Oximetry (%) Laboratory Last Values WBC 7.4 K/mm3 (4.0-10.0) 03/11/18 05:30 RBC 3.76 M/mm3 (3.60-5.2) 03/11/18 05:30 Hgb 12.4 GM/dL (10.7-15.3) 03/11/18 05:30 Hct 35.7 % (32.4-45.2) 03/11/18 05:30 MCV 95.0 fl (80-96) 03/11/18 05:30 MCH 33.0 pg (25.7-33.7) 03/11/18 05:30 MCHC 34.7 g/dl (32.0-36.0) 03/11/18 05:30 RDW 12.0 % (11.6-15.6) 03/11/18 05:30 Plt Count 155 K/MM3 (134-434) D 03/11/18 05:30 MPV 9.8 fl (7.5-11.1) 03/11/18 05:30 Absolute Neuts (auto) 5.0 # 03/11/18 05:30 Neutrophils % 67.8 % (42.8-82.8) 03/11/18 05:30 Lymphocytes % 22.4 % (8-40) 03/11/18 05:30 Monocytes % 5.8 % (3.8-10.2) 03/11/18 05:30 Eosinophils % 3.1 % (0-4.5) 03/11/18 05:30 Basophils % 0.9 % (0-2.0) 03/11/18 05:30 Nucleated RBC % 0 % (0-0) 03/11/18 05:30 PT with INR 11.70 SEC (9.7-13.0) 03/10/18 06:10 INR 1.04 (0.82-1.09) 03/10/18 06:10 Anticoagulation Therapy No Result Required. 03/10/18 04:10 Puncture Site Right radial 03/10/18 07:50 ABG pH 7.33 (7.35-7.45) L 03/10/18 07:50 ABG pCO2 at Pt Temp 49.3 mmHg (35-45) H 03/10/18 07:50 ABG pO2 at Pt Temp 112.0 mmHg (68-100) H D 03/10/18 07:50 ABG HCO3 25.5 meq/L (22-26) 03/10/18 07:50 ABG O2 Sat (Measured) 98.6 % (90-98.9) 03/10/18 07:50 ABG O2 Content 17.4 % vol (15-22) 03/10/18 07:50 ABG Base Excess -0.4 meq/l (-2-2) 03/10/18 07:50 Will Test Positive 03/10/18 07:50 VBG pH 7.32 (7.32-7.42) 03/10/18 01:22 POC VBG pCO2 59.0 mmHg (38-52) H 03/10/18 01:22 POC VBG pO2 41.2 mmHg (28-48) D 03/10/18 01:22 Mixed VBG HCO3 29.3 meq/L (19-25) H 03/10/18 01:22 Carboxyhemoglobin 1.6 gm% (0.5-2.0) 03/10/18 04:10 Methemoglobin 1.6 % (0.4-1.5) H 03/10/18 04:10 O2 Delivery Device Nasal 03/10/18 07:50 Oxygen Flow Rate 3l 03/10/18 07:50 Vent Mode No Result Required. 03/10/18 04:10 Vent Rate No Result Required. 03/10/18 04:10 Mechanical Rate No Result Required. 03/10/18 04:10 Pressure Support Vent No Result Required. 03/10/18 04:10 Sodium 143 mmol/L (136-145) 03/11/18 05:30 Potassium 4.0 mmol/L (3.5-5.1) 03/11/18 05:30 Chloride 109 mmol/L (98-107) H 03/11/18 05:30 Carbon Dioxide 28 mmol/L (21-32) 03/11/18 05:30 Anion Gap 6 (8-16) L 03/11/18 05:30 BUN 16 mg/dL (7-18) 03/11/18 05:30 Creatinine 1.1 mg/dL (0.55-1.02) H 03/11/18 05:30 Creat Clearance w eGFR 47.21 (>60) 03/11/18 05:30 Random Glucose 123 mg/dL (74-106) H 03/11/18 05:30 Hemoglobin A1c % 5.7 % (4.8-6.0) 03/11/18 05:30 Calcium 8.7 mg/dL (8.5-10.1) 03/11/18 05:30 Phosphorus 3.3 mg/dL (2.5-4.9) 03/11/18 05:30 Magnesium 1.8 mg/dL (1.8-2.4) 03/11/18 05:30 Total Bilirubin 0.3 mg/dL (0.2-1.0) 03/11/18 05:30 AST 18 U/L (15-37) 03/11/18 05:30 ALT 17 U/L (12-78) 03/11/18 05:30 Alkaline Phosphatase 84 U/L (45-117) D 03/11/18 05:30 Ammonia 22.17 umol/L (11-32) 03/10/18 09:00 Creatine Kinase 58 IU/L (26-192) 03/10/18 01:22 Troponin I 0.03 ng/ml (0.00-0.05) 03/10/18 01:22 Total Protein 6.1 g/dl (6.4-8.2) L 03/11/18 05:30 Albumin 3.1 g/dl (3.4-5.0) L 03/11/18 05:30 TSH 0.92 uIU/ml (0.358-3.74) 03/10/18 06:10 Urine Color Yellow 03/10/18 03:10 Urine Appearance Clear 03/10/18 03:10 Urine pH 6.0 (5.0-8.0) 03/10/18 03:10 Ur Specific Orion 1.013 (1.001-1.035) 03/10/18 03:10 Urine Protein Negative (NEGATIVE) 03/10/18 03:10 Urine Glucose (UA) Negative (NEGATIVE) 03/10/18 03:10 Urine Ketones Negative (NEGATIVE) 03/10/18 03:10 Urine Blood Negative (NEGATIVE) 03/10/18 03:10 Urine Nitrite Negative (NEGATIVE) 03/10/18 03:10 Urine Bilirubin Negative (<2.0 mg/dL) 03/10/18 03:10 Urine Urobilinogen Negative mg/dL (0.2-1.0) 03/10/18 03:10 Ur Leukocyte Esterase Trace (NEGATIVE) 03/10/18 03:10 Urine WBC (Auto) 21 /hpf (3-5) 03/10/18 03:10 Urine RBC (Auto) <1 /hpf (0-3) 03/10/18 03:10 Urine Mucus Rare 03/10/18 03:10 Salicylates < 4.0 mg/dL 03/10/18 01:22 Opiates Screen Negative ng/ml (ZELUAR=940) 03/10/18 03:10 Methadone Screen Negative ng/ml (CSTEUG=139) 03/10/18 03:10 Barbiturate Screen Negative ng/ml (GJUVMP=056) 03/10/18 03:10 Phencyclidine Screen Negative ng/ml (CUTOFF=25) 03/10/18 03:10 Ur Amphetamines Screen Negative ng/ml (IPBZCO=040) 03/10/18 03:10 MDMA (Ecstasy) Screen Negative ng/ml (DAYSGC=342) 03/10/18 03:10 Benzodiazepines Screen Negative ng/ml (URFHUU=639) 03/10/18 03:10 Cocaine Screen Negative ng/ml (SJFFDD=161) 03/10/18 03:10 U Marijuana (THC) Screen Negative ng/ml (CUTOFF=50) 03/10/18 03:10 Blood Type Cancelled 03/10/18 01:22 Antibody Screen Cancelled 03/10/18 01:22 Problem List - Problems (1) Altered mental status Code(s): R41.82 - ALTERED MENTAL STATUS, UNSPECIFIED Qualifiers: Altered mental status type: unspecified Qualified Code(s): R41.82 - Altered mental status, unspecified (2) Hyperammonemia Code(s): E72.20 - DISORDER OF UREA CYCLE METABOLISM, UNSPECIFIED
--- NOTE | 2018-03-11 19:21 | PN ---
Progress Note (short form) - Note Progress Note: Patient is awake today , responsive Vital Signs Temperature 98 F 03/11/18 14:00 Pulse Rate 68 03/11/18 18:00 Respiratory Rate 19 03/11/18 18:00 Blood Pressure 143/96 03/11/18 18:00 O2 Sat by Pulse Oximetry (%) 100 03/11/18 08:22 Lying in bed, responds to noise but ffalls right back to sleep HEENT: No Jaundice, eye redness or discharge, pinpoint pupils, Normocephalic, atraumatic. External ears are normal. Neck: Supple, nontender. No palpable adenopathy or thyromegaly. No JVD Chest: . Clear to auscultation and percussion. Heart: Regular. No S3, rub or murmur Abdomen: Not distended, soft, nontender and no HSM. No rebound or guarding. Normoactive bowel sounds. Ext: Peripheral pulses intact. No leg edema. Skin: Warm and dry. No petechiae, rash or ecchymosis. Neuro: Lethargic. CBCD WBC 7.4 K/mm3 (4.0-10.0) 03/11/18 05:30 RBC 3.76 M/mm3 (3.60-5.2) 03/11/18 05:30 Hgb 12.4 GM/dL (10.7-15.3) 03/11/18 05:30 Hct 35.7 % (32.4-45.2) 03/11/18 05:30 MCV 95.0 fl (80-96) 03/11/18 05:30 MCHC 34.7 g/dl (32.0-36.0) 03/11/18 05:30 RDW 12.0 % (11.6-15.6) 03/11/18 05:30 Plt Count 155 K/MM3 (134-434) D 03/11/18 05:30 MPV 9.8 fl (7.5-11.1) 03/11/18 05:30 CMP Sodium 143 mmol/L (136-145) 03/11/18 05:30 Potassium 4.0 mmol/L (3.5-5.1) 03/11/18 05:30 Chloride 109 mmol/L (98-107) H 03/11/18 05:30 Carbon Dioxide 28 mmol/L (21-32) 03/11/18 05:30 Anion Gap 6 (8-16) L 03/11/18 05:30 BUN 16 mg/dL (7-18) 03/11/18 05:30 Creatinine 1.1 mg/dL (0.55-1.02) H 03/11/18 05:30 Creat Clearance w eGFR 47.21 (>60) 03/11/18 05:30 Random Glucose 123 mg/dL (74-106) H 03/11/18 05:30 Calcium 8.7 mg/dL (8.5-10.1) 03/11/18 05:30 Total Bilirubin 0.3 mg/dL (0.2-1.0) 03/11/18 05:30 AST 18 U/L (15-37) 03/11/18 05:30 ALT 17 U/L (12-78) 03/11/18 05:30 Alkaline Phosphatase 84 U/L (45-117) D 03/11/18 05:30 Total Protein 6.1 g/dl (6.4-8.2) L 03/11/18 05:30 Albumin 3.1 g/dl (3.4-5.0) L 03/11/18 05:30 CARDIAC ENZYMES Creatine Kinase 58 IU/L (26-192) 03/10/18 01:22 Troponin I 0.03 ng/ml (0.00-0.05) 03/10/18 01:22 Current Medications Generic Name Dose Route Start Last Admin Trade Name Marciano PRN Reason Stop Dose Admin Amlodipine Besylate 5 mg 03/12/18 10:00 Norvasc - PO DAILY RAZ Furosemide 20 mg 03/12/18 10:00 Lasix Injection - IVPUSH DAILY [facility] Heparin Sodium (Porcine) 5,000 unit 03/12/18 06:00 Heparin - SQ TID RAZ Memantine 10 mg 03/12/18 10:00 Namenda - PO DAILY [facility] Metoprolol Tartrate 5 mg 03/11/18 18:04 Lopressor Injection - IVPUSH Q4H PRN HYPERTENSION Home Medications Medication Instructions Recorded Aspirin [ASA -] 81 mg PO DAILY 11/14/17 Memantine HCl [Namenda -] 10 mg PO DAILY 01/21/18 Pravastatin Sodium [Pravachol -] 40 mg PO HS 01/21/18 Amlodipine Besylate [Norvasc -] 5 mg PO DAILY #30 tablet 01/24/18 Furosemide [Lasix] 40 mg PO DAILY #30 tablet 01/24/18 Donepezil HCl [Aricept -] 10 mg PO DAILY 03/10/18 Mirtazapine [Remeron -] 15 mg PO DAILY 03/10/18 Tramadol HCl/Acetaminophen 1 tab PO PRN 03/10/18 [Tramadol-Acetaminophn 37.5-325] A/P: Patient is an 87 year old woman with a significant past medical history of CHF, HTN, HLD, KS, C/S, pacemaker, depression, and dementia, who presents to the emergency department with, altered mental status. # Acute metabolic encephalopathy most likely due to Remeron, patient is fully awake and comfortable today # OPAL - Etiology unclear. Will consult nephrology and avoid nephrotoxic agents such as NSAIDS, aminoglycosides, contrast dyes and certain alternative medicine products. # DVT prophylaxis - Heparin 5000u sq tid. # Advance directives - Full code Visit type - Emergency Visit Emergency Visit: Yes ED Registration Date: 03/10/18 Care time: The patient presented to the Emergency Department on the above date and was hospitalized for further evaluation of their emergent condition. - New Patient This patient is new to me today: No - Critical Care Critical Care patient: No - Discharge Referral Referred to [facility] Med P.C.: No
[2018-03-12] MEDS: HEPARIN NA (PORCINE) 5,000 UNITS/ML 1ML VIAL SQ SCH ×2 (05:19→15:58)
[2018-03-12 06:36] LABS: ANION GAP 5 (8-16); BLOOD UREA NITROGEN 16 mg/dL (7-18); CALCIUM 9.3 mg/dL (8.5-10.1); CHLORIDE 106 mmol/L (98-107); CO2 31 mmol/L (21-32); GLUCOSE,RANDOM 97 mg/dL (74-106); POTASSIUM 4.1 mmol/L (3.5-5.1); SODIUM 142 mmol/L (136-145)
[2018-03-12 06:37] LABS: CREATININE 1.2 mg/dL (0.55-1.02)
--- NOTE | 2018-03-12 08:44 | PN ---
Physical Exam: SUBJECTIVE: Patient seen and examined at bedside. Patient awake and alert. no new complaints. OBJECTIVE: Vital Signs Period Temp Pulse Resp BP Sys/Childress Pulse Ox Last 24 Hr 98 F-98.8 F 60-71 14-20 129-180/51-108 100-100 GENERAL: The patient is awake, alert, and fully oriented, in no acute distress. LUNGS: Breath sounds equal, clear to auscultation bilaterally, no wheezes, no crackles, no accessory muscle use. HEART: Regular rate and rhythm, S1, S2 without murmur, rub or gallop. ABDOMEN: Soft, nontender, nondistended, normoactive bowel sounds, no guarding, no rebound, no hepatosplenomegaly, no masses. EXTREMITIES: 2+ pulses, warm, well-perfused, no edema. NEUROLOGICAL: Cranial nerves II through X grossly intact. Normal speech, gait not observed. SKIN: Warm, dry, normal turgor, no rashes or lesions noted Laboratory Results - last 24 hr 03/10/18 03/10/18 03/10/18 07:51 11:13 15:11 Sodium Potassium Chloride Carbon Dioxide Anion Gap BUN Creatinine Creat Clearance w eGFR POC Glucometer 89.05534 108.73306 135.45117 Random Glucose Hemoglobin A1c % Calcium 03/10/18 03/10/18 03/11/18 19:14 21:49 01:58 Sodium Potassium Chloride Carbon Dioxide Anion Gap BUN Creatinine Creat Clearance w eGFR POC Glucometer 148.07579 137.29236 134.92347 Random Glucose Hemoglobin A1c % Calcium 03/11/18 03/11/18 03/11/18 05:30 05:52 08:15 Sodium Potassium Chloride Carbon Dioxide Anion Gap BUN Creatinine Creat Clearance w eGFR POC Glucometer 128.10692 105.02298 Random Glucose Hemoglobin A1c % 5.7 Calcium 03/11/18 03/12/18 12:09 05:30 Sodium 142 Potassium 4.1 Chloride 106 Carbon Dioxide 31 Anion Gap 5 L BUN 16 Creatinine 1.2 H Creat Clearance w eGFR 42.70 POC Glucometer 132.67922 Random Glucose 97 Hemoglobin A1c % Calcium 9.3 Active Medications Generic Name Dose Route Start Last Admin Trade Name Freq PRN Reason Stop Dose Admin Amlodipine Besylate 5 mg 03/12/18 10:00 Norvasc - PO DAILY RAZ Furosemide 20 mg 03/12/18 10:00 Lasix Injection - IVPUSH DAILY [facility] Heparin Sodium (Porcine) 5,000 unit 03/12/18 06:00 03/12/18 05:19 Heparin - SQ 5,000 unit TID RAZ Administration Memantine 10 mg 03/12/18 10:00 Namenda - PO DAILY [facility] Metoprolol Tartrate 5 mg 03/11/18 18:04 Lopressor Injection - IVPUSH Q4H PRN HYPERTENSION ASSESSMENT/PLAN: The patient is an 87 yo f w/ PMH CHF, COPD on 2L O2 BIBEMS for lethargy and AMS. #AMS likely 2/2 metabolic encephalopathy VS. accidental medication overdose. -Head CT: no acute pathology -flumazenil administered in ED with great effect -UTox negative -carotid dopplers ordered -f/u echo -f/u MRI brain #[facility] dementia -home aricept and remeron held #FEN -NS @ 100 -monitor lytes -NPO #PPX -Heparin SQ 5k units TID #dispo -admit to ICU
--- NOTE | 2018-03-12 08:44 | PN ---
Physical Exam: SUBJECTIVE: Patient seen and examined in the ICU. Interview limited by language barrier, but pt states she is feeling better than when she came in. She is awake and sitting up in bed eating breakfast without assistance. OBJECTIVE: Vital Signs Period Temp Pulse Resp BP Sys/Childress Pulse Ox Last 24 Hr 98 F-98.8 F 60-71 14-20 129-180/51-108 100-100 GENERAL: Awake, alert, and oriented to self and place, in no acute distress. HEAD: Normal with no signs of trauma. EYES: Pupils no longer pinpoint, Equal round and reactive. sclera anicteric, conjunctiva clear. No lid lag. EARS, NOSE, THROAT: Ears normal, nares patent, oropharynx clear without exudates. Moist mucous membranes. NECK: supple without lymphadenopathy, JVD, or masses. LUNGS: Breath sounds decreased, clear to auscultation bilaterally. No wheezes, and no crackles. No accessory muscle use. HEART: Regular rate and rhythm, normal S1 and S2 without murmur, rub or gallop. ABDOMEN: Soft, nontender, not distended, normoactive bowel sounds, no guarding, no rebound, no masses. MUSCULOSKELETAL: No bony deformities or tenderness. No CVA tenderness. UPPER EXTREMITIES: warm, well-perfused. No cyanosis. No clubbing. No peripheral edema. LOWER EXTREMITIES: warm, well-perfused. No calf tenderness. No peripheral edema. NEUROLOGICAL: Cranial nerves II-XII grossly intact, awake and alert today, mental status much improved from admission, unsure of baseline SKIN: Warm, dry, normal turgor, no rashes or lesions noted. Laboratory Results - last 24 hr 03/10/18 03/10/18 03/10/18 07:51 11:13 15:11 Sodium Potassium Chloride Carbon Dioxide Anion Gap BUN Creatinine Creat Clearance w eGFR POC Glucometer 89.71931 108.13936 135.10444 Random Glucose Hemoglobin A1c % Calcium 03/10/18 03/10/18 03/11/18 19:14 21:49 01:58 Sodium Potassium Chloride Carbon Dioxide Anion Gap BUN Creatinine Creat Clearance w eGFR POC Glucometer 148.24914 137.33602 134.98526 Random Glucose Hemoglobin A1c % Calcium 03/11/18 03/11/18 03/11/18 05:30 05:52 08:15 Sodium Potassium Chloride Carbon Dioxide Anion Gap BUN Creatinine Creat Clearance w eGFR POC Glucometer 128.26315 105.41493 Random Glucose Hemoglobin A1c % 5.7 Calcium 03/11/18 03/12/18 12:09 05:30 Sodium 142 Potassium 4.1 Chloride 106 Carbon Dioxide 31 Anion Gap 5 L BUN 16 Creatinine 1.2 H Creat Clearance w eGFR 42.70 POC Glucometer 132.02081 Random Glucose 97 Hemoglobin A1c % Calcium 9.3 Active Medications Generic Name Dose Route Start Last Admin Trade Name Freq PRN Reason Stop Dose Admin Amlodipine Besylate 5 mg 03/12/18 10:00 Norvasc - PO DAILY RAZ Furosemide 20 mg 03/12/18 10:00 Lasix Injection - IVPUSH DAILY RAZ Heparin Sodium (Porcine) 5,000 unit 03/12/18 06:00 03/12/18 05:19 Heparin - SQ 5,000 unit TID RAZ Administration Memantine 10 mg 03/12/18 10:00 Namenda - PO DAILY RAZ Metoprolol Tartrate 5 mg 03/11/18 18:04 Lopressor Injection - IVPUSH Q4H PRN HYPERTENSION ASSESSMENT/PLAN: 87 yo female admitted to the ICU after being found unresponsive with AMS s/p narcan with presumed dx of medication interaction Neuro -AMS resolved, unsure of exact neuro baseline most likely caused by Histaminergic response after starting high dose of mirtazapine -Urine tox negative -CT negative for hemorrhagic stroke Cardio -HTN, HLD, CHF Limit fluid as to avoid fluid overload Home med Norvasc 5 mg PO Daily ASA 81 mg PO Daily Respiratory -Currently not in fluid overload -COPD on home O2 of 2L -ABG improved GI -Hyperammonemia with undetermined cause, no evidence of acute or chronic liver failure or cirrhosis Resolved Renal -Mild renal insufficiency, seems to be at her baseline Cr. DVT Prophylaxis -SCD's -Heparin 5000 SQ TID FEN -Fluids: No fluids -Electrolytes: No electrolyte abnormalities -Nutrition: Soft diabetic diet Disposition Transfer to Med/Surg Problem List - Problems (1) Altered mental status Code(s): R41.82 - ALTERED MENTAL STATUS, UNSPECIFIED Qualifiers: Altered mental status type: unspecified Qualified Code(s): R41.82 - Altered mental status, unspecified (2) Hyperammonemia Code(s): E72.20 - DISORDER OF UREA CYCLE METABOLISM, UNSPECIFIED Visit type - Emergency Visit Emergency Visit: Yes ED Registration Date: 03/10/18 Care time: The patient presented to the Emergency Department on the above date and was hospitalized for further evaluation of their emergent condition. - New Patient This patient is new to me today: No - Critical Care Critical Care patient: Yes Total Critical Care Time (in minutes): 35 Critical Care Statement: The care of this patient involved high complexity decision making to prevent further life threatening deterioration of the patient 's condition and/or to evaluate & treat vital organ system(s) failure or risk of failure.
[2018-03-12] MEDS ORDERED: PT OWN MED DRAWER 7, Y5N ONE ×2 (09:33→14:39)
[2018-03-12] MEDS ORDERED: FUROSEMIDE 40 MG/4 ML INJECTABLE VIAL IVPUSH SCH (10:00)
[2018-03-12] MEDS ORDERED: MEMANTINE HCL 10 MG TABLET (FP) PO SCH (10:00)
[2018-03-12] MEDS ORDERED: amLODIPine BESYLATE 5 MG TABLET (FP) PO SCH (10:00)
[2018-03-12 12:23] VITALS: BMI 27.3
[2018-03-12 13:02] VITALS: TEMP 98.6
--- NOTE | 2018-03-12 13:53 | ECHO ---
Name: KUN CORNEJOSHYLA Exam:Adult Echocardiogram Study Date: 03/12/2018 10:14 AM Age: 87 yrs Reason For Study: LV Function Height: 63 in Weight: 155 lb BSA: 1.7 m2 MMode/2D Measurements & Calculations IVSd: 1.3 cm LA dimension: 3.1 cm LVIDd: 4.1 cm LVIDs: 3.0 cm LVPWd: 1.3 cm LVPWs: 1.6 cm EDV(Teich): 75.7 ml ESV(Teich): 35.3 ml LVOT diam: 3.0 cm LAV (MOD-bp): 71.0 ml Doppler Measurements & Calculations MV V2 max: 181.9 cm/sec MV E max logan: 85.9 cm/sec MV max P.2 mmHg MV A max logan: 149.6 cm/sec MV V2 mean: 99.6 cm/sec MV E/A: 0.57 MV mean P.7 mmHg MV dec time: 0.27 sec MV V2 VTI: 55.1 cm Ao V2 max: 322.0 cm/sec AI max olgan: 495.5 cm/sec Ao max P.9 mmHg AI max P.3 mmHg AI P1/2t: 438.4 msec AI dec slope: 331.1 cm/sec2 LISA(V,D): 4.1 cm2 LV V1 max P.9 mmHg MR max logan: 594.8 cm/sec LV V1 max: 193.1 cm/sec MR max P.5 mmHg TR max logan: 273.6 cm/sec Lat Peak E' Logan: 4.6 cm/sec TR max P.0 mmHg Lat E/e': 18.6 Procedure A two-dimensional transthoracic echocardiogram with color flow and Doppler was performed. The study w as technically difficult with many images being suboptimal in quality. Left Ventricle The left ventricle is not well visualized. The left ventricle is grossly normal size. Due to the poor quality of the echocardiogram, an assessment of left ventricular ejection fraction cannot be made. E/A revers al consistent with but not diagnostic of poor LV compliance. Regional wall motion abnormalities cannot b e excluded due to limited visualization. There is apical septal wall akinesis. Apical wall motion abnor mality may reflect pacemaker activation. There is apical akinesis. There is apical anterior wall akinesis. Right Ventricle The right ventricle is not well visualized. There is a pacemaker lead in the right ventricle. Atria Normal left and right atrial size and function. Mitral Valve The mitral valve is not well visualized. There is moderate mitral valve thickening. There is moderate mitral regurgitation. Tricuspid Valve The tricuspid valve is not well visualized. There is no tricuspid stenosis. There is mild tricuspid regurgitation. Right ventricular systolic pressure is elevated at 30-40mmHg. Aortic Valve The aortic valve is not well visualized. Hemodynamically significant valvular aortic stenosis cannot be excluded. Mild to moderate aortic regurgitation. Pulmonic Valve The pulmonic valve is not well visualized. Great Vessels The aortic root is not well visualized. Pericardium/Pleura There is no pericardial effusion. Interpretation Summary The left ventricle is not well visualized. The study was technically difficult with many images being suboptimal in quality. Regional wall motion abnormalities cannot be excluded due to limited visualization. The mitral valve is not well visualized. There is moderate mitral valve thickening. E/A reversal consistent with but not diagnostic of poor LV compliance Mild to moderate aortic regurgitation. There is a pacemaker lead in the right ventricle. The left ventricle is grossly normal size. Due to the poor quality of the echocardiogram, an assessment of left ventricular ejection fraction ca nnot be made. There is apical septal wall akinesis. Apical wall motion abnormality may reflect pacemaker activation. There is apical akinesis. There is apical anterior wall akinesis. There is moderate mitral regurgitation. There is mild tricuspid regurgitation. Right ventricular systolic pressure is elevated at 30-40mmHg. Hemodynamically significant valvular aortic stenosis cannot be excluded. MD Pradip Rodriguez 03/12/2018 01:53 PM
[2018-03-12 15:41] VITALS: BP 123/76; PULSE 74
--- NOTE | 2018-03-12 15:45 | PN ---
Teaching Attending Note Name of Resident: Dillon Darby ATTENDING PHYSICIAN STATEMENT I saw and evaluated the patient. I reviewed the resident's note and discussed the case with the resident. I agree with the resident's findings and plan as documented. SUBJECTIVE: Patient seen and examined in the ICU. Mental status improved. No specific complaints. No CP or SOB. OBJECTIVE: Intake & Output 03/09/18 03/10/18 03/11/18 03/12/18 23:59 23:59 23:59 23:59 Intake Total 975 1450 Output Total 2100 500 950 Balance -1125 950 -950 Weight 155 lb 156 lb 6.4 oz 154 lb 1.65 oz 154 lb Last Vital Signs Temp Pulse Resp BP Pulse Ox 98.6 F 74 20 123/76 100 03/12/18 12:00 03/12/18 14:00 03/12/18 14:00 03/12/18 14:00 03/12/18 09:00 Active Medications Amlodipine Besylate (Norvasc -) 5 mg PO DAILY [facility] Last Admin: 03/12/18 10:58 Dose: 5 mg Furosemide (Lasix Injection -) 20 mg IVPUSH DAILY [facility] Last Admin: 03/12/18 10:58 Dose: 20 mg Heparin Sodium (Porcine) (Heparin -) 5,000 unit SQ TID [facility] Last Admin: 03/12/18 05:19 Dose: 5,000 unit Memantine (Namenda -) 10 mg PO DAILY [facility] Last Admin: 03/12/18 10:58 Dose: 10 mg Metoprolol Tartrate (Lopressor Injection -) 5 mg IVPUSH Q4H PRN PRN Reason: HYPERTENSION Gen: NAD at rest Heart: RRR Lung: decreased breath sounds at the bases Abd: soft, nontender Ext: no edema Laboratory Results - last 24 hr 03/10/18 03/10/18 03/10/18 07:51 11:13 15:11 Sodium Potassium Chloride Carbon Dioxide Anion Gap BUN Creatinine Creat Clearance w eGFR POC Glucometer 89.73500 108.67426 135.01793 Random Glucose Calcium 03/10/18 03/10/18 03/11/18 19:14 21:49 01:58 Sodium Potassium Chloride Carbon Dioxide Anion Gap BUN Creatinine Creat Clearance w eGFR POC Glucometer 148.92035 137.25269 134.83320 Random Glucose Calcium 07/03/11/18 03/11/18 05:52 08:15 12:09 Sodium Potassium Chloride Carbon Dioxide Anion Gap BUN Creatinine Creat Clearance w eGFR POC Glucometer 128.46834 105.77118 132.82594 Random Glucose Calcium 03/12/18 05:30 Sodium 142 Potassium 4.1 Chloride 106 Carbon Dioxide 31 Anion Gap 5 L BUN 16 Creatinine 1.2 H Creat Clearance w eGFR 42.70 POC Glucometer Random Glucose 97 Calcium 9.3 ASSESSMENT AND PLAN: Altered Mental Status likely from overmedication COPD Chronic Hypoxic Respiratory Failure LV Diastolic Dysfunction Mitral Regurgitation Rheumatoid Arthritis CKD Dementia - Slow introduction of home meds - BP control - PO as tolerated - D/C IVF - Aspiration precautions - DVT prophylaxis - D/C planning Dr Juares Critical care time spent in reviewing chart, evaluating patient and formulating plan - 36 minutes.
--- NOTE | 2018-03-12 16:06 | DS ---
Physical Exam: SUBJECTIVE: Patient seen and examined at bedside. No new complaints. Patient awake and alert. No events overnight. OBJECTIVE: Vital Signs Period Temp Pulse Resp BP Sys/Childress Pulse Ox Last 24 Hr 98.5 F-98.8 F 60-85 14-20 123-180/51-108 100-100 PHYSICAL EXAM GENERAL: The patient is awake, alert, and fully oriented, in no acute distress. NECK: Trachea midline, full range of motion, supple. LUNGS: Breath sounds equal, clear to auscultation bilaterally, no wheezes, no crackles, no accessory muscle use. HEART: Regular rate and rhythm, S1, S2 without murmur, rub or gallop. ABDOMEN: Soft, nontender, nondistended, normoactive bowel sounds, no guarding, no rebound, no hepatosplenomegaly, no masses. EXTREMITIES: 2+ pulses, warm, well-perfused, no edema. NEUROLOGICAL: Cranial nerves II through X grossly intact. Normal speech, gait not observed. SKIN: Warm, dry, normal turgor, no rashes or lesions noted. LABS Laboratory Results - last 24 hr 03/10/18 03/10/18 03/10/18 07:51 11:13 15:11 Sodium Potassium Chloride Carbon Dioxide Anion Gap BUN Creatinine Creat Clearance w eGFR POC Glucometer 89.75019 108.84227 135.47912 Random Glucose Calcium 03/10/18 03/10/18 03/11/18 19:14 21:49 01:58 Sodium Potassium Chloride Carbon Dioxide Anion Gap BUN Creatinine Creat Clearance w eGFR POC Glucometer 148.52965 137.24380 134.36473 Random Glucose Calcium 03/11/18 03/11/18 03/11/18 05:52 08:15 12:09 Sodium Potassium Chloride Carbon Dioxide Anion Gap BUN Creatinine Creat Clearance w eGFR POC Glucometer 128.59379 105.08175 132.85656 Random Glucose Calcium 03/12/18 05:30 Sodium 142 Potassium 4.1 Chloride 106 Carbon Dioxide 31 Anion Gap 5 L BUN 16 Creatinine 1.2 H Creat Clearance w eGFR 42.70 POC Glucometer Random Glucose 97 Calcium 9.3 HOSPITAL COURSE: Date of Admission:03/10/18 The patient is an 87 y/o F w/ PMHx CHF, COPD on 2L O2, Alzheimer dementia, pacemaker, RA, HTN who was BIBEMS in the company of her family after she was observed to be lethargic, groaning, drooling on one side. The patient was started on Remeron and Aricept 2 days prior to onset. In the ED, she was noted to have pinpoint pupils and was given narcan with minimal effect, necessitating the use of a Narcan drip. The patient was found to have a hyperammonemia to 62.2 , a hyperkalemia to 5.2, a BUN of 25 and a creatinine of 1.4. CT head was negative for acute pathology. The patient was given flumazenil and rectal lactulose, after which the patient became responsive and interactive with her family. The patient was admitted to the ICU for further assessment and treatment of toxic encephalopathy 2/2 Remeron overdose. Neurology was consulted. GI was consulted. Neurology noted that the prescribed dose of mirtazepine (15mg) reported was not typical for a patient of this advanced age. (correct dosage 7.5mg). GI saw no stigmata of advanced liver disease responsible for the patient's hyperammonemia. Repeat ammonium was normal. Carotid dopplers were WNL, echo revealed apical akinesis, anterior wall akinesis as well as mitral and tricuspid regurgitation. The patient's mental status remained at her baseline as per her family for the remainder of her hospital stay, and she was deemed stable for transfer to a telemetry floor. The patient was discharged home with instructions to follow up with her PCP within one week of discharge as well as instructions to followup with neurology within one week of discharge. The patient was instructed to STOP taking her prescribed Remeron until she visited her PCP for review and adjustment of her medications. Date of Discharge: 03/12/18 Minutes to complete discharge: 40 Discharge Summary Reason For Visit: HYPEAMMONEMIA,ALTERED MENTAL STATUS,OPIOID Current Active Problems Altered mental status (Acute) Hyperammonemia (Acute) Opioid overdose (Acute) Condition: Improved - Instructions Diet, Activity, Other Instructions: You were admitted to the hospital because of complications related to your home medications. Your condition has improved and you are ready for discharge. Please STOP taking your Remeron and fololow up with your primary care physician within one week of discharge home to adjust your medications and their doses. Please follow up with a neurologist within one week of discharge home. We have included information for Dr. Willoughby, who saw you during your hospital stay, in your discharge paperwork. If you begin to experience chest pain, shortness of breath, fevers, or chills, please call your primary care physician or return to the emergency department. Referrals: Carlos Willoughby MD [Staff Physician] - 1 Week Darwin Nicole PA [Primary Care Provider] - 1 Week Disposition: HOME - Home Medications Comprehensive Discharge Medication List: Ambulatory Orders Aspirin [ASA -] 81 mg PO DAILY 11/14/17 Memantine HCl [Namenda -] 10 mg PO DAILY 01/21/18 Pravastatin Sodium [Pravachol -] 40 mg PO HS 01/21/18 Amlodipine Besylate [Norvasc -] 5 mg PO DAILY #30 tablet 01/24/18 Furosemide [Lasix] 40 mg PO DAILY #30 tablet 01/24/18 Tramadol HCl/Acetaminophen [Tramadol-Acetaminophn 37.5-325] 1 tab PO PRN This patient is new to me today: Yes Date on this admission: 03/12/18 Emergency Visit: Yes ED Registration Date: 03/10/18 Care time: The patient presented to the Emergency Department on the above date and was hospitalized for further evaluation of their emergent condition. Critical Care patient: Yes Total Critical Care Time (in minutes): 35 Critical Care Statement: The care of this patient involved high complexity decision making to prevent further life threatening deterioration of the patient 's condition and/or to evaluate & treat vital organ system(s) failure or risk of failure. - Discharge Referral Referred to [facility] Med [facility] No
--- NOTE | 2018-03-12 19:17 | PN ---
Teaching Attending Note Name of Resident: Tom Brady ATTENDING PHYSICIAN STATEMENT I saw and evaluated the patient. I reviewed the resident's note and discussed the case with the resident. I agree with the resident's findings and plan as documented. SUBJECTIVE: Comfortable with no acute distress OBJECTIVE: Vital Signs Temperature 98.6 F 03/12/18 12:00 Pulse Rate 74 03/12/18 14:00 Respiratory Rate 20 03/12/18 14:00 Blood Pressure 123/76 03/12/18 14:00 O2 Sat by Pulse Oximetry (%) 100 03/12/18 09:00 CBCD WBC 7.4 K/mm3 (4.0-10.0) 03/11/18 05:30 RBC 3.76 M/mm3 (3.60-5.2) 03/11/18 05:30 Hgb 12.4 GM/dL (10.7-15.3) 03/11/18 05:30 Hct 35.7 % (32.4-45.2) 03/11/18 05:30 MCV 95.0 fl (80-96) 03/11/18 05:30 MCHC 34.7 g/dl (32.0-36.0) 03/11/18 05:30 RDW 12.0 % (11.6-15.6) 03/11/18 05:30 Plt Count 155 K/MM3 (134-434) D 03/11/18 05:30 MPV 9.8 fl (7.5-11.1) 03/11/18 05:30 CMP Sodium 142 mmol/L (136-145) 03/12/18 05:30 Potassium 4.1 mmol/L (3.5-5.1) 03/12/18 05:30 Chloride 106 mmol/L (98-107) 03/12/18 05:30 Carbon Dioxide 31 mmol/L (21-32) 03/12/18 05:30 Anion Gap 5 (8-16) L 03/12/18 05:30 BUN 16 mg/dL (7-18) 03/12/18 05:30 Creatinine 1.2 mg/dL (0.55-1.02) H 03/12/18 05:30 Creat Clearance w eGFR 42.70 (>60) 03/12/18 05:30 Random Glucose 97 mg/dL (74-106) 03/12/18 05:30 Calcium 9.3 mg/dL (8.5-10.1) 03/12/18 05:30 Total Bilirubin 0.3 mg/dL (0.2-1.0) 03/11/18 05:30 AST 18 U/L (15-37) 03/11/18 05:30 ALT 17 U/L (12-78) 03/11/18 05:30 Alkaline Phosphatase 84 U/L (45-117) D 03/11/18 05:30 Total Protein 6.1 g/dl (6.4-8.2) L 03/11/18 05:30 Albumin 3.1 g/dl (3.4-5.0) L 03/11/18 05:30 CARDIAC ENZYMES Creatine Kinase 58 IU/L (26-192) 03/10/18 01:22 Troponin I 0.03 ng/ml (0.00-0.05) 03/10/18 01:22 Home Medications Medication Instructions Recorded Aspirin [ASA -] 81 mg PO DAILY 11/14/17 Memantine HCl [Namenda -] 10 mg PO DAILY 01/21/18 Pravastatin Sodium [Pravachol -] 40 mg PO HS 01/21/18 Amlodipine Besylate [Norvasc -] 5 mg PO DAILY #30 tablet 01/24/18 Furosemide [Lasix] 40 mg PO DAILY #30 tablet 01/24/18 Tramadol HCl/Acetaminophen 1 tab PO PRN 03/10/18 [Tramadol-Acetaminophn 37.5-325] PE: per resident's note ASSESSMENT AND PLAN: Patient is an 87 year old woman with a significant past medical history of CHF, HTN, HLD, ID, C/S, pacemaker, depression, and dementia, who presents to the emergency department with, altered mental status. # Acute metabolic encephalopathy most likely due to Remeron, patient is fully awake and comfortable now.will discharge her home # OPAL - improved
== END 2018-03-12 17:04 | disposition home or self-care (01) | DRG 917 ==
LOC: JER 23:44 → JERBED 03-10 02:33 → JICU 03-10 05:06
PROVIDERS: ADMIT Internal Medicine; ATTEND Internal Medicine
DX: T43.021A Poisoning by tetracyclic antidepressants, accidental (unintentional), initial encounter (principal); G92 Toxic encephalopathy; N17.9 Acute kidney failure, unspecified; J96.11 Chronic respiratory failure with hypoxia; E72.20 Disorder of urea cycle metabolism, unspecified; T40.2X1A Poisoning by other opioids, accidental (unintentional), initial encounter; E78.00 Pure hypercholesterolemia, unspecified; I11.0 Hypertensive heart disease with heart failure; F03.90 Unspecified dementia, unspecified severity, without behavioral disturbance, psychotic disturbance, mood disturbance, and anxiety; I25.2 Old myocardial infarction; F32.9 Major depressive disorder, single episode, unspecified; J44.9 Chronic obstructive pulmonary disease, unspecified; G30.9 Alzheimer's disease, unspecified; F02.80 Dementia in other diseases classified elsewhere, unspecified severity, without behavioral disturbance, psychotic disturbance, mood disturbance, and anxiety; M06.9 Rheumatoid arthritis, unspecified; I34.0 Nonrheumatic mitral (valve) insufficiency; E87.5 Hyperkalemia; Y92.098 Other place in other non-institutional residence as the place of occurrence of the external cause; Z95.0 Presence of cardiac pacemaker; Z99.81 Dependence on supplemental oxygen
CPT/HCPCS: 36415; 36600; 70450-TC; 71045-TC-FY; 74018-TC-FY; 80048; 80053; 80307; 81003; 81015; 82140; 82375; 82550; 82803; 82962; 83036; 83050; 83735; 84100; 84443; 84484; 85025; 85610; 87040; 87086; 93005; 93010; 93306-TC; 93880-TC; 99283-25; J1644; J7030

== ENCOUNTER 2021-01-29 00:32 | Emergency (ER) | payer MEDICARE ==
[2021-01-29 01:06] VITALS: TEMP 98; BMI 28.9
[2021-01-29] MEDS ORDERED: ACETAMINOPHEN 500 MG TABLET (FP) PO ONE (01:51)
[2021-01-29] MEDS ORDERED: ACETAMINOPHEN 325 MG TABLET (FP) ONE (01:53)
[2021-01-29 05:56] VITALS: BP 132/68; PULSE 72
== END 2021-01-29 05:56 | disposition home or self-care (01) ==
LOC: JER 00:32
DX: M79.602 Pain in left arm (principal)
CPT/HCPCS: 71101-TC-LT-FY; 73030-TC-LT-FY; 73060-TC-LT-FY; 73070-TC-LT-FY; 99284-25

== ENCOUNTER 2021-01-30 07:35 | Emergency (ER) | payer MEDICARE ==
[2021-01-30 07:59] VITALS: BP 145/79; PULSE 65; TEMP 97.6; BMI 28.0
== END 2021-01-30 10:07 | disposition home or self-care (01) ==
LOC: JER 07:35
DX: S42.335A Nondisplaced oblique fracture of shaft of humerus, left arm, initial encounter for closed fracture (principal); S42.292A Other displaced fracture of upper end of left humerus, initial encounter for closed fracture; S22.42XA Multiple fractures of ribs, left side, initial encounter for closed fracture
CPT/HCPCS: 99281-25